=== PATIENT | male | born 1955 | race Caucasian/White ===

== ENCOUNTER 2016-12-19 15:36 | Inpatient (IN) | payer OTHER ==
[2016-12-19] VITALS (9 sets, daily range): BP systolic 145–224; BP diastolic 75–99; PULSE 59–79; RESP 16–26; O2SAT 94–97
[~2016-12-19] VITALS: Ht 180.3 cm; Wt 81.5 kg
--- NOTE | 2016-12-19 15:44 | ED.REPORT ---
HPI-Neurologic Deficit Date of Service Dec 19, 2016 ED Provider: Marvin Fiore MD Patient is a 61 year old male who presents to the ED via EMS due to falling off a ladder. Associated symptoms include confusion, lower back pain, right side chest pain and abdominal pain. He denies headache or neck pain. Per EMS, the patient did not lose consciousness or hit his head. He is unable to answer basic questions about the year or his age. Nursing Notes Stated Complaint: FALL FROM LADDER/QUESTIONABLE CVA Nursing Notes Reviewed: Yes Allergies: Coded Allergies: No Known Allergies (Unverified , 12/19/16) General Time Seen by Provider: 15:52 Chief Complaint Falling Hx Obtained From: Patient, EMS Arrived By: Ambulance Sudden in Onset?: Yes Onset Occurred: Just prior to arrival Symptom Duration: Since onset Location: : Back lower Severity: Current: Moderate Recent Healthcare: No recent doctor visit, No recent hospitalization Similar Sx Previous: No Past Medical History Past Surgical History none reported Smoking History Never Smoker Social History Alcohol Use: "Social" Drug Use: Denies drug use Other Social History: Good social support Ambulatory Status Independent Review of Systems Unable to Obtain ROS Patient condition, Mental status Respiratory: Denies: Non-productive cough, Shortness of breath Cardiovascular: Reports: Chest pain Musculoskeletal: Reports: Back pain, Denies: Extremity pain, Neck pain Neurologic: Denies: Change LOC, Headache Psychiatric: Reports: Change mental status, Confusion Physical Exam Initial Vital Signs Vital Signs (First) Date Time Temp Pulse Resp B/P Pulse Ox O2 Delivery O2 Flow Rate FiO2 12/19/16 15:54 37.3 78 201/99 97 Room Air 12/19/16 16:20 21 Initial VS: Reviewed General/Constitutional: Awake, Alert Head / Eyes: Atraumatic, Normocephalic, PERRL, EOMI Respiratory / Chest: Atraumatic, Breath sounds NL, Breath sounds = bilat, No respiratory distress right chest wall tender Cardiovascular: Heart rate NL, Regular rhythm, Heart sounds NL hypertensive Mental Status: Positive: Confused, Disoriented to time not oriented perseverated equal pulses x4 Neck: Atraumatic, Supple, Full range of motion no cervical spine tenderness ABDOMEN: abrasion to right eflank right lower rib cage and flank tenderness Back: Atraumatic, Full range of motion, No midline vertebral tend, No paraspinal tenderness Upper Extremity / MS: Atraumatic, Full range of motion moving both extremities symmetrically Lower Extremity / Pelvis / MS: Atraumatic, Full range of motion, Pelvis stable moving both extremities symmetrically Skin: Atraumatic, Color NL, No rash, Warm, Dry Psychiatric: Affect NL, Mood NL Interpretation & Diagnostics Lab Results Interpretation Result Diagram: 12/19/16 1614 12/19/16 1552 Test 12/19/16 15:52 12/19/16 16:14 White Blood Count 11.7th/mm3 (3.8-10.1) Red Blood Count 5.48mil/mm3 (4.40-5.80) Mean Corpuscular Volume 84.3fL (81-100) Mean Corpuscular Hemoglobin 27.7pg (27.0-35.0) Mean Corpuscular Hemoglobin Concent 32.9% (32.0-37.0) Red Cell Distribution Width 13.0% (12.3-15.4) Platelet Count 227bil/L (150-400) Neutrophils (%) (Auto) 78.6% (40-74) Lymphocytes (%) (Auto) 11.0% (14-46) Monocytes (%) (Auto) 9.1% (4-12) Eosinophils (%) (Auto) 0.4% (0-5) Basophils (%) (Auto) 0.4% (0-3) Prothrombin Time 11.0sec (8.1-12.5) Prothromb Time International Ratio 1.03ratio Activated Partial Thromboplast Time 22.9sec (22.8-33.0) Sodium Level 141mEq/L (134-144) Potassium Level 4.4mEq/L (3.5-5.2) Chloride Level 101mEq/L (97-108) Carbon Dioxide Level 24mmol/L (18-29) Blood Urea Nitrogen 12mg/dL (8-27) Creatinine 0.77mg/dL (0.76-1.27) Estimat Glomerular Filtration Rate 109mL/min (>59) Glucose Level 123mg/dL (60-99) Calcium Level 9.4mg/dL (8.5-10.1) Total Bilirubin 0.6mg/dL (0.0-1.2) Aspartate Amino Transf (AST/SGOT) 40U/L (0-50) Alanine Aminotransferase (ALT/SGPT) 31U/L (0-44) Alkaline Phosphatase 89U/L (25-160) Troponin T < 0.010ug/L (0.0-0.011) Total Protein 8.0g/dL (6.4-8.4) Albumin 4.7g/dL (3.4-5.0) Hold Louie Top Tube Received (Received) Alcohols < 10mg/dL (0-10) Hemoglobin 14.1g/dL (13.8-17.2) Hematocrit 42.2% (41.0-50.0) ECG Interpretation ECG Interpretation: non specific ST changes Time: 16:15 Interpreted by: ED physician Normal ECG Interpretation: Normal rate (78), Normal sinus rhythm X-Ray Chest Interpretation Chest Xray Interpretation: IMPRESSION: Right-sided pulmonary opacity and multiple rib fractures, better visualized on CT chest dated 12/19/06. In addition, CT chest also demonstrated likely small pneumothorax versus bronchus injury. Dictated by: Sujatha Lipscomb M.D. on 12/19/2016 at 15:34 Approved by: Sujatha Lipscomb M.D. on 12/19/2016 at 15:36 View: Portable, 1 view Interpretation / Wet Read by: Interpret - Radiologist CT Head Interpretation IMPRESSION: No acute process. Dictated by: Guanako Ruiz M.D. on 12/19/2016 at 16:09 Approved by: Guanako Ruiz M.D. on 12/19/2016 at 16:09 Interpretation / Wet Read by: Interpret - Radiologist CT C-Spine Interpretation IMPRESSION: 1. No acute bony injury to the cervical and upper thoracic spine from the foramen magnum to the T4 level. 2. Tiny right apical pneumothorax, secondary to previously noted multiple right rib fractures. Dictated by: Alex Ren M.D. on 12/19/2016 at 16:59 Approved by: Alex Ren M.D. on 12/19/2016 at 17:05 Interpretation / Wet Read by: Interpret - Radiologist CT Abd / Pelvis Interpretation IMPRESSION: 1. Nondisplaced right lateral rib 4th through 12th rib fractures. 2. Mild widened appearance of right major fissure. Given adjacent rib fractures and areas of pleural effusion and pulmonary opacity likely contusion/hemothorax, appearance is most suggestive of small pneumothorax along the fissure line. A ruptured bronchus cannot be definitely excluded. 3. Nondisplaced lucency most suggestive of right scapular fracture. 4. Multiple right transverse fractures within the thoracic and lumbar spine as above. 5. Right lower pelvic subcutaneous fat contusion. 6. Sub-centimeter low attenuation hepatic foci, too small to definitively characterize. The above findings were discussed with Dr. Marvin Reeves on 12/19/16 at 3:25 pm AST. Dictated by: Sujatha Lipscomb M.D. on 12/19/2016 at 15:11 Approved by: Sujatha Lipscomb M.D. on 12/19/2016 at 15:34 Interpretation / Wet Read by: Interpret - Radiologist Re-Eval/Medical Decision Med Decision/Clinical Course Patient was initiated prior to arrival when EMS responders notified us in route for a possible code stroke. The patient was immediately brought to room 9, I saw him immediately evaluated him on arrival. There are no physical exam findings of stroke with the exception of confusion. He is awake and alert but not oriented. After basic physical exam he is immediately sent for head CT and CT of the chest abdomen pelvis to exclude other thoracic injuries. His head CT is unremarkable, his NIH stroke scale is 2 which represents his level of confusion. He has obvious traumatic injury to the right chest wall and right flank. This is not a stroke. TPA is not indicated because this is not a stroke. Additionally he has a small hemopneumothorax as well as transverse process fractures and scapular fracture. He will be admitted by trauma surgery. Hemoglobins have been stable. Medicine will be consulted for the chronic uncontrolled hypertension. Source of Hx: Old records Re-Evaluation/Progress #1: Time of Eval: 16:08 Re-Evaluation/Progress Note: Gathered more information. Performed NIH scale. Re-Evaluation/Progress #2: Time of Eval: 16:39 Re-Evaluation/Progress Note: Discussed results and plan for admit. THe patient understands and agrees to the plan for admit. All questions were addressed. NIH Stroke Scale : Level of Consciousness: Alert and responsive (0) Ask Month & Age: Aphasic (2) Open/Close Eyes/Hand Burial Agent: Performs both tasks (0) Horizontal EO Movements: None (0) Visual Hough: No visual loss (0) Facial Palsy: Normal symmetry (0) Right Arm Motor Drift (10s): No drift 10 sec (0) Left Arm Motor Drift (10s): No drift 10 sec (0) Right Leg Motor Drift (5s): No drift 5 sec (0) Left Leg Motor Drift (5s): No drift 5 sec (0) Limb Ataxia FNF/Heel-Chanel: No ataxia (0) Sensation (Arms/Legs/Face): No sensory loss (0) Language Aphasia: No aphasia, normal (0) Dysarthria: No dysarthria, normal (0) Extinction/Inattention: No exctinct/inattent (0) NIHSS Score: 2 Time NIHSS Performed: 16:06 Date NIHSS Performed: Dec 19, 2016 Consultation #1: Call Returned at: 16:18 Tube Roller: Agrees with eval, Agrees with plan Note: [facility] agrees that the patient does not need TPA Consultation #2: Referral / Consult Name: Joshua An MD Consulted With: Surgeon Call Returned at: 16:36 Tube Roller: Will see patient, Agrees with eval, Agrees with plan, Accepts admit Counseled Regarding: Diagnosis, Lab results, Need for admission Discharge & Departure Impression: Primary Impression: Rib fracture Encounter type: initial encounter Rib fracture type: multiple ribs Fracture type: closed Laterality: right Qualified Code: S22.41XA - Multiple fractures of ribs, right side, initial encounter for closed fracture Additional Impressions: Pulmonary contusion Encounter type: initial encounter Laterality: unspecified laterality Qualified Code: S27.329A - Contusion of lung, unspecified, initial encounter Hemopneumothorax Traumatic brain injury Encounter type: initial encounter Loss of consciousness presence/duration: without LOC Qualified Code: S06.9X0A - Unspecified intracranial injury without loss of consciousness, initial encounter Hypertension Hypertension type: unspecified secondary hypertension Qualified Code: I15.9 - Secondary hypertension, unspecified Multiple transverse process fractures Scapular fracture Elbow contusion Disposition: ADMITTED TO HOSPITAL Discharge Condition All VS Reviewed: Yes Condition: Stable Crit Care Except Billable Proc Time Spent: 75-104 minutes Services Performed: Patient management by me, Time spent at bedside, Reviewing test results Critical Care Notes: See MDM Scribe Attestation Portions of this note were transcribed by Olivia Read. I, Dr. Merritt Solares personally performed the history, physical exam and medical decision-making; I reviewed and confirmed the accuracy of the information in the transcribed note. Signed by: Morena Soler, 12/19/16 and 1723 Marvin Reeves DO Dec 19, 2016 15:44 Shandra Read Dec 19, 2016 15:56
[2016-12-19] MEDS ORDERED: 0.9% Sodium Chloride 1,000 ML IV ONE (15:50)
[2016-12-19] MEDS ORDERED: Ondansetron 2 mg/mL 2 mL Inj IVPUSH ONE (15:50)
[2016-12-19 16:08] LABS: BASOPHILS % (AUTO) 0.4 % (0-3); EOSINOPHILS % (AUTO) 0.4 % (0-5); MONOCYTES % (AUTO) 9.1 % (4-12); Mean Corpuscular Hemoglobin 27.7 pg (27.0-35.0); Mean Corpuscular Volume 84.3 fL (81-100); NEUTROPHILS % (AUTO) 78.6 % (40-74); Platelet Count 227 bil/L (150-400)
--- NOTE | 2016-12-19 16:11 | DRSVH ---
PROCEDURE: CT BRAIN WITHOUT CONTRAST ([id number]) INDICATIONS: fall off ladder, acute confusion TECHNIQUE: Noncontrast 4.5 mm thick angled axial sections acquired from the foramen magnum to the vertex, with c oronal reformats. COMPARISON: None. FINDINGS: Image quality: Excellent. CSF spaces: Basal cisterns are patent. No extra-axial fluid collections. The ventricles are symmet keisha in size and shape. Brain: No intracranial bleeds or masses. There is cerebral volume loss for age, with resultant vent ricular and sulcal prominence. There are periventricular and deep white matter chronic small vessel ischemic changes. There is intracranial internal carotid artery atherosclerosis. Skull and face: Calvarium and visualized facial bones appear intact, without suspicious lesions. Sinuses: Visualized sinuses and mastoids are clear. IMPRESSION: No acute process. Dictated by: Guanako Ruiz M.D. on 12/19/2016 at 16:09 Approved by: Guanako Ruiz M.D. on 12/19/2016 at 16:09
[2016-12-19] MEDS ORDERED: HYDROmorphone 0.5 mg/0.5 mL iSecure Syringe IVPUSH PRN ×2 (16:25→17:10)
[2016-12-19 16:34] LABS: INR 1.03 ratio
--- NOTE | 2016-12-19 16:35 | DRSVH ---
PROCEDURE: CT CHEST, ABDOMEN AND PELVIS WITH CONTRAST ([id number]) INDICATIONS: right sided chest, abd, back pain TECHNIQUE: After the administration of intravenous contrast, 5 mm thick sections acquired from the lung apices t o the symphysis. 5 mm thick coronal and sagittal reformats were acquired. Additional 7 mm thick cor onal maximum intensity projection (MIP) reformats acquired through the lungs. Optional 10-minute del ayed imaging may be performed from the kidneys to the bladder. For radiation dose reduction, the fol lowing was used: automated exposure control, adjustment of mA and/or kV according to patient size. COMPARISON: None. FINDINGS: Image quality: Excellent. CHEST: Lungs: Minimal right pleural effusion. There is mild widening and air within the right major fissur e. Faint patchy opacities are present in the right upper and mid lobes. Mediastinum: No mediastinal hematomas. Heart size is normal. No pericardial effusion. Thoracic ao rta and pulmonary arteries demonstrate normal size and enhancement. No mediastinal or hilar adenopat hy. Esophagus is normal in caliber. No hiatal hernia. Chest wall: Nondisplaced right lateral rib fractures, 4th through 12th. No subcutaneous emphysema. No axillary or supraclavicular adenopathy. Thyroid gland demonstrates a 6 mm focus of low attenuat ion in the right lobe. ABDOMEN: Solid organs: Liver is mildly enlarged. The spleen is normal in size. Two subcentimeter foci of lo w attenuation are present in the liver, the largest measuring 5 mm. Gallbladder demonstrates a mild a ppearance of hyperdensity in the dependent, likely adherent sludge or stone. Biliary system is non-d ilated. Pancreas enhances normally, without transection. No adrenal hematomas. Both kidneys enhanc e normally, without hydronephrosis or lacerations. Peritoneum and bowel: No free fluid or air. Unenhanced bowel loops demonstrate normal wall thicknes s and caliber. Colonic diverticula are present without inflammatory change. Nodes and vessels: No retroperitoneal or mesenteric adenopathy. Aorta and inferior vena cava are no rmal in size and enhancement. Miscellaneous: Fat containing ventral hernia is present.. PELVIS: Genitourinary: Bladder wall thickness is normal. Prostate hypertrophy with calcifications. Miscellaneous: Fat containing inguinal hernias. Soft tissue contusion is noted in the subcutaneous fat of the right lower pelvis. Bones: Pelvic ring and hip joints appear intact. No vertebral compression fractures. Nondisplaced right transverse process fractures at T10, L1, L2 and L3. Nondisplaced lucency within the right scap javi on series 6 image 15. IMPRESSION: 1. Nondisplaced right lateral rib 4th through 12th rib fractures. 2. Mild widened appearance of right major fissure. Given adjacent rib fractures and areas of pleural effusion and pulmonary opacity likely contusion/hemothorax, appearance is most suggestive of small p neumothorax along the fissure line. A ruptured bronchus cannot be definitely excluded. 3. Nondisplaced lucency most suggestive of right scapular fracture. 4. Multiple right transverse fractures within the thoracic and lumbar spine as above. 5. Right lower pelvic subcutaneous fat contusion. 6. Sub-centimeter low attenuation hepatic foci, too small to definitively characterize. The above findings were discussed with Dr. Marvin Reeves on 12/19/16 at 3:25 pm AST. Dictated by: Sujatha Lipscomb M.D. on 12/19/2016 at 15:11 Approved by: Sujatha Lipscomb M.D. on 12/19/2016 at 15:34
--- NOTE | 2016-12-19 16:37 | DRSVH ---
PROCEDURE: X-RAY CHEST ONE VIEW, PORTABLE ([id number]) INDICATIONS: right sided chest pain TECHNIQUE: One view of the chest was acquired. COMPARISON: None. FINDINGS: Surgical changes and devices: None. Lungs and pleura: No pleural effusions or pneumothorax. Pulmonary opacity is noted on the right. Mediastinum: Mediastinal contours appear normal. Heart size is normal. Bones and chest wall: No suspicious bony lesions. Overlying soft tissues appear unremarkable. Mult iple right sided rib fractures are noted, better visualized on CT chest dated 12/19-. IMPRESSION: Right-sided pulmonary opacity and multiple rib fractures, better visualized on CT chest d ated 12/19/06. In addition, CT chest also demonstrated likely small pneumothorax versus bronchus injury . Dictated by: Sujatha Lipscomb M.D. on 12/19/2016 at 15:34 Approved by: Sujatha Lipscomb M.D. on 12/19/2016 at 15:36
[2016-12-19 16:51] LABS: TROPONIN T < 0.010 ug/L (0.0-0.011)
--- NOTE | 2016-12-19 17:07 | DRSVH ---
PROCEDURE: CT CERVICAL SPINE WITHOUT CONTRAST ([id number]) INDICATIONS: 61-year-old male status post fall from ladder. TECHNIQUE: Noncontrast 3 mm thick sections acquired from the skull base to the T4 level. Sagittal and coronal r eformats were then constructed. For radiation dose reduction, the following was used: automated exp osure control, adjustment of mA and/or kV according to patient size. COMPARISON: Merged With [facility], CT, CT CHEST ABD PELVIS W CON, 12/19/2016, 15:58. FINDINGS: Image quality: Excellent. Bones: No fractures or dislocations. Visualized superior ribs are intact. There is mild mid cervica l spine disc, left greater than right facet joint degeneration. Soft tissues: Prevertebral soft tissues are normal in thickness. No paravertebral hematomas. Inferi or most images demonstrate tiny right apical pneumothorax. IMPRESSION: 1. No acute bony injury to the cervical and upper thoracic spine from the foramen magnum to the T4 le hima. 2. Tiny right apical pneumothorax, secondary to previously noted multiple right rib fractures. Dictated by: Alex Ren M.D. on 12/19/2016 at 16:59 Approved by: Alex Ren M.D. on 12/19/2016 at 17:05
[2016-12-19] MEDS ORDERED: Alum-Mag Hydrox-Simeth 30 mL Suspension PO PRN (17:10)
[2016-12-19] MEDS ORDERED: Ondansetron 2 mg/mL 2 mL Inj IVPUSH PRN (17:10)
--- NOTE | 2016-12-19 17:42 | PCM.HPSURG ---
Subjective Date of Service: Dec 19, 2016 Referring Provider: Admitting Physician: Primary Care Physician: [place] Attending Physician: Chief Complaint Right elbow and rib pain post fall from ladder. 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 He reportedly fell 6 feet, his coworker dropped him off at home. He was confused and complaining of elbow and back pain but able to ambulate independently. His daughter called EMS. Due to his level of confusion and memory loss he was evaluated for stroke. He was found to have an NIH stroke scale of 2 which is not concerning for stroke but continues to be unsure of how he got here to the hospital though he knows he is at the hospital and that the president is Khushbu. Subsequent imaging revealed multiple fractures as listed below. He is complaining of right-sided elbow and posterior rib pain. Patient's daughter is a assistant tennis coach nurse here. She reports patient has white coat hypertension in that he has elevated blood pressures when he goes to see the doctor and has even been evaluated for hypertensive crisis however when he checks his blood pressures at home (which he did daily for 6 months) they are always less than 120 systolic. 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 Hx Alcohol Use: Yes (once a month) Hx Substance Use: No Hx Tobacco Use: Yes (quit 28 years ago) PMH Cardiovascular History Cardiovascular History: Positive for:: Hypertension Skin History Other Skin Pertinent History: Recent R axillary MRSA infection Other History Hx Any Other Health Problems?: No Other History: Denies:: Cancer Hospitalization Diabetes: No Social History Hx Alcohol Use: Yes (once per month)Hx Substance Use: No Smoking Status: Former Smoker (quit 28 years ago) Living Arrangement: with Family Family History PMH Family Diagnosis: Cancer (unknown) Review of Systems Constitutional: Denies: Chills, Fever, Weakness ENT: Denies: Dysphagia, Membranes Dry Cardiovascular: Denies: Edema Respiratory: Denies: Cough, Shortness of Breath, Wheezing Gastrointestinal: Denies: Abdominal Pain, Nausea, Vomiting Musculoskeletal: Reports: Back Pain (right side ribs), Other (right elbow pain) Skin: Reports: Other (multiple scratches on right elbow), Denies: Bruising Neurological: Reports: Confusion, Denies: Numbness, Tremors, Weakness H&P Surgical Exam Exam General: Alert (Oriented to place and president, does not remember how he got to the hospital), Mild Distress Neck: Supple, Full Range of Motion Lungs: Clear to Auscultation, Other (Lung sounds in all solorio, suboptimal air movement due to pain with breaths) Heart: Regular Rate/Rhythm Abdomen: Benign, Soft Extremities: Warm, Other (right elbow abrasion with minor swelling, full range of motion without pain) Neuro: Grossly Neurologically Intact, Normal Speech, Other (perseverating, short term memory loss, ) Catheters: None Lab & Micro Results: Mild leukocytosis of 11.7, blood alcohol negative. Serial Hgb/Hct 15.2/46.2 and 14.1/42.2 Diagnostics: CT brain without contrast shows no acute process CT chest abdomen pelvis with contrast: IMPRESSION: 1. Nondisplaced right lateral rib 4th through 12th rib fractures. 2. Mild widened appearance of right major fissure. Given adjacent rib fractures and areas of pleural effusion and pulmonary opacity likely contusion/hemothorax, appearance is most suggestive of small pneumothorax along the fissure line. A ruptured bronchus cannot be definitely excluded. 3. Nondisplaced lucency most suggestive of right scapular fracture. 4. Multiple right transverse fractures within the thoracic and lumbar spine as above. 5. Right lower pelvic subcutaneous fat contusion. 6. Sub-centimeter low attenuation hepatic foci, too small to definitively characterize. The above findings were discussed with Dr. Marvin Wilhelm on 12/19/16 at 3:25 pm AST. Dictated by: Sujatha Lipscomb M.D. on 12/19/2016 at 15:11 X-ray right elbow shows no acute bony injury to the right elbow CT cervical spine without contrast: IMPRESSION: 1. No acute bony injury to the cervical and upper thoracic spine from the foramen magnum to the T4 level. 2. Tiny right apical pneumothorax, secondary to previously noted multiple right rib fractures. Dictated by: Alex Ren M.D. on 12/19/2016 at 16:59 Chest x-ray: IMPRESSION: Right-sided pulmonary opacity and multiple rib fractures, better visualized on CT chest dated 12/19/06. In addition, CT chest also demonstrated likely small pneumothorax versus bronchus injury. Dictated by: Sujatha Lipscomb M.D. on 12/19/2016 at 15:34 Assessment & Plan Assessment 61 yo male who from a ladder at work today sustained multiple injuries including nondisplaced fracture of right lateral ribs 4 through 12, Nondisplaced right transverse process fractures at T10, L1, L2 and L3, possible fracture of the right scapula, small pneumothorax, and likely concussion. He has been consistently hypertensive ([id number]) since arrival at the emergency department. with reported history of white coat hypertension. Pain Evaluation: Adequate Pain Control VTE Prophylaxis: SCDs Plan: Nursing neuro checks Pain control with IV Toradol and Dilaudid as well as PO Tylenol and ibuprofen as needed. Consult hospitalist team for hypertension and work up for medical cause of fall since reason for fall is unknown, we appreciate their recommendations. CXR and CBC in AM DVT prophylaxis: SCDs, subcutaneous heparin Patient was admitted under inpatient status with expected length of stay greater than 2 midnights due to severity of presenting symptoms, and need for pain control. Resuscitation Status: CPR: Attempt Resuscitation Attending Statement: I personally interviewed and examined the pt, and I agree with Dr. Cardoso's assessment and plan. Hospital admission, will consult hospitalist and neurology. copies: Joshua An MD, Erika R DO Dec 19, 2016 17:42 Joshua An MD Dec 21, 2016 12:42
--- NOTE | 2016-12-19 17:49 | DRSVH ---
PROCEDURE: X-RAY RIGHT ELBOW COMPLETE, MINIMUM THREE VIEWS ([id number]) INDICATIONS: 61 year-old male with right elbow pain after fall from ladder. TECHNIQUE: 3 views of the elbow were acquired. COMPARISON: None. FINDINGS: Bones: No fractures or dislocations. No suspicious bony lesions. Soft tissues: No elbow joint effusion. No suspicious soft tissue calcifications. IMPRESSION: No acute bony injury to the right elbow. Dictated by: Alex Ren M.D. on 12/19/2016 at 17:46 Approved by: Alex Ren M.D. on 12/19/2016 at 17:47
--- NOTE | 2016-12-19 18:30 | NUR ---
Admit from ER to 1006 Pt. brought from ER to room 1006 at 1800. Hypertensive; see vitals; MD aware. Pt. alert, forgetful, repeating questions and answers. MD at bedside assessing pt
[2016-12-19] MEDS ORDERED: 0.9% Sodium Chloride 1,000 ML IV SCH (18:50)
[2016-12-19] MEDS ORDERED: LORazepam 0.5 mg Tablet PO ONE (19:00)
[2016-12-19] MEDS ORDERED: Labetalol 5 mg/mL 4 mL Inj IVPUSH ONE (19:15)
[2016-12-19] MEDS: 0.9% Sodium Chloride 1,000 ML IV SCH (19:53)
[2016-12-19 20:34] LABS: APPEARANCE,URINE CLEAR (CLEAR,HAZY); COLOR,URINE YELLOW (YELLOW); OCCULT BLOOD,URINE MODERATE (NEGATIVE); UROBILINOGEN,URINE NORMAL (NORMAL)
--- NOTE | 2016-12-19 20:57 | PCM.HPMED ---
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 He reportedly fell 6 feet, his coworker dropped him off at home. He was confused and complaining of elbow and back pain but able to ambulate independently. His daughter called EMS. Due to his level of confusion and memory loss he was evaluated for stroke. He was found to have an NIH stroke scale of 2 which is not concerning for stroke but continues to be unsure of how he got here to the hospital though he knows he is at the hospital and that the president is Khushbu. Subsequent imaging revealed multiple fractures as listed below. He is complaining of right-sided elbow and posterior rib pain. Patient's daughter is a shift boss nurse here. She reports patient has white coat hypertension in that he has elevated blood pressures when he goes to see the doctor and has even been evaluated for hypertensive crisis however when he checks his blood pressures at home (which he did daily for 6 months) they are always less than 120 systolic. Patient himself states that he was on metoprolol , lisinopril and it did not work. Patient does not have a primary care doctor. Patient states that he has really no idea how he fell, cannot recall whether he blacked out or had any kind of pain prior to the incident. His coworkers also did not know why he fell. In the ER CT of head was negative for hemorrhage chest x-ray showed right-sided pulmonary opacity multiple different fractures CT of C-spine showed tiny right apical pneumothorax, multiple rib fractures, a CT abdominopelvic showed a right scapular fracture, right transverse fracture of lumbar thoracic spine, small pneumothorax, nondisplaced fractures of ribs 4 through 12. EKG was read as nonspecific ST changes, normal sinus rhythm labs were fairly unremarkable with the exception of elevated white count at 11.7. Troponins negative. Patient currently denies any fevers, chills or prior infections. He states that his short-term memory loss, it appears to be confused, he just had a course of Bactrim for right axilla MRSA infection. He does not believe he was dehydrated but was quite unsure. He was repeatedly asking "why am I here?". And "do I have to stay here in the hospital?". He denies photophobia, phonophobia and headaches. Review of Systems: Gen.: No weight gain patient has been having fevers and malaise Eyes: no visual disturbances or blurring vision HEENT: No nose/throat drainage, no pain in ears or throat, no hearing loss Lymph: No lymph nodes noted Cardiac: No chest pain, orthopnea, PND, palpitations , pedal edema or dyspnea on exertion Pulmonary: not wheezing or bringing up of sputum neg for worsening dyspnea and cough, and left-sided chest pain GI: No anorexia nausea vomiting blood or black in the stool : no dysuria hematuria urinary frequency or decrease in urine output Musculoskeletal: Patient does have back pain and the pain. Some level of elbow pain Neuro: No syncope, seizures no loss of consciousness no new focal weakness, numbness or tingling Psychiatric: Positive for anxiety On review of systems negative except as stated above in the history of present illness Allergies Coded Allergies: No Known Allergies (Unverified , 12/19/16) Home Medications Patient does not take all medications. 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 No ptosis, PERRL Neck: No masses, trachea midline, no thyromegaly Lungs: CTA with normal respiratory effort, no crackles or wheezes CV: RRR, no murmurs/rubs/gallops, normal PMI GI: Soft, non-tender with no hepatosplenomegaly MSK: no digital cyanosis, lower extremity strength is equal and symmetric, finger door operator is equal and symmetric Skin: Warm and dry. Has several superficial bruises and scratches on the arms and forearms Psych: A&O X2, with mildly concerned/anxious affect Neurological: CN II to 12 grossly normal, questionable right eye droop. Finger- to-nose, alternating hands are unremarkable Babinski is negative. Unable to elicit patellar and Achilles reflexes. Lab and Diagnostics Labs Laboratory Tests Test 12/19/16 15:52 12/19/16 16:14 12/19/16 20:19 White Blood Count 11.7th/mm3 (3.8-10.1) Red Blood Count 5.48mil/mm3 (4.40-5.80) Hemoglobin 15.2g/dL (13.8-17.2) 14.1g/dL (13.8-17.2) Hematocrit 46.2% (41.0-50.0) 42.2% (41.0-50.0) Mean Corpuscular Volume 84.3fL (81-100) Mean Corpuscular Hemoglobin 27.7pg (27.0-35.0) Mean Corpuscular Hemoglobin Concent 32.9% (32.0-37.0) Red Cell Distribution Width 13.0% (12.3-15.4) Platelet Count 227bil/L (150-400) Neutrophils (%) (Auto) 78.6% (40-74) Lymphocytes (%) (Auto) 11.0% (14-46) Monocytes (%) (Auto) 9.1% (4-12) Eosinophils (%) (Auto) 0.4% (0-5) Basophils (%) (Auto) 0.4% (0-3) Prothrombin Time 11.0sec (8.1-12.5) Prothromb Time International Ratio 1.03ratio Activated Partial Thromboplast Time 22.9sec (22.8-33.0) Sodium Level 141mEq/L (134-144) Potassium Level 4.4mEq/L (3.5-5.2) Chloride Level 101mEq/L (97-108) Carbon Dioxide Level 24mmol/L (18-29) Blood Urea Nitrogen 12mg/dL (8-27) Creatinine 0.77mg/dL (0.76-1.27) Estimat Glomerular Filtration Rate 109mL/min (>59) Glucose Level 123mg/dL (60-99) Calcium Level 9.4mg/dL (8.5-10.1) Total Bilirubin 0.6mg/dL (0.0-1.2) Aspartate Amino Transf (AST/SGOT) 40U/L (0-50) Alanine Aminotransferase (ALT/SGPT) 31U/L (0-44) Alkaline Phosphatase 89U/L (25-160) Troponin T < 0.010ug/L (0.0-0.011) Total Protein 8.0g/dL (6.4-8.4) Albumin 4.7g/dL (3.4-5.0) Hold Louie Top Tube Received (Received) Alcohols < 10mg/dL (0-10) Urine Color Yellow (YELLOW) Urine Appearance Clear (CLEAR,HAZY) Urine pH 5.0 (5.0-8.0) Urine Specific [place] 1.015 (1.003-1.035) Urine Protein Negativemg/dL (NEG,TRACE) Urine Glucose (UA) Negativemg/dL (NEGATIVE) Urine Ketones Negativemg/dL (NEGATIVE) Urine Occult Blood Moderate (NEGATIVE) Urine Nitrite Negative (NEGATIVE) Urine Bilirubin Negative (NEGATIVE) Urine Urobilinogen Normalmg/dL (NORMAL) Urine Leukocyte Esterase Negative (NEGATIVE) Urine RBC 3-10/hpf (0-2) Urine WBC 0-5/hpf (0-5) Urine Epithelial Cells Few/hpf (NONE-MOD) Urine Crystals None seen (NONE SEEN) Urine Bacteria Few/hpf (NONE-FEW) Urine Hyaline Casts None/lpf (NONE) Urine Granular Casts None seen (NONE SEEN) Urine Waxy Casts None seen (NONE SEEN) Urine Red Blood Cell Casts None seen (NONE SEEN) Urine White Blood Cell Casts None seen (NONE SEEN) Urine Mucus None seen (None Seen) Urine Trichomonas None seen (NONE SEEN) Urine Yeast None (NONE SEEN) Urinalysis Comment None Result Diagram: 12/19/16 1611 12/19/16 7621 X-Rays, CTs and MRIs PROCEDURE: X-RAY RIGHT ELBOW COMPLETE, MINIMUM THREE VIEWS ([id number]) INDICATIONS: 61 year-old male with right elbow pain after fall from ladder. IMPRESSION: No acute bony injury to the right elbow. Dictated by: Alex Ren M.D. on 12/19/2016 at 17:46 Approved by: Alex Ren M.D. on 12/19/2016 at 17:47 PROCEDURE: CT CERVICAL SPINE WITHOUT CONTRAST ([id number]) IMPRESSION: 1. No acute bony injury to the cervical and upper thoracic spine from the foramen magnum to the T4 level. 2. Tiny right apical pneumothorax, secondary to previously noted multiple right rib fractures. Dictated by: Alex Ren M.D. on 12/19/2016 at 16:59 Approved by: Alex Ren M.D. on 12/19/2016 at 17:05 PROCEDURE: CT BRAIN WITHOUT CONTRAST ([id number]) CT head without INDICATIONS: fall off ladder, acute confusion IMPRESSION: No acute process. Dictated by: Guanako Ruiz M.D. on 12/19/2016 at 16:09 Approved by: Guanako Ruiz M.D. on 12/19/2016 at 16:09 PROCEDURE: X-RAY CHEST ONE VIEW, PORTABLE ([id number]) INDICATIONS: right sided chest pain IMPRESSION: Right-sided pulmonary opacity and multiple rib fractures, better visualized on CT chest dated 12/19/06. In addition, CT chest also demonstrated likely small pneumothorax versus bronchus injury. Dictated by: Sujatha Lipscomb M.D. on 12/19/2016 at 15:34 Approved by: Sujatha Lipscomb M.D. on 12/19/2016 at 15:36 PROCEDURE: CT CHEST, ABDOMEN AND PELVIS WITH CONTRAST ([id number]) INDICATIONS: right sided chest, abd, back pain IMPRESSION: 1. Nondisplaced right lateral rib 4th through 12th rib fractures. 2. Mild widened appearance of right major fissure. Given adjacent rib fractures and areas of pleural effusion and pulmonary opacity likely contusion/ hemothorax, appearance is most suggestive of small pneumothorax along the fissure line. A ruptured bronchus cannot be definitely excluded. 3. Nondisplaced lucency most suggestive of right scapular fracture. 4. Multiple right transverse fractures within the thoracic and lumbar spine as above. 5. Right lower pelvic subcutaneous fat contusion. 6. Sub-centimeter low attenuation hepatic foci, too small to definitively characterize. Dictated by: Sujatha Lipscomb M.D. on 12/19/2016 at 15:11 Approved by: Sujatha Lipscomb M.D. on 12/19/2016 at 15:34 Dictated by: Delma Guerra MD, PhD on 12/20/2016 at 8:52 Approved by: Delma Guerra MD, PhD on 12/20/2016 at 8:59 12-lead ECG Nonspecific ST changes Cardiac Echo Impressions Assessment & Plan This is a 61-year-old male who got admitted after traumatic fall from a ladder at work. He has several rib fractures, thoracolumbar fractures, scapular fracture, small pneumothorax. Medicine team is consulted by trauma/surgery due to hypertension at the time of his arrival to the ER. # Fall, truamatic injuries POA: cardio neurological etiologies must be ruled out in this 61 yo male with uncontrolled HTN. CT head WO was negative for hemorrhage -- R/O ACS -- [facility] Brain stroke protocol -- US Echo, Carotid US in the AM -- neuro checks Q4H -- Telemonitoring -- Consulted Dr. Sinclair from neurology -- Labetalol PRN with parameters for HTN -- Lisinopril 20 mg PO is given in the ER # Postconcussive syndrome, POA -- Patient's family is advised to keep keep the room quiet, dark turn the TV off and limited number of visitors to avoid excessive stimulation -- Neurology is contacted. -- Dr. Chaudhry is following the patient # Anxiety disorder, POA -- One-time dose of by mouth Ativan 0.5 mg is given, this may help with the hypertension also with MRI procedure 12/19 -- Ativan by mouth 0.5 mg twice a day was ordered when necessary # Hypertensive urgency, POA: Patient continued to have systolic blood pressure in 200s and diastolic around 100 upon arriving to the floor. He was given lisinopril 20 mg in the ER. -- He was given one-time dose of labetalol 20 mg IV upon arrival to floor on 12/19 -- Enalapril 0.625 every 6 hours when necessary is ordered with parameters, staff are asked to notify the M.D. if these are used -- Lisinopril 20 mg QD PO, Further BP control pending stroke r/o # Small pneumothorax as evidenced by the CT scan of chest, POA -- Dr. An has ordered f/u CXR on 12/21 Assessment #5 multiple rib fractures, thoracolumbar fractures, scapular fracture on the right side, ongoing -- Pain control with Dilaudid IV -- Dr. An, primary team is managing -- Continue to monitor Disposition: Patient is admitted to Dr. An with medicine consultation. Pain Evaluation: Adequate Pain Control VTE Prophylaxis: Sub-Q Enoxaparin Resuscitation Status: CPR: Attempt Resuscitation ( is his alternate decision maker) Time spent 45 minutes Natalie Pedroza DO Dec 19, 2016 17:[address] changes Cardiac Echo Impressions Echocardiogram Report Interpretation Summary 1. Small left ventricular cavity size with evidence for LVH (wall thickness in the range of 1.6 to 1.8 cm) with hyperdynamic systolic function. 2. Normal right ventricular size and systolic function. 3. No evidence for valvular pathology The patient was tachycardic during the exam. No old study for comparison Assessment & Plan This is a 61-year-old male who got admitted after traumatic fall from a ladder at work. He has several rib fractures, thoracolumbar fractures, scapular fracture, small pneumothorax. Medicine team is consulted by trauma/surgery due to hypertension at the time of his arrival to the ER. #Acute Sinus tachycardia on the 6/2 AM: secndary to dehydration, severe anxiety -- This is noted by the Pickie tech and I was paged to the room. Gave patient bolus fluids, and milligram of IV Ativan , waited for some improvement and then administered 5 mg of IV metoprolol. Patient stated was quickly brought under control with these measures. Increased maintenance 150 mL/h, later in the evening dropped to 1 25 mL/h NSS # Fall secondary to dizziness secondary to cerebrovascular stenosis and poor vascular perfusion, POA -- ACS was ruled out -- Ultrasound of the heart is done: "Small left ventricular cavity size with evidence for LVH (wall thickness in the range of 1.6 to 1.8 cm) with hyperdynamic systolic function", discussed findings with a iron handler Dr. Wynne. The Andres that patient is severely dehydrated, bolus fluids were given, IV fluid maintenance status changed 150 mL/ h. -- Patient is requiring IV Dilaudid for pain control -- Neurological checks every 4 hours -- CT angiogram revealed "1. Moderate to severe atherosclerotic stenosis involving the proximal cavernous segment of the right internal carotid artery. 2. Severe atherosclerotic stenosis of the distal M1 segment of the right middle cerebral artery. 3. Mild atherosclerotic stenosis of the M1 segment of the right middle cerebral artery." MR angiogram revealed "1. High grade stenosis involving the M1 segment of the left middle cerebral artery. 2. Moderate to high-grade stenosis involving the A1 segment of the left anterior cerebral artery. 3. Moderate stenosis involving the M1 segment of the right middle cerebral artery." -- Dr. Chaudhry was notified this a.m. of these findings, I have discussed the case with Dr. sinclair him again around [address] sinclair says that he actually called [facility] regarding these findings, but [facility] is not recommending any emergent procedures. Dr. sinclair recommends that we keep patient's SBP around 130. He does not want to help perfuse patient. He would like to see the patient for a close f/u in his office/clinic and will order a f/ u CTA. -- Currently patient is getting by mouth lisinopril 20 mg daily, he is requiring IV labetalol in the evening. When necessary enalapril was ordered for overnight coverage. -- Will order metoprolol twice a day 25 mg starting 6/3 AM. to better control blood pressures, now that stroke is ruled out. -- Carotid ultrasound scan: Result is still pending ( we already have the results from CTA and MRA neck) # Postconcussive syndrome, POA -- Patient's family is advised to keep keep the room quiet, dark turn the TV off and limited number of visitors to avoid excessive stimulation -- Neurology is contacted. -- Dr. Chaudhry is following the patient # Anxiety disorder, POA -- One-time dose of by mouth Ativan 0.5 mg is given, this may help with the hypertension also with MRI procedure 12/19 -- Patient required 1 mg of IV Ativan at the time of ultrasound and echo as he got very anxious. -- Ativan by mouth 0.5 mg twice a day was ordered when necessary # Hypertensive urgency, POA: Patient continued to have systolic blood pressure in 200s and diastolic around 100 upon arriving to the floor. He was given lisinopril 20 mg in the ER. -- He was given one-time dose of labetalol 20 mg IV upon arrival to floor on 12/19 10 mg IV labetalol on the evneing on 12/20 -- Enalapril 0.625 every 6 hours when necessary is ordered with parameters, staff are asked to notify the M.D. if these are used -- Will start patient on metoprolol 25 mg PO BID on 12/21 AM # Small pneumothorax as evidenced by the CT scan of chest, POA: repeat CXR showed no pneumothorax, resolved -- Dr. An is the primary team with medicine consulting, he confirmed this to me on 12/20 AM Assessment #5 multiple rib fractures, thoracolumbar fractures, scapular fracture on the right side, ongoing -- Pain control with Dilaudid IV -- Dr. An, primary team is managing -- Continue to monitor Disposition: Patient was initially admitted to see as an observation patient, due to severe tachycardia on 12/20 (which was quickly brought under control while patient was still on [facility]), severe stenosis findings on CT of brain and MRA of brain, a decision was made to move patient to [facility] and second floor on the 12/20. Dr. Chaudhry will continue to follow the patient, further management per purple/ yellow team. Pain Evaluation: Adequate Pain Control Resuscitation Status: CPR: Attempt Resuscitation ( is his alternate decision maker) Time spent 45 minutes Natalie Pedroza DO Dec 19, 2016 17:45
--- NOTE | 2016-12-19 22:10 | NUR ---
Left floor for MRI Pt. left floor for MRI at 2144. Addendum: 12/19/16 at 2231 by RAMSEY BLAIR RN Pt. back from MRI At 2231, pt. back on [facility] floor.
[2016-12-19 22:31] LABS: TROPONIN T 0.01 ug/L (0.0-0.011)
[2016-12-19] MEDS: HYDROmorphone 1 mg/mL Inj IVPUSH PRN (22:47)
[2016-12-20] VITALS (14 sets, daily range): BP systolic 107–194; BP diastolic 63–89; PULSE 56–86; RESP 14–20; O2SAT 92–97
--- NOTE | 2016-12-20 00:15 | NUR ---
Off floor for CT. Pt. off floor to CT at 2345. Pt. back on [facility] floor at 0015.
[2016-12-20] MEDS: Heparin 5,000 Unit/mL Inj SUBQ SCH ×3 (00:19→16:15)
[2016-12-20] MEDS ORDERED: Labetalol 5 mg/mL 20 mL Inj IV ONE ×2 (00:30→18:52)
--- NOTE | 2016-12-20 00:30 | NUR ---
Night hospitalist paged. outdoor studies professor hospitalist Alley VELASQUEZ paged regarding results from CTA. No new orders from Alley VELASQUEZ at this time. Alley VELASQUEZ wants this RN to continue to monitor neuro function, and to page back with any changes. Will continue to monitor.
[2016-12-20] MEDS: HYDROmorphone 1 mg/mL Inj IVPUSH PRN ×5 (01:48→21:21)
--- NOTE | 2016-12-20 03:55 | NUR ---
paged/ Education Alley VELASQUEZ paged around 0150. Family and this RN concerned about hematoma on right side of pelvis. Alley VELASQUEZ came to assess pt., and talk with pt. and . No new orders for now. Place ice pack on pelvis to decrease swelling. Gave education to family earlier in shift about the importance of keeping the room with low stimuli due to concussion protocol. only in room now, and both pt. and are sleeping.
[2016-12-20 05:41] LABS: BASOPHILS % (AUTO) 0.2 % (0-3); EOSINOPHILS % (AUTO) 0.1 % (0-5); MONOCYTES % (AUTO) 14.7 % (4-12); Mean Corpuscular Hemoglobin 27.8 pg (27.0-35.0); Mean Corpuscular Volume 85.8 fL (81-100); NEUTROPHILS % (AUTO) 69.9 % (40-74); Platelet Count 243 bil/L (150-400)
[2016-12-20 06:16] LABS: Creatine Kinase 397 U/L (21-232)
--- NOTE | 2016-12-20 08:15 | PCM.PNSURG ---
Subjective Date of Service: Dec 20, 2016 Date of Service: Dec 20, 2016 Visit Information: Reason for Visit Alt Loc,Rib Fractures,Pulmonary Contusion,Back pain Date of Admission: Dec 19, 2016 at 17:36 Hospital Day #2 Subjective: Patient is feeling better this morning but still in pain. His pain is localized to his right torso. He has developed a hematoma on his right flank that has been marked and is improving with ice. His elbow pain is no longer a concern for him. He is not experiencing any fever, chills, SOB, or pain with the exception of his right ribs and flank. Patient is tolerating clear liquid diet and is feeling hungry. He feels like pieces of his memory are returning as in he thinks he remembers hitting the ground but doesn't remember what led up to the fall, being in the emergency department or meeting me yesterday evening. Pain Management: PO, IV Push Neurological: Confusion (Pieces of his memory are coming back and this has overall improved.) Objective Objective Overweight male resting comfortably in no acute distress. Vital Sign- Last 8 Hours Date Time Temp Pulse Resp B/P Pulse Ox O2 Delivery O2 Flow Rate FiO2 12/20/16 07:36 72 12/20/16 05:24 56 12/20/16 05:03 36.9 70 20 194/89 92 Room Air 12/20/16 03:25 36.8 66 14 150/78 97 Room Air 12/20/16 01:07 37.3 61 20 187/83 97 Room Air Intake and Output- Last 8 Hour 12/20/16 Cumulative From/Thru 07:00 12/19/16 15:54 - 12/20/16 06:49 Intake Total 200 ml 1200 ml Output Total 975 ml 975 ml Balance -775 ml 225 ml Intake Oral 200 ml 200 ml IV Total 1000 ml Output Urine Total 975 ml 975 ml General: Alert, Cooperative, Mild Distress (with movement such as laughing or turning) Neck: Supple, Full Range of Motion Lungs: Normal Air Movement, Crackles (right mid lung) Heart: Regular Rate/Rhythm, Murmur (systolic, chronic per patient) Abdomen: Benign, Soft, Other (hematoma on right lateral flank superior to illiac crest within marked line) Extremities: Distal Pulses Palpable, Warm Neuro: Grossly Neurologically Intact Catheters: None Result Diagram: 12/20/16 0455 12/20/16 0455 Diagnostics: PROCEDURE: MRI STROKE PROTOCOL ([id number]) Pre- and post-contrast brain MRI, non-contrast brain MR angiogram, pre- and postcontrast neck MR angiogram IMPRESSION: BRAIN MRI: 1. No acute intracranial disease process. 2. No areas of acute or chronic infarction. 3. No abnormal intracranial mass. 4. No abnormal postcontrast enhancement. BRAIN MR ANGIOGRAM: 1. High grade stenosis involving the M1 segment of the left middle cerebral artery. 2. Moderate to high-grade stenosis involving the A1 segment of the left anterior cerebral artery. 3. Moderate stenosis involving the M1 segment of the right middle cerebral artery. NECK MR ANGIOGRAM: 1. The cervical segments of the internal carotid arteries are fully patent. 2. Right vertebral artery is fully patent. 3. Moderate stenosis of the origin of the left vertebral artery. The estimate of stenosis included in the report of the imaging study was calculated using the NASCET method Dictated by: Delma Guerra MD, PhD on 12/20/2016 at 9:22 PROCEDURE: CT ANGIOGRAPHY OF THE BRAIN WITH AND WITHOUT CONTRAST IMPRESSION: 1. Moderate to severe atherosclerotic stenosis involving the proximal cavernous segment of the right internal carotid artery. 2. Severe atherosclerotic stenosis of the distal M1 segment of the right middle cerebral artery. 3. Mild atherosclerotic stenosis of the M1 segment of the right middle cerebral artery. 4. No evidence of large vessel occlusion. Dictated by: Delma Guerra MD, PhD on 12/20/2016 at 8:52 Additional Information: pain to palpation of right transverse processes in area of thoracolumbar junction. No pain or instability with compression of pelvis. Assessment & Plan Impression 61 yo male with fall from ladder due to unknown cause presents with confusion, short term memory loss and fractures of his right lateral ribs, thoracic and lumbar transverse processes, and likely scapular fracture. Hospitalist was consulted who is working to control elevated blood pressure as well as completing cardiac and stroke work-up to help determine the cause of the fall. Neurology has also been consulted. Night read of MRI brain and CT angiogram show blockages of flow in the M1 segments bilaterally left worse than right. From a surgical standpoint patient is doing well. Pain is controlled with IV Dilaudid. He is tolerating clear liquids and does not have an indication for operation at this time. His chest X-ray is pending final read. O2 Saturation is greater than 92. It does not appear that his small pneumothorax has enlarged and costophrenic angle is sharp, possible parenchymal bleeding worse than prior CXR consistent with lung contusion. Problems: Plan Pain control with IV Dilaudid as well as PO Tylenol as needed. Advance diet to general as tolerated Hospitalist team consulting for hypertension and work up for medical cause of fall since reason for fall is unknown, we appreciate their recommendations. Neurology consult ordered. CXR and CBC again in AM Continue nursing neuro checks as well as monitoring of flank hematoma DVT prophylaxis: SCDs, subcutaneous heparin Case was discussed with and patient was seen and evaluated with Aspen Thompson PA-C. . Pain Management: IV dilaudid VTE Prophylaxis: Sub-Q Heparin (Unfractionated), SCDs Resuscitation Status: CPR: Attempt Resuscitation ( is his alternate decision maker) Attending Statement: I agree with Dr. Cardoso's assessment and plan. Need better BP control. Rajni Cardoso DO Dec 20, 2016 07:50 Joshua An MD Dec 25, 2016 08:03
--- NOTE | 2016-12-20 09:01 | DRSVH ---
PROCEDURE: CT ANGIOGRAPHY OF THE BRAIN WITH AND WITHOUT CONTRAST ([id number]) INDICATIONS: stroke TECHNIQUE: Precontrast 4.5 mm thick angled axial sections acquired from the foramen magnum to the vertex. Afte r the administration of intravenous contrast, 1 mm thick sections acquired through the [place] of [place] is. Postcontrast 4.5 mm thick sections then re-acquired from the foramen magnum to the vertex. 3-di mensional itgrefw-ipvzpvvlv-lrcvohcmpx (MIP) and/or volume rendering reformats were acquired of the c entral intracranial vasculature. For radiation dose reduction, the following was used: automated ex posure control, adjustment of mA and/or kV according to patient size. COMPARISON: None. FINDINGS: Image quality: Excellent. Anterior circulation: Intracranial internal carotid arteries are normal in flow. Atherosclerotic freddy cifications noted in the cavernous segments of the internal carotid arteries bilaterally. Atheroscler otic calcification causes moderate to severe stenosis of the proximal cavernous segment of the right internal carotid artery. Atherosclerotic disease causes minimal narrowing of the proximal cavernous s egment of the left internal carotid artery. The flow within the paired anterior cerebral arteries is normal and symmetric. The flow within the middle cerebral arteries is normal. Atherosclerotic plaqu e causes severe stenosis of the distal M1 segment of the left middle cerebral artery. Atherosclerotic plaque causes mild stenosis of the mid aspect of the M1 segment of the right middle cerebral artery. The anterior communicating artery is seen. The normal flow noted in the posterior tibia indicating arteries. No aneurysms are seen. Posterior circulation: Visualized portions of the vertebral arteries demonstrate normal caliber, and join to form a normal appearing basilar artery. Flow within the posterior cerebral arteries is norm al and symmetric. No aneurysms are seen. CSF spaces: Ventricles are normal in size and shape. Basal cisterns are patent. No extra-axial flu id collections. Brain: No midline shift. No intracranial bleeds or masses. Cesar-white matter interface appears int act. Skull and face: Calvarium and facial bones appear intact, without suspicious lesions. Sinuses: Mucous retention cyst noted in the right maxillary sinus. Scattered opacities noted in the d ependent portions of the right mastoid air cells. IMPRESSION: 1. Moderate to severe atherosclerotic stenosis involving the proximal cavernous segment of the right internal carotid artery. 2. Severe atherosclerotic stenosis of the distal M1 segment of the right middle cerebral artery. 3. Mild atherosclerotic stenosis of the M1 segment of the right middle cerebral artery. 4. No evidence of large vessel occlusion. Dictated by: Delma Guerra MD, PhD on 12/20/2016 at 8:52 Approved by: Delma Guerra MD, PhD on 12/20/2016 at 8:59
--- NOTE | 2016-12-20 09:47 | DRSVH ---
PROCEDURE: MRI STROKE PROTOCOL ([id number]) Pre- and post-contrast brain MRI, non-contrast brain MR angiogram, pre- and postcontrast neck MR darell ogram INDICATIONS: fall, unknown reasons, r/o stroke TECHNIQUE: Brain: Noncontrast axial T1 spin echo, axial T2 fast spin echo, sagittal and axial FLAIR, coronal T2 fast spin echo, axial gradient echo, axial diffusion and ADC through the brain. After the administr ation of contrast, axial 3D VIBE of the cranial vasculature and brain. Brain MRA: Non-contrast 3-D time of flight MR angiogram, with multiple kbhvker-frqnoknpz-pvjkztrtdv (MIP) reformats performed. Neck MRA: Axial and sagittal TruFISP through the neck. Coronal dynamic MR angiogram during administ ration of contrast in the arterial and venous phases, with 3-dimenstional iddercc-iiobjntdf-cyaivsvcm n (MIP) reformats constructed from subtraction images. COMPARISON: None. FINDINGS: Image quality: Excellent. BRAIN: CSF spaces: Ventricles are normal in size and shape. Basal cisterns are patent. No extra-axial flu id collections. Brain: No intracranial bleeds or mass effects. Cesar-white matter interface is normal. Diffusion we ighted images show no acute ischemic insults. Brainstem appears normal. Normal intravascular flow v oids are present. No abnormal intracranial enhancement. Skull and face: Calvarial marrow signal is normal. Orbits appear normal. Sinuses: Mild mucosal thickening noted in the maxillary sinuses bilaterally. Small right maxillary si nus mucus retention cyst is noted. Opacity noted in the deep portions of the right mastoid air cells. Left mastoid air cells are clear. BRAIN MR ANGIOGRAM: Anterior circulation: Intracranial internal carotid arteries are normal in enhancement. Atherosclero tic irregularity noted in the cavernous segments of the internal carotid arteries bilaterally which c auses mild to moderate stenosis. Atherosclerotic irregularity is noted in the A1 segment of the left anterior cerebral artery which causes moderate to high-grade stenosis. The right anterior cerebral ar jadon is fully patent. Atherosclerotic irregularity is noted in the M1 segments of the middle cerebral arteries bilaterally. Atherosclerotic disease causes moderate stenosis of the M1 segment of the righ t middle through artery. Atherosclerotic disease causes high grade stenosis of the distal M1 segment of the left middle cerebral artery The anterior communicating artery is seen. No occlusions, or aneu rysms. Posterior circulation: The visualized portions of the vertebral arteries demonstrate normal caliber, and join to form a normal appearing basilar artery. The flow within the posterior cerebral arteries is normal and symmetric. No stenoses, occlusions, or aneurysms. NECK MR ANGIOGRAM: Carotids: Great vessels demonstrate a conventional anatomy as they arise from the aortic arch. The origins of the common carotid arteries appear patent. The calibers and courses of both common caroti d arteries are normal. The bifurcation regions appear normal bilaterally. The internal carotid tania kelsey demonstrate normal course and caliber. Posterior circulation: The right vertebral artery is fully patent. Atherosclerotic irregularity noted in the origin left vertebral arteries causes moderate stenosis. More superior portions of both verte bral arteries demonstrate normal course and caliber, and join to form a normal appearing basilar tania ry. Miscellaneous: Subclavian arteries appear patent. Pre-contrast images through the neck show no soft tissue abnormalities. IMPRESSION: BRAIN MRI: 1. No acute intracranial disease process. 2. No areas of acute or chronic infarction. 3. No abnormal intracranial mass. 4. No abnormal postcontrast enhancement. BRAIN MR ANGIOGRAM: 1. High grade stenosis involving the M1 segment of the left middle cerebral artery. 2. Moderate to high-grade stenosis involving the A1 segment of the left anterior cerebral artery. 3. Moderate stenosis involving the M1 segment of the right middle cerebral artery. NECK MR ANGIOGRAM: 1. The cervical segments of the internal carotid arteries are fully patent. 2. Right vertebral artery is fully patent. 3. Moderate stenosis of the origin of the left vertebral artery. The estimate of stenosis included in the report of the imaging study was calculated using the NASCET method Dictated by: Delma Guerra MD, PhD on 12/20/2016 at 9:22 Approved by: Delma Guerra MD, PhD on 12/20/2016 at 9:45
--- NOTE | 2016-12-20 10:00 | NUR ---
TELE - HIGH HR Called RN around 1000 pt jumped up to 200's and sustaining. RN stated pt. getting or going to start an echo or ultra sound. HR as high as 218. RN said she would watch pt.
--- NOTE | 2016-12-20 10:17 | DRSVH ---
PROCEDURE: X-RAY CHEST ONE VIEW, PORTABLE ([id number]) INDICATIONS: f/u R rib fx andsmall PTX TECHNIQUE: One view of the chest was acquired. COMPARISON: [facility], CT, CT CHEST ABD PELVIS W CON, 12/19/2016, 15:58. [facility], CR, XR CHEST 1VW (PORTABLE), 12/19/2016, 16:10. FINDINGS: Surgical changes and devices: None. Lungs and pleura: Interval increase in bibasilar airspace opacities. No pneumothorax. Mediastinum: Mediastinal contours appear normal. Heart size is normal. Bones and chest wall: Multiple right posterior-lateral fractures better seen by CT. IMPRESSION: 1. Increasing bibasilar air space opacities consistent with worsening atelectasis versus aspiration o r pneumonia. 2. Multiple right-sided rib fractures better seen by CT. Dictated by: Emmanuel GONZALEZ Interpreted: Yasmany Kaiser MD on 12/20/2016 at 10:13 Transcribed by: BEAR on 12/20/2016 at 10:16 Approved by: Yasmany Kaiser M.D. on 12/20/2016 at 11:37
--- NOTE | 2016-12-20 10:38 | NUR ---
TELE - HIGH HR Talked with pcc/ccu scrap charger around [id number] about pt. I was advised by scrap charger to call for an EKG. During this time echo/ultra sound still going on. production maintenance technician went to perform the EKG and was asked to come 10 minutes later by pcc/ccu scrap charger for echo/ultra sound to finish. Patient's HR still in 200's.
[2016-12-20] MEDS: 0.9% Sodium Chloride 1,000 ML IV SCH ×3 (10:42→19:34)
[2016-12-20] MEDS ORDERED: MeTOProlol 1 mg/mL 5 mL Inj ONE ×2 (10:49→10:58)
--- NOTE | 2016-12-20 11:00 | NUR ---
SVT Around 1030 Echo was in pts room to begin echo when pt HR increased into the 200-220s and higher at times. MD was notified, Charge notified, PCC charge notified. EKG ordered. Pt c/o high anxiety in which increases his HR at times. Pain medication given for pain prevention 1mg Dilaudid IV with no changes. 1mg Ativan given IV with some change. Echo completed. 1L bolus given. EKG completed showing SVT. Around 11AM pt was given 5mg Metoprolol via PCC charge. Pt HR converted back to SR 80s after about 5-10minutes. Care continues
--- NOTE | 2016-12-20 11:07 | NUR ---
TELE - HIGH HR LOWERED Around 1105, after questionably 2 metoprolol pushes, pt.'s HR dropped to 70's and 80's
--- NOTE | 2016-12-20 11:10 | DRSVH ---
[facility] [address] [place] [address] Echocardiogram Report Name: SADIQ MAYERS Study Date: 12/20/2016 Height: 71 in Hospital Exam Location: [facility] Weight: 180 lb Gender: Male BSA: 2.0 m2 : 1955 Age: 61 yrs BP: 194/89 mmHg Reason For Study: FALL, R/O CARDIAC SYNCOPE Ordering Physician: HOSPITALIST SVHPerformed By: Jesus Bunch Referring Physician: GETACHEW STEWART Interpretation Summary 1. Small left ventricular cavity size with evidence for LVH (wall thickness in the range of 1.6 to 1.8 cm) with hyperdynamic systolic function. 2. Normal right ventricular size and systolic function. 3. No evidence for valvular pathology The patient was tachycardic during the exam. No old study for comparison Procedure: A two-dimensional transthoracic echocardiogram with color flow and Doppler was performed. The study quality was technically adequate. There is no prior echocardiogram noted for this patient. The heart rate ranged between 215-226 bpm during the study. Left Ventricle: The left ventricular cavity is small. There is severe concentric left ventricular hypertrophy. The ejection fraction is estimated to be >80%. No obvious wall motion abnormalities. Diastolic function could not be accurately assessed due to tachycardia. Right Ventricle: The right ventricle grossly appears normal in size with probable normal systolic function. Atria: Both atria are normal in size. There is no Doppler evidence for an atrial septal defect. Mitral Valve: The mitral valve is grossly normal. There is mild mitral regurgitation. Aortic Valve: The aortic valve is normal in structure and function. No aortic regurgitation is present. Tricuspid Valve: The tricuspid valve leaflets are thin and pliable. There is a trace or physiologic amount of tricuspid regurgitation. Pulmonary artery pressures cannot be estimated because of the lack of a measurable TR jet velocity. Pulmonic Valve: The pulmonic valve is not well visualized. Great Vessels: The aortic root is normal size. The dimensions of the ascending aorta are normal. The pulmonary artery is normal size. The IVC is of normal diameter and collapses less than 50% with a sniff. This suggests a right atrial pressure of 8 mm Hg. Pericardium/ Pleura There is no pericardial effusion. There is no pleural effusion. MMode/2D Measurements & Calculations LVIDd: 3.0 cm RA long axis LVOT diam: 2.1 cm LVIDs: 2.1 cm LA A2 area: 17.9 cm Ao root diam FS: 27.3 % LA A4 area: 19.1 cm RA area IVSd: 1.6 cm LA length (vol) asc Aorta Diam LVPWd: 1.7 cm : 15.8 cm LA vol: 53.7 ml RA vol Ao Arch Diam (Prox LA vol index : 40.9 ml Trans): 3.5 cm RA : 20.3 mm2 IVC diam: 2.6 cm LV zhang. diameter/BSA LV sys. diameter/BSA (cm/m^2): 1.5 (cm/m^2): 1.1 Doppler Measurements & Calculations Ao V2 max Ao V2 mean LV V1 max PG RAJI indexed to BSA : 140.7 cm/sec : 89.5 cm/sec (cm^2/m^2): 1.7 Ao max P.9 mmHgAo V2 VTI: 8.8 cm LV V1 VTI Ao mean PG : 8.9 cm RAJI(V,D): 2.3 cm2 LVOT Max Toby : 93.8 cm/sec RAJI(I,D): 3.5 cm sev ratio: 1.0 Reading Physician:11:09 AM
--- NOTE | 2016-12-20 12:30 | PCM.PNSURG ---
Subjective Date of Service: Dec 20, 2016 Date of Service: Dec 20, 2016 Visit Information: Reason for Visit Alt Loc,Rib Fractures,Pulmornary Contusion,Back Surgery/Surgery Date Post-Op Day # Date of Admission: Dec 19, 2016 at 17:36 Hospital Day # Subjective: Patient was seen in trauma follow-up for questionable fall with rib fractures and thoracic/lumbar transverse process fractures and postconcussive syndrome. He was seen earlier by our resident and I revisited the patient with the resident. Patient reports that he is feeling reasonably well, happy to be eating breakfast. Complains of right-sided rib pain with deep breaths and coughing. He reports that he has fractured ribs in the past and reports that this feels very similar. He does not have an incentive spirometer at the bedside yet. He does report that he is starting to remember parts of yesterday after his ?fall, that were unclear yesterday when he was first examined. He is accompanied by his Marcie who works at [facility] [facility] [employer]. He does report right side pain in ribs and back but denies any other complaints. He has no abdominal pain. He has not passed a bowel movement yet. He is due to have an echocardiogram later this morning. His pain seems to be well-controlled. He is voiding. He continues to be somewhat hypertensive but his heart rate is stable. His hematocrit went from 46.2-42.2% overnight. He has dangled his feet at the side of bed but has not stood. He is very talkative and somewhat difficult to get clear answers from him due to his jovial nature. A few hours after examining the patient, it appears that he had a sustained tachycardia and is now in the CCU being evaluated. I went to see him and he had no new complaints and reports anxiety as soon as the ultrasound probe for the echo was placed on his chest. He was treated with Ativan, metoprolol and Dilaudid and now is very comfortable, medicine is managing him and he has no new complains. EEG is about to be done. Gastrointestinal: Good Appetite, Tolerating Oral Feedings, No N/V Pain Management: Good Pain Control Neurological: Confusion (around events of yesterday) Postop Activity: Other (not OOB yet) Objective Objective Thin well-developed male sitting upright in his hospital bed, eating breakfast Vital Sign- Last 8 Hours Date Time Temp Pulse Resp B/P Pulse Ox O2 Delivery O2 Flow Rate FiO2 12/20/16 11:21 86 148/80 12/20/16 11:15 147/81 12/20/16 11:10 107/68 12/20/16 11:00 132/86 12/20/16 07:36 72 12/20/16 05:24 56 12/20/16 05:03 36.9 70 20 194/89 92 Room Air Intake and Output- Last 8 Hour 12/20/16 Cumulative From/Thru 07:00 12/19/16 15:54 - 12/20/16 06:49 Intake Total 200 ml 1200 ml Output Total 975 ml 975 ml Balance -775 ml 225 ml Intake Oral 200 ml 200 ml IV Total 1000 ml Output Urine Total 975 ml 975 ml General: Alert, Cooperative, No Acute Distress, Other (jovial and talkative and somewhat to a hindrance to history taking, amnesic to certain details around what happened yesterday, he recalls earlier events yesterday and recalls a few details from "waking up ", he does not recall the resident and met him in the ER yesterday) Neck: Supple Lungs: Normal Air Movement, Diminished (slightly on the right side, at the base ) Heart: Regular Rate/Rhythm, Murmur (systolic 2-3/6 (patient reports that he has had a murmur since childhood)) Abdomen: Benign, Soft, Non-tender, Non-distended, Normoactive bowel tones, Other (right lower posterior/lower flank hematoma/contusion, non-expanding, no fluctuance but tender with palpation) Extremities: Warm, Thigh&Calf Soft/Nontender, Other (no tenderness to pelvic compression or pelvic rock.) Neuro: Normal Speech, Normal Tone, Other (gait not tested, moving all 4 extremities equally bilaterally without obvious deficit) Catheters: None Result Diagram: 12/20/16 0455 12/20/16 0455 Additional Information: Back no spinous process tenderness to palpation, however tenderness to palpation just to the right side of spine from distal thoracic to mid lumbar area. Assessment & Plan Impression 61-year-old male with questionable fall but definitely LOC with postconcussive syndrome, stable. Continue to closely monitor. 1. Right-sided nondisplaced rib fractures 4th through 12th with adjacent pulmonary contusion, right 2. Possible right scapular fracture 3. Multiple right transverse process fractures within thoracic and lumbar spine 4. Right lower pelvic subcutaneous contusion 5. Postconcussive syndrome 6. Systolic cardiac murmur (known history per patient) Problems: (1) Pneumothorax Qualifiers: Pneumothorax type: unspecified pneumothorax Qualified Code: J93.9 - Pneumothorax, unspecified Status: Acute ICD Code: J93.9 (2) Multiple transverse process fractures Status: Acute ICD Code: 805.8 (3) Rib fracture Qualifiers: Encounter type: initial encounter Rib fracture type: multiple ribs Fracture type: closed Laterality: right Qualified Code: S22.41XA - Multiple fractures of ribs, right side, initial encounter for closed fracture Status: Acute ICD Code: S22.39XA (4) Hypertension Qualifiers: Hypertension type: unspecified secondary hypertension Qualified Code: I15.9 - Secondary hypertension, unspecified Status: Acute ICD Code: I10 (5) Traumatic brain injury Qualifiers: Encounter type: initial encounter Loss of consciousness presence/duration: without LOC Qualified Code: S06.9X0A - Unspecified intracranial injury without loss of consciousness, initial encounter Status: Acute ICD Code: S06.9X9A (6) Pulmonary contusion Qualifiers: Encounter type: initial encounter Laterality: unspecified laterality Qualified Code: S27.329A - Contusion of lung, unspecified, initial encounter Status: Acute ICD Code: S27.329A Plan Encourage incentive spirometry, stand with assistance later today and ambulate if ok with medicine team Pain control-Tylenol/Toradol are ordered at this time-he may require narcotics for rib fractures (Dilaudid ordered) Continue medicine workup for cause of LOC, echocardiogram pending for this morning and stroke protocol, EEG Repeat exams and monitoring right flank hematoma Pain Management: Tylenol/Toradol for now, he may require narcotics for rib fractures VTE Prophylaxis: Sub-Q Heparin (Unfractionated), SCDs Resuscitation Status: CPR: Attempt Resuscitation ( is his alternate decision maker) Aspen Thompson PAC Dec 20, 2016 12:30
--- NOTE | 2016-12-20 12:30 | NUR ---
Transfer to [facility] Pt transferred to [facility] Room 2026 Report given to Receiving nurse. Pt very anxious at times, Denies CP, SOB, Nausea, Pain at this time. Transferred via bed on Tele. SR 80s at times of transfer.
[2016-12-20] MEDS ORDERED: LORazepam 0.5 mg Tablet PO PRN (12:40)
--- NOTE | 2016-12-20 17:27 | NUR ---
Social Work: Screen D: Per EMR review, pt is a 61 year old male admitted for ALT LOC, Rib Fractures, Pulmonary Contusion. [facility] [employer] [facility]. Pt does not have a PCP. NOK is pt's iwfe, Britney Stanton. Pt does not have completed AD. Readmit score is low, 07/28. Pt transferred to [facility] from [facility]. Pt lives on [address] with his . 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 On day of admit, pt experienced a high fall from a ladder. Neuro consult is pending along with consults from surgery as well. A: Pt who is I at baseline and lives at home with his . P: Anticipate pt to likely discharge home with no social work needs; SET DECORATOR will continue to follow pt's clinical progress and assess for discharge needs. URMILA Cardenas
--- NOTE | 2016-12-20 17:48 | NUR ---
Transfer to [facility] Patient arrived in [facility] after 1200 today. Patient was oriented X3 but remained forgetful at times. Patient stated that his pain was resolved and was satisfied with the level of comfort. Herat rate was in mid-70 with occasional to frequent PAC, BP was stable at the time. On room air oxygen saturation was 95-97%. Patient was having shallow breaths with decreased lung sound at bilateral basis 1/3 up. IS instructions were given to the patient and patient was instructed on how to use it. Patient was able to pull up to 1750 ml only. Patient was encouraged to take deep breaths 2-3 times every hour for 4-6 breaths- Family members present in the room were encouraged the patient to comply.
--- NOTE | 2016-12-20 19:25 | NUR ---
Anticoagulation/ hypertension/pain/anxiety Attending MD Dr. Leija added Plavix and 81mg aspirin this evening. Patient has been receiving scheduled heparin 5000units SUBQ Q8h. clarified order with pharmacist and MD- continue medication regiment as ordered. Patient became hypertensive this evening with SBP 180-190s and MAP >110. Attending MD Dr. Pedroza was made aware- patient was given a dose of labetalol 10mg IV x1 with BP decreasing to 153/76 within 5min of administration. Patient remain stable with HR 7-80 and denied having any dizziness or unusual symptoms- report was given to the receiving [facility] shift lead RN. Pain and anxiety well controlled with PRN doses of Dilaudid IV, Toradol IV and Ativan PO- see e-MAR for administration times and doses.
--- NOTE | 2016-12-20 23:18 | PCM.PNMED ---
Subjective Date of Service Dec 20, 2016 Subjective Patient is seen and examined by an photovoltaic fabrication technician/telemonitoring paged me in the a.m. at about 10 AM. Patient appeared to be very anxious, and said that he could feel his heart rate speeding up. He denied dyspnea, and stated that his pain is well under control. Per his who spent the night in the room, he has not had much by mouth intake. Exam Vital Signs Vital Sign - Last Date Time Temp Pulse Resp B/P Pulse Ox O2 Delivery O2 Flow Rate FiO2 12/20/16 11:21 86 148/80 12/20/16 05:03 36.9 20 92 Room Air Intake and Output 12/19/16 12/19/16 12/20/16 Cumulative From/Thru 15:00 23:00 07:00 12/19/16 15:54 - 12/20/16 06:49 Intake Total 1000 ml 200 ml 1200 ml Output Total 975 ml 975 ml Balance 1000 ml -775 ml 225 ml Intake Oral 200 ml 200 ml IV Total 1000 ml 1000 ml Output Urine Total 975 ml 975 ml Exam Gen.: Appears very anxious HEENT: Normocephalic, poor dentition Heart:: Regular rhythm, tachycardic, hyperdynamic Lungs: Clear to auscultation, anteriorly (patient is receiving a ultrasound of the heart) Abdomen: Nontender, nondistended Extremities: Negative for edema Vasculature: 2 out of 4 radial pulse Neuro: Improved cognition from yesterday, still experiencing some memory lapses Psych: Negative for agitation, very anxious appearing IVs and Medications IV Fluids 100 cc/hr NSS Medications Reviewed: Medications were reviewed in detail Lab and Diagnostics Result Diagram: 12/20/16 0455 12/20/16 0455 X-Rays, CTs and MRIs PROCEDURE: X-RAY RIGHT ELBOW COMPLETE, MINIMUM THREE VIEWS ([id number]) INDICATIONS: 61 year-old male with right elbow pain after fall from ladder. IMPRESSION: No acute bony injury to the right elbow. Dictated by: Alex Ren M.D. on 12/19/2016 at 17:46 Approved by: Alex Ren M.D. on 12/19/2016 at 17:47 PROCEDURE: CT CERVICAL SPINE WITHOUT CONTRAST ([id number]) IMPRESSION: 1. No acute bony injury to the cervical and upper thoracic spine from the foramen magnum to the T4 level. 2. Tiny right apical pneumothorax, secondary to previously noted multiple right rib fractures. Dictated by: Alex Ren M.D. on 12/19/2016 at 16:59 Approved by: Alex Ren M.D. on 12/19/2016 at 17:05 PROCEDURE: CT BRAIN WITHOUT CONTRAST ([id number]) CT head without INDICATIONS: fall off ladder, acute confusion IMPRESSION: No acute process. Dictated by: Guanako Ruiz M.D. on 12/19/2016 at 16:09 Approved by: Guanako Ruiz M.D. on 12/19/2016 at 16:09 PROCEDURE: X-RAY CHEST ONE VIEW, PORTABLE ([id number]) INDICATIONS: right sided chest pain IMPRESSION: Right-sided pulmonary opacity and multiple rib fractures, better visualized on CT chest dated 12/19/06. In addition, CT chest also demonstrated likely small pneumothorax versus bronchus injury. Dictated by: Sujatha Lipscomb M.D. on 12/19/2016 at 15:34 Approved by: Sujatha Lipscomb M.D. on 12/19/2016 at 15:36 PROCEDURE: CT CHEST, ABDOMEN AND PELVIS WITH CONTRAST ([id number]) INDICATIONS: right sided chest, abd, back pain IMPRESSION: 1. Nondisplaced right lateral rib 4th through 12th rib fractures. 2. Mild widened appearance of right major fissure. Given adjacent rib fractures and areas of pleural effusion and pulmonary opacity likely contusion/ hemothorax, appearance is most suggestive of small pneumothorax along the fissure line. A ruptured bronchus cannot be definitely excluded. 3. Nondisplaced lucency most suggestive of right scapular fracture. 4. Multiple right transverse fractures within the thoracic and lumbar spine as above. 5. Right lower pelvic subcutaneous fat contusion. 6. Sub-centimeter low attenuation hepatic foci, too small to definitively characterize. Dictated by: Sujatha Lipscomb M.D. on 12/19/2016 at 15:11 Approved by: Sujatha Lipscomb M.D. on 12/19/2016 at 15:34 PROCEDURE: MRI STROKE PROTOCOL ([id number]) Pre- and post-contrast brain MRI, non-contrast brain MR angiogram, pre- and postcontrast neck MR angiogram INDICATIONS: fall, unknown reasons, r/o stroke IMPRESSION: BRAIN MRI: 1. No acute intracranial disease process. 2. No areas of acute or chronic infarction. 3. No abnormal intracranial mass. 4. No abnormal postcontrast enhancement. BRAIN MR ANGIOGRAM: 1. High grade stenosis involving the M1 segment of the left middle cerebral artery. 2. Moderate to high-grade stenosis involving the A1 segment of the left anterior cerebral artery. 3. Moderate stenosis involving the M1 segment of the right middle cerebral artery. NECK MR ANGIOGRAM: 1. The cervical segments of the internal carotid arteries are fully patent. 2. Right vertebral artery is fully patent. 3. Moderate stenosis of the origin of the left vertebral artery. The estimate of stenosis included in the report of the imaging study was calculated using the NASCET method Dictated by: Delma Guerra MD, PhD on 12/20/2016 at 9:22 Approved by: Delma Guerra MD, PhD on 12/20/2016 at 9:45 PROCEDURE: CT ANGIOGRAPHY OF THE BRAIN WITH AND WITHOUT CONTRAST ([id number]) INDICATIONS: stroke IMPRESSION: 1. Moderate to severe atherosclerotic stenosis involving the proximal cavernous segment of the right internal carotid artery. 2. Severe atherosclerotic stenosis of the distal M1 segment of the right middle cerebral artery. 3. Mild atherosclerotic stenosis of the M1 segment of the right middle cerebral artery. 4. No evidence of large vessel occlusion. 12-lead ECG Nonspecific ST changes Cardiac Echo Impressions Echocardiogram Report from 12/20 Interpretation Summary 1. Small left ventricular cavity size with evidence for LVH (wall thickness in the range of 1.6 to 1.8 cm) with hyperdynamic systolic function. 2. Normal right ventricular size and systolic function. 3. No evidence for valvular pathology The patient was tachycardic during the exam. No old study for comparison Assessment & Plan #Acute Sinus tachycardia on the 12/20 AM: secndary to dehydration, severe anxiety -- This is noted by the [facility] tech and I was paged to the room. Gave patient bolus fluids, and milligram of IV Ativan , waited for some improvement and then administered 5 mg of IV metoprolol. Patient stated was quickly brought under control with these measures. Increased maintenance 150 mL/h, later in the evening dropped to 1 25 mL/h NSS # Fall secondary to dizziness secondary to cerebrovascular stenosis and poor vascular perfusion, POA -- ACS was ruled out -- Ultrasound of the heart is done: "Small left ventricular cavity size with evidence for LVH (wall thickness in the range of 1.6 to 1.8 cm) with hyperdynamic systolic function", discussed findings with a case technician Dr. Wynne. The Andres that patient is severely dehydrated, bolus fluids were given, IV fluid maintenance status changed 150 mL/ h. -- Patient is requiring IV Dilaudid for pain control -- Neurological checks every 4 hours -- CT angiogram revealed "1. Moderate to severe atherosclerotic stenosis involving the proximal cavernous segment of the right internal carotid artery. 2. Severe atherosclerotic stenosis of the distal M1 segment of the right middle cerebral artery. 3. Mild atherosclerotic stenosis of the M1 segment of the right middle cerebral artery." MR angiogram revealed "1. High grade stenosis involving the M1 segment of the left middle cerebral artery. 2. Moderate to high-grade stenosis involving the A1 segment of the left anterior cerebral artery. 3. Moderate stenosis involving the M1 segment of the right middle cerebral artery." -- Dr. Chaudhry was notified this a.m. of these findings, I have discussed the case with Dr. sinclair him again around [address] sinclair says that he actually called [facility] regarding these findings, but [facility] is not recommending any emergent procedures. Dr. sinclair recommends that we keep patient's SBP around 130. He does not want to help perfuse patient. He would like to see the patient for a close f/u in his office/clinic and will order a f/ u CTA. -- Currently patient is getting by mouth lisinopril 20 mg daily, he is requiring IV labetalol in the evening. When necessary enalapril was ordered for overnight coverage. -- Will order metoprolol twice a day 25 mg starting 6/3 AM. to better control blood pressures, now that stroke is ruled out. -- Carotid ultrasound scan: Result is still pending ( we already have the results from CTA and MRA neck) # Postconcussive syndrome, POA -- Patient's family is advised to keep keep the room quiet, dark turn the TV off and limited number of visitors to avoid excessive stimulation -- Neurology is contacted. -- Dr. Chaudhry is following the patient # Anxiety disorder, POA -- One-time dose of by mouth Ativan 0.5 mg is given, this may help with the hypertension also with MRI procedure 12/19 -- Patient required 1 mg of IV Ativan at the time of ultrasound and echo as he got very anxious. -- Ativan by mouth 0.5 mg twice a day was ordered when necessary # Hypertensive urgency, POA: Patient continued to have systolic blood pressure in 200s and diastolic around 100 upon arriving to the floor. He was given lisinopril 20 mg in the ER. -- He was given one-time dose of labetalol 20 mg IV upon arrival to floor on 12/19 10 mg IV labetalol on the evneing on 12/20 -- Enalapril 0.625 every 6 hours when necessary is ordered with parameters, staff are asked to notify the M.D. if these are used -- Will start patient on metoprolol 25 mg PO BID on 63 AM # Small pneumothorax as evidenced by the CT scan of chest, POA: repeat CXR showed no pneumothorax, resolved -- Dr. An is the primary team with medicine consulting, he confirmed this to me on 12/20 AM Assessment #5 multiple rib fractures, thoracolumbar fractures, scapular fracture on the right side, ongoing -- Pain control with Dilaudid IV -- Dr. An, primary team is managing -- Continue to monitor Disposition: Patient was initially admitted to see as an observation patient, due to severe tachycardia on 12/20 (which was quickly brought under control while patient was still on OSC), severe stenosis findings on CT of brain and MRA of brain, a decision was made to move patient to [facility] and second floor on the 12/20. Dr. Chaudhry will continue to follow the patient, further management per Pain Evaluation: Adequate Pain Control VTE Prophylaxis: Sub-Q Heparin (Unfractionated), SCDs Resuscitation Status: CPR: Attempt Resuscitation ( is his alternate decision maker) Time spent 40 min Natalie Pedroza DO Dec 20, 2016 11:43
[2016-12-21] VITALS (13 sets, daily range): BP systolic 161–213; BP diastolic 71–109; PULSE 60–81; RESP 12–25; O2SAT 94–100
--- NOTE | 2016-12-21 00:03 | CONS ---
[address] [address] CONSULTATION REPORT PATIENT: SADIQ MAYERS : 1955 MR#: [id number] ADMIT: 12/19/2016 JOB ID: [id number] NEUROLOGY CONSULTATION: DATE OF SERVICE: 12/20/2016 REQUESTING PROVIDER: Natalie Pedroza D.O. CHIEF COMPLAINT: Fall with change in mental status. HISTORY OF PRESENTING ILLNESS: The patient is a pleasant 61-year-old, right-handed man with a past medical history of hypertension and hyperlipidemia who fell approximately six feet off a ladder with no clear trigger. Following this, he was noted to be confused with lower back pain, right-sided chest pain and abdominal pain. He did not note any headaches or neck pain. He could not recall any particular triggers for this event. He reports no history of falls. Both his and daughter do note that over the past 24 hours there has been significant improvement in his mental status. He reports that he feels almost back to baseline. His daughter was quite concerned about the possibility of a transient ischemic attack or stroke. He reports that in the past he did see a primary care provider and he reports his blood pressure fluctuated quite significantly and he also developed white coat hypertension. He reports that he was tried on metoprolol hydrochlorothiazide and lisinopril. He reports that he stopped these medications and has not seen a physician in quite some time. He also reports that he was diagnosed with hyperlipidemia in the past however is not on a statin. He reports no history of any neurologic disorders and otherwise reports that he is healthy. 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 He reports that he has had hypertension all his life. PAST MEDICAL HISTORY: As above noted hypertension, hyperlipidemia. PAST SURGICAL HISTORY: None. SMOKING HISTORY: He quit 30 years ago. SOCIAL HISTORY: Occasional alcohol use. No drugs. Good social support. Lives with his . He is . He has children. One of his daughters works here at [facility]. REVIEW OF SYSTEMS: A complete review of systems was performed and was remarkable for above noted. ALLERGIES: No known drug allergies. MEDICATIONS: None. LABORATORY STUDIES: WBC 11.7, today 10.9, hemoglobin 15.2, hematocrit 46.2, platelets of 227. Chemistries: Sodium 141, potassium 4.4, chloride 101, bicarb 24, BUN was 12. Creatinine was 0.77. Glucose 123. LFTs were within normal limits. Troponins were all negative. Coag panel PT 11.0, INR 1.03. PTT 22.9. Tox screen alcohol less than 10. Urinalysis was unremarkable moderate occult blood, few bacteria otherwise unremarkable. IMAGING STUDIES: I reviewed his magnetic resonance angiogram of the brain and magnetic resonance imaging study of the brain as well as a CT angiogram of the brain and neck in detail with Dr. Hurtado. He did have a CT of the chest, abdomen and pelvis demonstrate nondisplaced right lateral 4-12th rib fractures. Mild widening appearance of the right major fissure. Given adjacent rib fractures and areas of pleural effusion and pulmonary opacity likely contusions/hemothorax, appearance is most suggestive of a small pneumothorax along the fissure line. A ruptured bronchus cannot be definitively excluded. Nondisplaced lucency most suggestive of a right scapular fracture. Multiple right transverse fractures within the thoracic to lumbar spine. Right lower pelvic subcutaneous fat contusion. Sub cm low-attenuation hepatic foci too small to definitively characterize. Chest x-ray was performed demonstrating a right-sided pulmonary opacity and multiple rib fractures better visualized on the CT of the chest. CT of head was performed demonstrating no acute process. There were periventricular deep white matter chronic small vessel ischemic changes noted. There was also intracranial internal carotid artery atherosclerosis noted. CT of the cervical spine was performed demonstrating no acute bony injury to the cervical and upper thoracic spine from the foramen magnum to the T4 level. Tiny right apical pneumothorax secondary to previously noted multiple right rib fractures. Elbow x-ray was performed. No acute bony injury to the right elbow and the magnetic resonance imaging study of the brain demonstrated no acute intracranial disease process. No areas of acute or chronic infarction. No abnormal intracranial mass. No abnormal postcontrast enhancement. High-grade stenosis involving the M1 segment of the left middle cerebral artery. Moderate to high-grade stenosis involving the A1 segment of the left anterior cerebral artery. Moderate stenosis involving the M1 segment of the right middle cerebral artery. The cervical segments of the internal carotid arteries are fully patent. Right vertebral artery is fully patent. Moderate stenosis of the origin of the left vertebral artery. CTA demonstrated moderate to severe atherosclerotic stenosis involving the proximal cavernous segment of the right internal carotid artery. Severe atherosclerotic stenosis of the distal M1 segment of the right middle cerebral artery. Mild atherosclerotic stenosis of the M1 segment of the right middle cerebral artery. No evidence of large vessel occlusion. Chest x-ray demonstrated increasing bibasilar airspace opacities consistent with worsening atelectasis versus aspiration or pneumonia. Multiple right-sided rib fractures are seen on CT. This was performed on December 20, 2016. Carotid duplex is presently pending. PHYSICAL EXAMINATION: Vital signs: Temperature 36.7, pulse of 73, respiratory rate of 18, blood pressure 118/63. Pulse oximetry 95. General: He is a well-developed, well-nourished man in no acute distress. Head: Normocephalic, atraumatic. Neck is supple. No carotid bruits were noted bilaterally. Negative Kernig. Negative Brudzinski. Chest: Clear to auscultation. No crackles, rhonchi or wheezes noted. Heart: Regular rate and rhythm. Abdomen: Soft, nondistended, nontender. Extremities: No cyanosis, clubbing, or edema were noted. NEUROLOGIC EXAMINATION: Mental status: He is awake, alert, oriented x3. He stated that it was 2010. However, when I corrected him, he did agree that it was 2016 and he stated the month correctly as December. He recognized all family members in the room. He was able to spell world backwards and forwards with no hesitation. There was no aphasia noted. Cranial nerves: Pupils equal, round, reactive to light. Extraocular movements were smooth and conjugate with no evidence of nystagmus. Face appeared symmetrical. Facial sensation was intact to light touch and temperature. Auditory sensation was intact to finger rub. Palatal elevation was symmetrical. Tongue was midline. Sternocleidomastoid and trapezii are 5/5 bilaterally. Motor: Normal tone and bulk. Muscle strength 5/5 throughout. Examination was limited due to pain associated with rib fractures. However, muscle strength was noted to be 5/5 with normal tone and bulk throughout. Sensation: Intact light touch and temperature. Coordination: Vvmkny-ni-cuny was intact with no evidence of dysmetria. Deep tendon reflexes symmetrical. Plantars were equivocal bilaterally. Gait was deferred. IMPRESSION: I reviewed in detail magnetic resonance imaging studies and computed tomography angiogram studies in detail with Dr. Hurtado of Neuroradiology as well as a [place] neurologist who I spoke with through the [employer] service. I reviewed in detail the case with Dr. Hurtado as well as the neurologist life skills consultant for [place]. RECOMMENDATIONS: 1. Aspirin 81 mg and Plavix 75 mg for three months. 2. Repeat the computed tomography angiogram of the head and neck in three months. 3. Follow up in the Neurology Clinic in three months. 4. Establish with a primary care provider and possibly even a hypertension specialist/food production supervisor. 5. Recommend systolic blood pressures between 130-140. 6. Addition of a statin. 7. Obtaining a lipid risk profile in the morning. 8. Recommend optimization of control of risk factors including hypertension and hyperlipidemia. 9. He does not have any history of smoking. 10. NIH stroke scale is zero. Initially his NIH stroke scale was 2 for aphasia. I do recommend he follow up in the Neurology Clinic, definitely in three months after repeat computed tomography angiogram of the head and neck is performed. If it is noted that there is stabilization or improvement in his degree of intracranial stenosis, consider continuing aspirin 81 mg daily alone and stopping Plavix. If there is progression or worsening of his intracranial stenosis, he may benefit from a referral to [facility] for further evaluation and treatment, that is following the computed tomography angiogram in three months. Thank you, again, Dr. Pedroza, for allowing me to participate in the care of your patient. Please feel free to contact me with any questions or concerns. I do recommend obtaining an electroencephalogram which is presently on going to exclude the possibility of an ictal etiology. However, in general, it is my suspicion that this episode was likely secondary to symptomatic hypotension resulting in inadequate cerebral perfusion likely to the M1 segments resulting in loss of consciousness. He was also noted to have an episode of SVT. This may be seen as well in the setting of transient ischemic attack type symptoms following the triggered by a cerebral hypoperfusion. According to his daughter he did not actually hit his head when he fell. Most commonly supraventricular tachycardia has been described following right hemispheric strokes. However, it has also been seen following a transient ischemic attack. Thank you again.
[2016-12-21] MEDS: Heparin 5,000 Unit/mL Inj SUBQ SCH ×3 (00:17→17:24)
[2016-12-21] MEDS ORDERED: Labetalol 5 mg/mL 20 mL Inj IV ONE (00:30)
[2016-12-21] MEDS: HYDROmorphone 1 mg/mL Inj IVPUSH PRN ×2 (00:35→03:39)
[2016-12-21] MEDS: 0.9% Sodium Chloride 1,000 ML IV SCH ×3 (02:57→19:31)
[2016-12-21 04:09] LABS: BASOPHILS % (AUTO) 0.2 % (0-3); EOSINOPHILS % (AUTO) 0.7 % (0-5); MONOCYTES % (AUTO) 11.3 % (4-12); Mean Corpuscular Volume 87.2 fL (81-100); NEUTROPHILS % (AUTO) 74.9 % (40-74); Platelet Count 167 bil/L (150-400)
--- NOTE | 2016-12-21 06:45 | NUR ---
Hypertension/Rib pain Patient continues to have systolic blood pressures that are consistently in the 180s. Occasional pressures in the 190s. IVP labetalol given as well as IVP enalaprilat with improvement tot he 150-160s before the SBP began to climb again. Patient in sinus rhythm, single 5 beat run of v-tach overnight. Patient denies chest pain; rib pain up to 6/10 on the right side with movement. PRN hydromorphone and toradol given with good effect.
--- NOTE | 2016-12-21 07:08 | PCM.PNSURG ---
Subjective Visit Information: Reason for Visit Alt Loc,Rib Fractures,Pulmornary Contusion,Back Surgery/Surgery Date Post-Op Day # Date of Admission: Dec 19, 2016 at 17:36 Hospital Day # Subjective: transferred to 2nd floor yesterday due to tachycardia, SBP this morning over 200 , mentation better this am, oriented to year and place, some memory of his fall is coming back, pt was seen by Neurology yesterday Objective Objective Awake in bed Conversant, oriented to place and year, moves all 4, follow commands Able to move R shoulder and R elbow Abd: soft, nontender, R flank ecchymosis/hematoma Vital Sign- Last 8 Hours Date Time Temp Pulse Resp B/P Pulse Ox O2 Delivery O2 Flow Rate FiO2 12/21/16 06:41 74 21 197/92 96 Room Air 12/21/16 06:00 12 213/78 98 Room Air 12/21/16 05:26 72 12/21/16 05:15 77 25 180/81 94 Room Air 12/21/16 02:55 60 14 161/71 95 Room Air 12/21/16 00:13 37.7 81 20 188/78 96 Room Air Intake and Output- Last 8 Hour 12/21/16 Cumulative From/Thru 07:00 12/19/16 15:54 - 12/21/16 06:34 Intake Total 2009 ml 5754 ml Output Total 2335 ml 5735 ml Balance -326 ml 19 ml Intake Oral 625 ml 1775 ml IV Total 1384 ml 3979 ml Output Urine Total 2335 ml 5735 ml # Voids 3 Result Diagram: 12/21/16 0349 12/20/16 0455 Assessment & Plan Impression s/p fall with R rib fx's, T-L spine TP fx's, possible R scapula fx, R small PTX seen on CT Hypertension Problems: (1) Pneumothorax Qualifiers: Pneumothorax type: unspecified pneumothorax Qualified Code: J93.9 - Pneumothorax, unspecified Status: Acute ICD Code: J93.9 (2) Multiple transverse process fractures Status: Acute ICD Code: 805.8 (3) Rib fracture Qualifiers: Encounter type: initial encounter Rib fracture type: multiple ribs Fracture type: closed Laterality: right Qualified Code: S22.41XA - Multiple fractures of ribs, right side, initial encounter for closed fracture Status: Acute ICD Code: S22.39XA (4) Hypertension Qualifiers: Hypertension type: unspecified secondary hypertension Qualified Code: I15.9 - Secondary hypertension, unspecified Status: Acute ICD Code: I10 (5) Traumatic brain injury Qualifiers: Encounter type: initial encounter Loss of consciousness presence/duration: without LOC Qualified Code: S06.9X0A - Unspecified intracranial injury without loss of consciousness, initial encounter Status: Acute ICD Code: S06.9X9A (6) Pulmonary contusion Qualifiers: Encounter type: initial encounter Laterality: unspecified laterality Qualified Code: S27.329A - Contusion of lung, unspecified, initial encounter Status: Acute ICD Code: S27.329A Plan Will add po pain meds for pain control Need to get better control of his BP (per hospitalist team) Neurology recommended baby ASA and plavix for 3 months F/U CXR today F/U carotid doppler study VTE Prophylaxis: Sub-Q Heparin (Unfractionated), SCDs Resuscitation Status: CPR: Attempt Resuscitation ( is his alternate decision maker) Joshua An MD Dec 21, 2016 07:08
--- NOTE | 2016-12-21 07:52 | PROCED ---
[address] [address] EEG PATIENT: SADIQ MAYERS : 1955 MR#: [id number] ADMIT: 12/19/2016 JOB ID: [id number] DATE: 12/20/2016 HISTORY: The patient is a 61-year-old man with an episode of loss of consciousness. TECHNICAL DESCRIPTION: This digital EEG was performed using 25 scalp and ear, and two EKG electrodes. It was reviewed in bipolar and referential montages following reformatting of the 10-20 International Electrode Placement System. During the recording, the patient was noted to be awake, drowsy and asleep. The background was composed of a 9 hertz, 20-50 microvolt, symmetrical and reactive posterior dominant rhythm that attenuated with eye opening. The rest of the background was composed of low voltage faster frequencies. There were no focal, lateralized or epileptiform discharges noted. There were no seizures seen. Photic stimulation from 1-30 hertz did not elicit any photic driving response. Hyperventilation was deferred due to intracranial stenosis. Sleep was characterized by the attenuation of the alpha rhythm, the appearance of symmetrical vertex waves, heralding stage 1 of sleep. This is followed by the development of symmetrical sleep spindles and K complexes heralding stage 2 of sleep. There was abundant snoring and associated artifact during sleep noted. The EKG rhythm strip revealed a heart rate of 60-120 beats per minute consistent with intermittent supraventricular tachycardia. IMPRESSION: This electroencephalogram performed in the awake, drowsy and asleep states is within normal limits. 1. Given the prominent snoring, obstructive sleep apnea cannot be excluded. I recommend evaluation for this condition if clinically indicated. 2. The EKG rhythm strip was remarkable for intermittent supraventricular tachycardia. However it should be noted that the EKG study is limited as this is a single lead EKG. If clinically indicated, I do recommend obtaining a 12 lead electrocardiogram, and especially given the abnormalities appreciated on this single lead EKG, I do recommend obtaining a 12 lead electrocardiogram if this has not already been performed and this condition is noted to be new. Clinical correlation is advised.
--- NOTE | 2016-12-21 08:00 | NUR ---
HTN/Pain Pt continues to have high blood pressure. Dr Juve ramirez. Ordered oxycodone PO for pain. BP 220/82. Care continues.
[2016-12-21] MEDS: oxyCODONE-Acetamin 5-325 mg Tablet PO PRN ×4 (08:23→23:35)
--- NOTE | 2016-12-21 10:29 | DRSVH ---
PROCEDURE: X-RAY CHEST, TWO VIEWS ([id number]) INDICATIONS: Monitoring of trauma to R torso TECHNIQUE: 2 views of the chest were acquired. COMPARISON: [facility], CR, XR CHEST 1VW (PORTABLE), 12/19/2016, 16:10. [facility], CR, XR CHEST 1VW (PORTABLE), 12/20/2016, 5:43. FINDINGS: Surgical changes and devices: None. Lungs and pleura: Trace right-sided pleural effusion noted. Basilar opacities have decreased in siz e, but not completely resolved. Mediastinum: Mediastinal contours are normal. Heart size is normal. Bones and chest wall: Nondisplaced right seventh and eighth rib fractures are visualized. Soft tiss ues appear unremarkable. IMPRESSION: 1. Bibasilar opacities decreased in size without complete resolution. 2. No pneumothorax identified in the current study. Dictated by: Delma Guerra MD, PhD on 12/21/2016 at 10:24 Approved by: Delma Guerra MD, PhD on 12/21/2016 at 10:28
--- NOTE | 2016-12-21 13:37 | NUR ---
Ambulation Pt wanting to ambulate around unit with . notified. approved of ambulation. Pt transitioned to tele box. Ambulating around unit several times. Steady on feet, tolerated well. Care continues.
--- NOTE | 2016-12-21 15:35 | PCM.PNMED ---
Subjective Date of Service Dec 21, 2016 Subjective Follow for multiple rib fracture. uncontrolled hypertension, brain concussion Patient seen and examined at bedside . He is still in pain. No SOB Exam Vital Signs Vital Sign - Last Date Time Temp Pulse Resp B/P Pulse Ox O2 Delivery O2 Flow Rate FiO2 12/21/16 13:47 70 18 213/109 100 Room Air 12/21/16 11:39 36.5 Intake and Output 12/20/16 12/20/16 12/21/16 Cumulative From/Thru 15:00 23:00 07:00 12/19/16 15:54 - 12/21/16 06:34 Intake Total 610 ml 1935 ml 2009 ml 5754 ml Output Total 2425 ml 2335 ml 5735 ml Balance 610 ml -490 ml -326 ml 19 ml Intake Oral 950 ml 625 ml 1775 ml IV Total 610 ml 985 ml 1384 ml 3979 ml Output Urine Total 2425 ml 2335 ml 5735 ml # Voids 3 3 Exam Gen : In bed comfortably. NAD. Anxious HEENT : Sclerae is anicteric Chest : No deformity. Normal respiratory effort Neck: No stridor, no JVD, trachea is midline Lungs: no crackles. No wheezing Heart: S1, S2 regular, no gallop, no murmur Abdomen: Benign. Bowel sounds normal quadrant Extremity: No edema, no calf tenderness, no cyanosis Skin: No rash, no ulcers Neuro : Grossly non focal. Very anxious IVs and Medications Medications Reviewed: Medications were reviewed in detail Lab and Diagnostics Result Diagram: 12/21/16 0349 12/20/16 0455 X-Rays, CTs and MRIs PROCEDURE: X-RAY RIGHT ELBOW COMPLETE, MINIMUM THREE VIEWS ([id number]) INDICATIONS: 61 year-old male with right elbow pain after fall from ladder. IMPRESSION: No acute bony injury to the right elbow. Dictated by: Alex Ren M.D. on 12/19/2016 at 17:46 Approved by: Alex Ren M.D. on 12/19/2016 at 17:47 PROCEDURE: CT CERVICAL SPINE WITHOUT CONTRAST ([id number]) IMPRESSION: 1. No acute bony injury to the cervical and upper thoracic spine from the foramen magnum to the T4 level. 2. Tiny right apical pneumothorax, secondary to previously noted multiple right rib fractures. Dictated by: Alex Ren M.D. on 12/19/2016 at 16:59 Approved by: Alex Ren M.D. on 12/19/2016 at 17:05 PROCEDURE: CT BRAIN WITHOUT CONTRAST ([id number]) CT head without INDICATIONS: fall off ladder, acute confusion IMPRESSION: No acute process. Dictated by: Guanako Ruiz M.D. on 12/19/2016 at 16:09 Approved by: Guanako Ruiz M.D. on 12/19/2016 at 16:09 PROCEDURE: X-RAY CHEST ONE VIEW, PORTABLE ([id number]) INDICATIONS: right sided chest pain IMPRESSION: Right-sided pulmonary opacity and multiple rib fractures, better visualized on CT chest dated 12/19/06. In addition, CT chest also demonstrated likely small pneumothorax versus bronchus injury. Dictated by: Sujatha Lipscomb M.D. on 12/19/2016 at 15:34 Approved by: Sujatha Lipscomb M.D. on 12/19/2016 at 15:36 PROCEDURE: CT CHEST, ABDOMEN AND PELVIS WITH CONTRAST ([id number]) INDICATIONS: right sided chest, abd, back pain IMPRESSION: 1. Nondisplaced right lateral rib 4th through 12th rib fractures. 2. Mild widened appearance of right major fissure. Given adjacent rib fractures and areas of pleural effusion and pulmonary opacity likely contusion/ hemothorax, appearance is most suggestive of small pneumothorax along the fissure line. A ruptured bronchus cannot be definitely excluded. 3. Nondisplaced lucency most suggestive of right scapular fracture. 4. Multiple right transverse fractures within the thoracic and lumbar spine as above. 5. Right lower pelvic subcutaneous fat contusion. 6. Sub-centimeter low attenuation hepatic foci, too small to definitively characterize. Dictated by: Sujatha Lipscomb M.D. on 12/19/2016 at 15:11 Approved by: Sujatha Lipscomb M.D. on 12/19/2016 at 15:34 PROCEDURE: MRI STROKE PROTOCOL ([id number]) Pre- and post-contrast brain MRI, non-contrast brain MR angiogram, pre- and postcontrast neck MR angiogram INDICATIONS: fall, unknown reasons, r/o stroke IMPRESSION: BRAIN MRI: 1. No acute intracranial disease process. 2. No areas of acute or chronic infarction. 3. No abnormal intracranial mass. 4. No abnormal postcontrast enhancement. BRAIN MR ANGIOGRAM: 1. High grade stenosis involving the M1 segment of the left middle cerebral artery. 2. Moderate to high-grade stenosis involving the A1 segment of the left anterior cerebral artery. 3. Moderate stenosis involving the M1 segment of the right middle cerebral artery. NECK MR ANGIOGRAM: 1. The cervical segments of the internal carotid arteries are fully patent. 2. Right vertebral artery is fully patent. 3. Moderate stenosis of the origin of the left vertebral artery. The estimate of stenosis included in the report of the imaging study was calculated using the NASCET method Dictated by: Delma Guerra MD, PhD on 12/20/2016 at 9:22 Approved by: Delma Guerra MD, PhD on 12/20/2016 at 9:45 PROCEDURE: CT ANGIOGRAPHY OF THE BRAIN WITH AND WITHOUT CONTRAST ([id number]) INDICATIONS: stroke IMPRESSION: 1. Moderate to severe atherosclerotic stenosis involving the proximal cavernous segment of the right internal carotid artery. 2. Severe atherosclerotic stenosis of the distal M1 segment of the right middle cerebral artery. 3. Mild atherosclerotic stenosis of the M1 segment of the right middle cerebral artery. 4. No evidence of large vessel occlusion. 12-lead ECG Nonspecific ST changes Cardiac Echo Impressions Echocardiogram Report from 12/20 Interpretation Summary 1. Small left ventricular cavity size with evidence for LVH (wall thickness in the range of 1.6 to 1.8 cm) with hyperdynamic systolic function. 2. Normal right ventricular size and systolic function. 3. No evidence for valvular pathology The patient was tachycardic during the exam. No old study for comparison Assessment & Plan 1. Sinus tachycardia : Resolved . Likely due to dehydration , pain and anxiety . Patient presented s/p fall with multiple rib fracture HR now around 75 BPM . Episodic tachycardia and hypertension reported . Abdominal CT scan show no significant finding . Cntinue Metropolol 25 mg BID 2. Fall secondary to dizziness possibly secondary to cerebrovascular stenosis and poor vascular perfusion, POA -- ACS was ruled out -- Small left ventricular cavity size with evidence for LVH (wall thickness in the range of 1.6 to 1.8 cm) with hyperdynamic systolic function", discussed findings with a director trust Dr. Wynne. 3. Stenosis involving the proximal cavernous segment of the right internal carotid artery and distal M1 segment of the right middle cerebral artery. Mild atherosclerotic stenosis of the M1 segment of the right middle cerebral artery. and High grade stenosis involving the M1 segment of the left middle cerebral artery., Moderate to high-grade stenosis involving the A1 segment of the left anterior cerebral artery.. Moderate stenosis involving the M1 segment of the right middle cerebral artery. Seen by neurology . EEG done . Patient will follow up with repeat angiogram as outptient . To start Aspirin and Plavix at this time " 4 Post concussive syndrome, POA : Improved 5. Anxiety disorder, POA 6. Hypertensive urgency, POA: Patient reported to have elevated BP for many years but stated it`s only when I see MDs . He was put on Metropolol and lisinopril in the past but he stopped taking them because his BP was OK when he cheks it at home In any case patient has no routine care. BP has been quite arratic here . ] I will keep him on Metoprolol but I doubt he will be complaint with it. 7. Small pneumothorax : , resolved - Repeat chest X-ray today shows no new finding 8. Multiple rib fractures, thoracolumbar fractures, scapular fracture on the right side, ongoing -- Pain control - Primary is surgical/trauma team Improving. Continue plan of care as above Discharge anticipated within 24-48 hours and per surgery VTE Prophylaxis: Sub-Q Heparin (Unfractionated), SCDs VTE Mechanical Devices: Intermittant Pneumatic CD Resuscitation Status: CPR: Attempt Resuscitation ( is his alternate decision maker) Time spent 35 minutes Dewey Archer MD Dec 21, 2016 15:35
[2016-12-21] MEDS: Polyethylene Glycol (PEG) 17 Gm Powder PO SCH (18:03)
--- NOTE | 2016-12-21 19:30 | NUR ---
Pain Pt states his pain is better managed with Oxycodone 5-325 every 4-5 hours. States Toradol doesn't have the same effect. On a rotation of Oxycodone and Toradol for pain management. Care continues.
[2016-12-22] VITALS (14 sets, daily range): BP systolic 151–203; BP diastolic 76–104; PULSE 16–90; RESP 16–20; O2SAT 96–100
[2016-12-22] MEDS: Heparin 5,000 Unit/mL Inj SUBQ SCH ×3 (02:14→17:04)
[2016-12-22] MEDS: 0.9% Sodium Chloride 1,000 ML IV SCH (02:36)
--- NOTE | 2016-12-22 04:37 | NUR ---
Hypertension/Pain Management Patient continues to be hypertensive, with systolic BPs 150-190. BP medications given per orders with minimal improvement in patient's BP. Patient denies chest pain and shortness of breath. Right sided rib pain and scapular pain continues, although patient will often state that he feels "fine" and the pain is bearable. Pain becomes more intense whenever the patient attempts to ambulate or move in bed. PRN percocet and toradol given with partial improvement in pain symptoms. Continue to monitor.
[2016-12-22] MEDS: oxyCODONE-Acetamin 5-325 mg Tablet PO PRN ×4 (05:22→19:57)
--- NOTE | 2016-12-22 08:39 | PCM.PNSURG ---
Subjective Visit Information: Reason for Visit Alt Loc,Rib Fractures,Pulmornary Contusion,Back Surgery/Surgery Date Post-Op Day # Date of Admission: Dec 19, 2016 at 17:36 Hospital Day # Subjective: No acute events, BP this morning over 190 systolic. Pain control OK with po meds. Tolerating diet Objective Objective Awake, standing up in room, is in room Conversant, moves all 4, non-focal Abd: soft nontender, R flank hematoma/ecchymosis stable Vital Sign- Last 8 Hours Date Time Temp Pulse Resp B/P Pulse Ox O2 Delivery O2 Flow Rate FiO2 12/22/16 07:38 36.7 90 16 194/92 98 Room Air 12/22/16 05:43 60 12/22/16 04:10 36.4 60 20 172/94 100 Room Air 12/22/16 02:10 151/77 Intake and Output- Last 8 Hour 12/22/16 Cumulative From/Thru 07:00 12/19/16 15:54 - 12/22/16 06:11 Intake Total 1775 ml 8429 ml Output Total 900 ml 8835 ml Balance 875 ml -406 ml Intake Oral 400 ml 3075 ml IV Total 1375 ml 5354 ml Output Urine Total 900 ml 8835 ml # Voids 3 # Bowel Movements 0 0 Result Diagram: 12/21/16 0349 12/20/16 0455 Assessment & Plan Impression s/p fall with R rib fx's, TL spine TP fx's, R scapula fx, small R PTX, R flank hematoma, R elbow contusion Uncontrolled hypertension Problems: (1) Pneumothorax Qualifiers: Pneumothorax type: unspecified pneumothorax Qualified Code: J93.9 - Pneumothorax, unspecified Status: Acute ICD Code: J93.9 (2) Multiple transverse process fractures Status: Acute ICD Code: 805.8 (3) Rib fracture Qualifiers: Encounter type: initial encounter Rib fracture type: multiple ribs Fracture type: closed Laterality: right Qualified Code: S22.41XA - Multiple fractures of ribs, right side, initial encounter for closed fracture Status: Acute ICD Code: S22.39XA (4) Hypertension Qualifiers: Hypertension type: unspecified secondary hypertension Qualified Code: I15.9 - Secondary hypertension, unspecified Status: Acute ICD Code: I10 (5) Traumatic brain injury Qualifiers: Encounter type: initial encounter Loss of consciousness presence/duration: without LOC Qualified Code: S06.9X0A - Unspecified intracranial injury without loss of consciousness, initial encounter Status: Acute ICD Code: S06.9X9A (6) Pulmonary contusion Qualifiers: Encounter type: initial encounter Laterality: unspecified laterality Qualified Code: S27.329A - Contusion of lung, unspecified, initial encounter Status: Acute ICD Code: S27.329A Plan Need better control of BP prior to d/c home Need to establish with a PCP after discharge. Baby ASA and plavix for 3 months Need to f/u with [facility] (Dr. Leija) after discharge. VTE Prophylaxis: Sub-Q Heparin (Unfractionated), SCDs Resuscitation Status: CPR: Attempt Resuscitation ( is his alternate decision maker) Joshua An MD Dec 22, 2016 08:39
[2016-12-22] MEDS ORDERED: hydrALAZINE 20 mg/mL Inj IV ONE (08:50)
--- NOTE | 2016-12-22 08:56 | PCM.HPMED ---
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 He reportedly fell 6 feet, his coworker dropped him off at home. He was confused and complaining of elbow and back pain but able to ambulate independently. His daughter called EMS. Due to his level of confusion and memory loss he was evaluated for stroke. He was found to have an NIH stroke scale of 2 which is not concerning for stroke but continues to be unsure of how he got here to the hospital though he knows he is at the hospital and that the president is Khushbu. Subsequent imaging revealed multiple fractures as listed below. He is complaining of right-sided elbow and posterior rib pain. Patient's daughter is a shift stacker nurse here. She reports patient has white coat hypertension in that he has elevated blood pressures when he goes to see the doctor and has even been evaluated for hypertensive crisis however when he checks his blood pressures at home (which he did daily for 6 months) they are always less than 120 systolic. Patient himself states that he was on metoprolol , lisinopril and it did not work. Patient does not have a primary care doctor. Patient states that he has really no idea how he fell, cannot recall whether he blacked out or had any kind of pain prior to the incident. His coworkers also did not know why he fell. In the ER CT of head was negative for hemorrhage chest x-ray showed right-sided pulmonary opacity multiple different fractures CT of C-spine showed tiny right apical pneumothorax, multiple rib fractures, a CT abdominopelvic showed a right scapular fracture, right transverse fracture of lumbar thoracic spine, small pneumothorax, nondisplaced fractures of ribs 4 through 12. EKG was read as nonspecific ST changes, normal sinus rhythm labs were fairly unremarkable with the exception of elevated white count at 11.7. Troponins negative. Patient currently denies any fevers, chills or prior infections. He states that his short-term memory loss, it appears to be confused, he just had a course of Bactrim for right axilla MRSA infection. He does not believe he was dehydrated but was quite unsure. He was repeatedly asking "why am I here?". And "do I have to stay here in the hospital?". He denies photophobia, phonophobia and headaches. 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 Hx Alcohol Use: Yes (states he drinks 2 bottles of champagne per month with his ) Hx Substance Use: No Hx Tobacco Use: Yes (he smoked 3 packs per day for 10 years but quit several years ago) Smoking Status: Former Smoker, Never Smoker Living Arrangement: with Family Exam Vital Signs Vital Sign - Last Date Time Temp Pulse Resp B/P Pulse Ox O2 Delivery O2 Flow Rate FiO2 12/22/16 07:38 36.7 90 16 194/92 98 Room Air Intake and Output 12/21/16 12/21/16 12/22/16 Cumulative From/Thru 15:00 23:00 07:00 12/19/16 15:54 - 12/22/16 06:11 Intake Total 900 ml 1775 ml 8429 ml Output Total 2200 ml 900 ml 8835 ml Balance -1300 ml 875 ml -406 ml Intake Oral 900 ml 400 ml 3075 ml IV Total 1375 ml 5354 ml Output Urine Total 2200 ml 900 ml 8835 ml # Voids 3 # Bowel Movements 0 0 Lab and Diagnostics Result Diagram: 12/21/16 0349 12/20/16 0455 X-Rays, CTs and MRIs PROCEDURE: X-RAY RIGHT ELBOW COMPLETE, MINIMUM THREE VIEWS ([id number]) INDICATIONS: 61 year-old male with right elbow pain after fall from ladder. IMPRESSION: No acute bony injury to the right elbow. Dictated by: Alex Ren M.D. on 12/19/2016 at 17:46 Approved by: Alex Ren M.D. on 12/19/2016 at 17:47 PROCEDURE: CT CERVICAL SPINE WITHOUT CONTRAST ([id number]) IMPRESSION: 1. No acute bony injury to the cervical and upper thoracic spine from the foramen magnum to the T4 level. 2. Tiny right apical pneumothorax, secondary to previously noted multiple right rib fractures. Dictated by: Alex Ren M.D. on 12/19/2016 at 16:59 Approved by: Alex Ren M.D. on 12/19/2016 at 17:05 PROCEDURE: CT BRAIN WITHOUT CONTRAST ([id number]) CT head without INDICATIONS: fall off ladder, acute confusion IMPRESSION: No acute process. Dictated by: Guanako Ruiz M.D. on 12/19/2016 at 16:09 Approved by: Guanako Ruiz M.D. on 12/19/2016 at 16:09 PROCEDURE: X-RAY CHEST ONE VIEW, PORTABLE ([id number]) INDICATIONS: right sided chest pain IMPRESSION: Right-sided pulmonary opacity and multiple rib fractures, better visualized on CT chest dated 12/19/06. In addition, CT chest also demonstrated likely small pneumothorax versus bronchus injury. Dictated by: Sujatha Lipscomb M.D. on 12/19/2016 at 15:34 Approved by: Sujatha Lipscomb M.D. on 12/19/2016 at 15:36 PROCEDURE: CT CHEST, ABDOMEN AND PELVIS WITH CONTRAST ([id number]) INDICATIONS: right sided chest, abd, back pain IMPRESSION: 1. Nondisplaced right lateral rib 4th through 12th rib fractures. 2. Mild widened appearance of right major fissure. Given adjacent rib fractures and areas of pleural effusion and pulmonary opacity likely contusion/ hemothorax, appearance is most suggestive of small pneumothorax along the fissure line. A ruptured bronchus cannot be definitely excluded. 3. Nondisplaced lucency most suggestive of right scapular fracture. 4. Multiple right transverse fractures within the thoracic and lumbar spine as above. 5. Right lower pelvic subcutaneous fat contusion. 6. Sub-centimeter low attenuation hepatic foci, too small to definitively characterize. Dictated by: Sujatha Lipscomb M.D. on 12/19/2016 at 15:11 Approved by: Sujatha Lipscomb M.D. on 12/19/2016 at 15:34 PROCEDURE: MRI STROKE PROTOCOL ([id number]) Pre- and post-contrast brain MRI, non-contrast brain MR angiogram, pre- and postcontrast neck MR angiogram INDICATIONS: fall, unknown reasons, r/o stroke IMPRESSION: BRAIN MRI: 1. No acute intracranial disease process. 2. No areas of acute or chronic infarction. 3. No abnormal intracranial mass. 4. No abnormal postcontrast enhancement. BRAIN MR ANGIOGRAM: 1. High grade stenosis involving the M1 segment of the left middle cerebral artery. 2. Moderate to high-grade stenosis involving the A1 segment of the left anterior cerebral artery. 3. Moderate stenosis involving the M1 segment of the right middle cerebral artery. NECK MR ANGIOGRAM: 1. The cervical segments of the internal carotid arteries are fully patent. 2. Right vertebral artery is fully patent. 3. Moderate stenosis of the origin of the left vertebral artery. The estimate of stenosis included in the report of the imaging study was calculated using the NASCET method Dictated by: Delma Guerra MD, PhD on 12/20/2016 at 9:22 Approved by: Delma uGerra MD, PhD on 12/20/2016 at 9:45 PROCEDURE: CT ANGIOGRAPHY OF THE BRAIN WITH AND WITHOUT CONTRAST ([id number]) INDICATIONS: stroke IMPRESSION: 1. Moderate to severe atherosclerotic stenosis involving the proximal cavernous segment of the right internal carotid artery. 2. Severe atherosclerotic stenosis of the distal M1 segment of the right middle cerebral artery. 3. Mild atherosclerotic stenosis of the M1 segment of the right middle cerebral artery. 4. No evidence of large vessel occlusion. 12-lead ECG Nonspecific ST changes Cardiac Echo Impressions Echocardiogram Report from 12/20 Interpretation Summary 1. Small left ventricular cavity size with evidence for LVH (wall thickness in the range of 1.6 to 1.8 cm) with hyperdynamic systolic function. 2. Normal right ventricular size and systolic function. 3. No evidence for valvular pathology The patient was tachycardic during the exam. No old study for comparison Assessment & Plan 1. Sinus tachycardia : Resolved . Likely due to dehydration , pain and anxiety . Patient presented s/p fall with multiple rib fracture HR now around 75 BPM . Episodic tachycardia and hypertension reported . Abdominal CT scan show no significant finding . Cntinue Metropolol 25 mg BID 2. Fall secondary to dizziness possibly secondary to cerebrovascular stenosis and poor vascular perfusion, POA -- ACS was ruled out -- Small left ventricular cavity size with evidence for LVH (wall thickness in the range of 1.6 to 1.8 cm) with hyperdynamic systolic function", discussed findings with a environmental health manager Dr. Wynne. 3. Stenosis involving the proximal cavernous segment of the right internal carotid artery and distal M1 segment of the right middle cerebral artery. Mild atherosclerotic stenosis of the M1 segment of the right middle cerebral artery. and High grade stenosis involving the M1 segment of the left middle cerebral artery., Moderate to high-grade stenosis involving the A1 segment of the left anterior cerebral artery.. Moderate stenosis involving the M1 segment of the right middle cerebral artery. Seen by neurology . EEG done . Patient will follow up with repeat angiogram as outptient . To start Aspirin and Plavix at this time " 4 Post concussive syndrome, POA : Improved 5. Anxiety disorder, POA 6. Hypertensive urgency, POA: Patient reported to have elevated BP for many years but stated it`s only when I see MDs . He was put on Metropolol and lisinopril in the past but he stopped taking them because his BP was OK when he cheks it at home In any case patient has no routine care and certainly has malignant hypertension . His PB still running on the 190-200 despite IV medication and PO Metoprolol and lisinopril . 7. Small pneumothorax : , resolved - Repeat chest X-ray today pending 8. Multiple rib fractures, thoracolumbar fractures, scapular fracture on the right side, ongoing -- Pain control - Primary is surgical/trauma team Blood pressure is still a concern in this gentleman He keep making the case he has white coat hypertension . He was put on Metropolol and lisinopril in the past but he decided to stop taking them because his BP was OK when he cheks it at home The patient has malignant hypertension with BP running near the 200 despite IV antihypertensive combined with PO metoprolol an Lisinopril O am increasing the MEtoprolol to 50 mg and adding 25 mg of hydralazine TID . Risk and danger associated with hypertension discussed with the patient and his at bedside Patient does not have outpatient care or PCP . Discharge anticipated within 24-48 hours and per surgery Pain Evaluation: Adequate Pain Control VTE Prophylaxis: Sub-Q Heparin (Unfractionated), SCDs VTE Mechanical Devices: Intermittant Pneumatic CD Resuscitation Status: CPR: Attempt Resuscitation ( is his alternate decision maker) Time spent 35 minutes Dewey Archer MD Dec 22, 2016 08:56
--- NOTE | 2016-12-22 08:59 | PCM.PNMED ---
Subjective Date of Service Dec 22, 2016 Subjective No significant overnight events .No chest pain, no shortness of breath . Blood pressure still in the 190 systolic He is more cooperative today to the idea that his blood pressure is not white coat blood pressure or hospital/Dr visit related . His blood pressure is sustainly elevated even with already onging combination of IV and PO antihypertensive medications Exam Vital Signs Vital Sign - Last Date Time Temp Pulse Resp B/P Pulse Ox O2 Delivery O2 Flow Rate FiO2 12/22/16 07:38 36.7 90 16 194/92 98 Room Air Intake and Output 12/21/16 12/21/16 12/22/16 Cumulative From/Thru 15:00 23:00 07:00 12/19/16 15:54 - 12/22/16 06:11 Intake Total 900 ml 1775 ml 8429 ml Output Total 2200 ml 900 ml 8835 ml Balance -1300 ml 875 ml -406 ml Intake Oral 900 ml 400 ml 3075 ml IV Total 1375 ml 5354 ml Output Urine Total 2200 ml 900 ml 8835 ml # Voids 3 # Bowel Movements 0 0 Exam Gen : In bed comfortably. NAD. Anxious HEENT : Sclerae is anicteric Chest : No deformity. Normal respiratory effort Neck: No stridor, no JVD, trachea is midline Lungs: no crackles. No wheezing Heart: S1, S2 regular, no gallop, no murmur Abdomen: Benign. Bowel sounds normal quadrant Extremity: No edema, no calf tenderness, no cyanosis Skin: No rash, no ulcers Neuro : Grossly non focal. Very anxiou IVs and Medications Medications Reviewed: Medications were reviewed in detail Lab and Diagnostics Result Diagram: 12/21/16 0349 12/20/16 0455 X-Rays, CTs and MRIs PROCEDURE: X-RAY RIGHT ELBOW COMPLETE, MINIMUM THREE VIEWS ([id number]) INDICATIONS: 61 year-old male with right elbow pain after fall from ladder. IMPRESSION: No acute bony injury to the right elbow. Dictated by: Alex Ren M.D. on 12/19/2016 at 17:46 Approved by: Alex Ren M.D. on 12/19/2016 at 17:47 PROCEDURE: CT CERVICAL SPINE WITHOUT CONTRAST ([id number]) IMPRESSION: 1. No acute bony injury to the cervical and upper thoracic spine from the foramen magnum to the T4 level. 2. Tiny right apical pneumothorax, secondary to previously noted multiple right rib fractures. Dictated by: Alex Ren M.D. on 12/19/2016 at 16:59 Approved by: Alex Ren M.D. on 12/19/2016 at 17:05 PROCEDURE: CT BRAIN WITHOUT CONTRAST ([id number]) CT head without INDICATIONS: fall off ladder, acute confusion IMPRESSION: No acute process. Dictated by: Guanako Ruiz M.D. on 12/19/2016 at 16:09 Approved by: Guanako Ruiz M.D. on 12/19/2016 at 16:09 PROCEDURE: X-RAY CHEST ONE VIEW, PORTABLE ([id number]) INDICATIONS: right sided chest pain IMPRESSION: Right-sided pulmonary opacity and multiple rib fractures, better visualized on CT chest dated 12/19/06. In addition, CT chest also demonstrated likely small pneumothorax versus bronchus injury. Dictated by: Sujatha Lipscomb M.D. on 12/19/2016 at 15:34 Approved by: Sujatha Lipscomb M.D. on 12/19/2016 at 15:36 PROCEDURE: CT CHEST, ABDOMEN AND PELVIS WITH CONTRAST ([id number]) INDICATIONS: right sided chest, abd, back pain IMPRESSION: 1. Nondisplaced right lateral rib 4th through 12th rib fractures. 2. Mild widened appearance of right major fissure. Given adjacent rib fractures and areas of pleural effusion and pulmonary opacity likely contusion/ hemothorax, appearance is most suggestive of small pneumothorax along the fissure line. A ruptured bronchus cannot be definitely excluded. 3. Nondisplaced lucency most suggestive of right scapular fracture. 4. Multiple right transverse fractures within the thoracic and lumbar spine as above. 5. Right lower pelvic subcutaneous fat contusion. 6. Sub-centimeter low attenuation hepatic foci, too small to definitively characterize. Dictated by: Sujatha Lipscomb M.D. on 12/19/2016 at 15:11 Approved by: Sujatha Lipscomb M.D. on 12/19/2016 at 15:34 PROCEDURE: MRI STROKE PROTOCOL ([id number]) Pre- and post-contrast brain MRI, non-contrast brain MR angiogram, pre- and postcontrast neck MR angiogram INDICATIONS: fall, unknown reasons, r/o stroke IMPRESSION: BRAIN MRI: 1. No acute intracranial disease process. 2. No areas of acute or chronic infarction. 3. No abnormal intracranial mass. 4. No abnormal postcontrast enhancement. BRAIN MR ANGIOGRAM: 1. High grade stenosis involving the M1 segment of the left middle cerebral artery. 2. Moderate to high-grade stenosis involving the A1 segment of the left anterior cerebral artery. 3. Moderate stenosis involving the M1 segment of the right middle cerebral artery. NECK MR ANGIOGRAM: 1. The cervical segments of the internal carotid arteries are fully patent. 2. Right vertebral artery is fully patent. 3. Moderate stenosis of the origin of the left vertebral artery. The estimate of stenosis included in the report of the imaging study was calculated using the NASCET method Dictated by: Delma Guerra MD, PhD on 12/20/2016 at 9:22 Approved by: Delma Guerra MD, PhD on 12/20/2016 at 9:45 PROCEDURE: CT ANGIOGRAPHY OF THE BRAIN WITH AND WITHOUT CONTRAST ([id number]) INDICATIONS: stroke IMPRESSION: 1. Moderate to severe atherosclerotic stenosis involving the proximal cavernous segment of the right internal carotid artery. 2. Severe atherosclerotic stenosis of the distal M1 segment of the right middle cerebral artery. 3. Mild atherosclerotic stenosis of the M1 segment of the right middle cerebral artery. 4. No evidence of large vessel occlusion. 12-lead ECG Nonspecific ST changes Cardiac Echo Impressions Echocardiogram Report from 12/20 Interpretation Summary 1. Small left ventricular cavity size with evidence for LVH (wall thickness in the range of 1.6 to 1.8 cm) with hyperdynamic systolic function. 2. Normal right ventricular size and systolic function. 3. No evidence for valvular pathology The patient was tachycardic during the exam. No old study for comparison Assessment & Plan 1. Sinus tachycardia : Resolved . Likely due to dehydration , pain and anxiety . Patient presented s/p fall with multiple rib fracture HR now around 75 BPM . Episodic tachycardia and hypertension reported . Abdominal CT scan show no significant finding . Cntinue Metropolol 25 mg BID 2. Fall secondary to dizziness possibly secondary to cerebrovascular stenosis and poor vascular perfusion, POA -- ACS was ruled out -- Small left ventricular cavity size with evidence for LVH (wall thickness in the range of 1.6 to 1.8 cm) with hyperdynamic systolic function", discussed findings with a desk interviewer Dr. Wynne. 3. Stenosis involving the proximal cavernous segment of the right internal carotid artery and distal M1 segment of the right middle cerebral artery. Mild atherosclerotic stenosis of the M1 segment of the right middle cerebral artery. and High grade stenosis involving the M1 segment of the left middle cerebral artery., Moderate to high-grade stenosis involving the A1 segment of the left anterior cerebral artery.. Moderate stenosis involving the M1 segment of the right middle cerebral artery. Seen by neurology . EEG done . Patient will follow up with repeat angiogram as outptient . To start Aspirin and Plavix at this time " 4 Post concussive syndrome, POA : Improved 5. Anxiety disorder, POA 6. Hypertensive urgency, POA: Patient reported to have elevated BP for many years but stated it`s only when I see MDs . He was put on Metropolol and lisinopril in the past but he stopped taking them because his BP was OK when he cheks it at home In any case patient has no routine care and certainly has malignant hypertension . His PB still running on the 190-200 despite IV medication and PO Metoprolol and lisinopril . 7. Small pneumothorax : , resolved - Repeat chest X-ray today pending 8. Multiple rib fractures, thoracolumbar fractures, scapular fracture on the right side, ongoing -- Pain control - Primary is surgical/trauma team Blood pressure is still a concern in this gentleman He keep making the case he has white coat hypertension . He was put on Metropolol and lisinopril in the past but he decided to stop taking them because his BP was OK when he cheks it at home The patient has malignant hypertension with BP running near the 200 despite IV antihypertensive combined with PO metoprolol an Lisinopril O am increasing the Metoprolol to 50 mg and adding 25 mg of hydralazine TID . Risk and danger associated with hypertension discussed with the patient and his at bedside Our gaol is to decrease his blood pressure to the range of 150 for now with a final gaol of 120 Patient does not have outpatient care or PCP . Discharge anticipated within 24-48 hours and per surgery VTE Prophylaxis: Sub-Q Heparin (Unfractionated), SCDs VTE Mechanical Devices: Intermittant Pneumatic CD Resuscitation Status: CPR: Attempt Resuscitation ( is his alternate decision maker) Time spent 35 minutes Dewey Archer MD Dec 22, 2016 08:58
[2016-12-22] MEDS: Polyethylene Glycol (PEG) 17 Gm Powder PO SCH (09:38)
[2016-12-22] MEDS ORDERED: HYDROmorphone 1 mg/mL Inj IVPUSH PRN (10:13)
--- NOTE | 2016-12-22 10:27 | NUR ---
Hypertension/Pain Pt BP Left 218/115, Right 215/114 administered 10 mg Hydralazine. Pt denies chest pain, denies SOB. Care continues.
--- NOTE | 2016-12-22 10:36 | DRSVH ---
PROCEDURE: X-RAY CHEST ONE VIEW, PORTABLE ([id number]) INDICATIONS: Multiple rib fracture. Follow up for Pneumo/Hemot TECHNIQUE: One view of the chest was acquired. COMPARISON: [facility], CR, XR CHEST 2VW, 12/21/2016, 9:27. FINDINGS: Surgical changes and devices: None. Lungs and pleura: No pleural effusions or pneumothorax. Lungs are clear except for a mild degree of stranding at the right lung base and at the retrocardiac left lower lobe. Mediastinum: Mediastinal contours appear normal. Heart size is normal. Bones and chest wall: No suspicious bony lesions. Overlying soft tissues appear unremarkable. IMPRESSION: No pneumothorax found, no pneumothorax suspected. Bibasilar mild alveolar infiltration, right slightly greater than left. No definite pneumonia found. Dictated by: Yasmany Kaiser M.D. on 12/22/2016 at 10:34 Approved by: Yasmany Kaiser M.D. on 12/22/2016 at 10:34
[2016-12-22] MEDS ORDERED: hydrALAZINE 20 mg/mL Inj IV PRN (11:10)
--- NOTE | 2016-12-22 11:34 | NUR ---
Social Work: Readiness for Discharge D: Pt discussed in am rounds with MD. Pt is on day 3 of stay. Surgery is leading this pt's care. Hospitalist is consulting. No anticipated discharge timeframe discussed. Pt has been ambulating I during admission. ORTHOPEDIC ASSISTANT met with patient and at bedside to discuss discharge plan and assess for unmet needs. Pt states that he lives on [address] with his and many family members who also live in the home. Pt is I, uses no DME, and continues to work. Pt and express no concerns about discharge home once pt is medically stable; pt or another family member will transport him home when ready. Pt confirms that he has not completed advanced directives. ORTHOPEDIC ASSISTANT provided pt with information and requested copy for chart once completed. A: pt who is I at baseline. P: ANticipate pt to discharge home via POV once medically stable; ORTHOPEDIC ASSISTANT to continue to follow if needs arise. URMILA Cardenas
--- NOTE | 2016-12-22 12:00 | NUR ---
HTN Pt BP 184/94 at 1130. MD notified. MD speaking with pt and family. Clonidine patch ordered and given and Hydralazine 25 mg at 1242. Care continues.
[2016-12-23] VITALS (10 sets, daily range): BP systolic 150–187; BP diastolic 74–96; PULSE 57–73; RESP 16–18; O2SAT 98–100
[2016-12-23] MEDS: oxyCODONE-Acetamin 5-325 mg Tablet PO PRN ×5 (00:06→20:10)
[2016-12-23] MEDS: Heparin 5,000 Unit/mL Inj SUBQ SCH ×3 (00:06→16:41)
--- NOTE | 2016-12-23 06:43 | NUR ---
Hypertension / Pain /Tele / Afebrile Beginning of shift BP 193/100, pt denies Headache, dizziness or visual problems. Medicated with scheduled Metoprolol 50mg, Apresoline 25mg and IV Vasotec 0.625mg. BP check 2 hours later BP reduced to 162/76 with HR 61. BP check 2 hours later 150/74, then BP check 4 hours later was back up to 179/96 and medicated with Vasotec 0.625mg IV. Then BP check 2 hours later was 170/86 and Pt medicated with 25mg PO Apresoline around 0605. Pt medicated for pain with 2 Percocet every 4 hours, and one dose of Toradol and one dose 0.5mg IV Dilaudid for breakthrough pain. Tele SB-SR with PACs, HR 50-70s with occ HR dips into the 48-49s while sleeping. No c/o SOB, RA sats 98-99%. Pt remained afebrile all night.
[2016-12-23] MEDS: Polyethylene Glycol (PEG) 17 Gm Powder PO SCH (08:31)
--- NOTE | 2016-12-23 09:02 | PCM.PNSURG ---
Subjective Date of Service: Dec 23, 2016 Date of Service: Dec 23, 2016 Visit Information: Reason for Visit Alt Loc,Rib Fractures, Pulmonary Contusion, Transverse process fractures Date of Admission: Dec 19, 2016 at 17:36 Hospital Day # 5 Subjective: Patient reports doing well this morning. His pain continues to get better. He is not feeling short of breath and is using his incentive spirometer regularly. He does not feel chest pain or palpitations. He is not feeling feverish or having chills. He has very little to no back pain, His right flank hematoma has turned into a large area of ecchymoses with a tender slightly more firm area within. He is also complaining of some shoulder blade pain. Postop General: No Shortness of Breath, No Chest Pain Gastrointestinal: Good Appetite, Tolerating Oral Feedings, No N/V, Passing Stool Pain Management: PO (percocet), IV Push (toradol) Postop Activity: Ambulating Independently Objective Vital Sign- Last 8 Hours Date Time Temp Pulse Resp B/P Pulse Ox O2 Delivery O2 Flow Rate FiO2 12/23/16 08:13 36.5 62 18 187/88 99 12/23/16 06:05 66 18 170/86 99 Room Air 12/23/16 04:12 36.3 57 18 179/96 99 Room Air Intake and Output- Last 8 Hour 12/23/16 Cumulative From/Thru 07:00 12/19/16 15:54 - 12/23/16 06:05 Intake Total 640 ml 63946 ml Output Total 1475 ml 18776 ml Balance -835 ml -1966 ml Intake Oral 640 ml 5015 ml IV Total 5354 ml Output Urine Total 1475 ml 60756 ml # Voids 3 # Bowel Movements 0 1 General: Alert, Oriented X3, Cooperative, No Acute Distress Neck: Supple Lungs: Clear to Auscultation Heart: Regular Rate/Rhythm Abdomen: Benign, Soft, Non-tender, Other (large area of ecchymosis on right lateral flank with tenderness to palpation.) Extremities: Distal Pulses Palpable, Thigh&Calf Soft/Nontender Neuro: Grossly Neurologically Intact Catheters: None Result Diagram: 12/21/16 0349 12/20/16 4790 Diagnostics: CXR from 12/22/16 shows no suspected pneumothorax Assessment & Plan Impression Patient is a 61 yo male who fell from a ladder with R rib fractures, thoracic and lumbar spine transverse process fractures, R scapula fractures, small R pneumothorax now resolved, R flank hematoma, R elbow contusion, uncontrolled hypertension, and post concussive syndrome with memory loss. He is gradually improving. Injuries are stable. Problems: (1) Pneumothorax Qualifiers: Pneumothorax type: unspecified pneumothorax Qualified Code: J93.9 - Pneumothorax, unspecified Status: Acute ICD Code: J93.9 (2) Multiple transverse process fractures Status: Acute ICD Code: 805.8 (3) Rib fracture Qualifiers: Encounter type: subsequent encounter Rib fracture type: multiple ribs Fracture type: closed Laterality: right Status: Acute ICD Code: S22.39XA (4) Hypertension Qualifiers: Hypertension type: unspecified secondary hypertension Qualified Code: I15.9 - Secondary hypertension, unspecified Status: Acute ICD Code: I10 (5) Traumatic brain injury Qualifiers: Encounter type: subsequent encounter Loss of consciousness presence/ duration: without LOC Qualified Code: S06.9X0D - Unspecified intracranial injury without loss of consciousness, subsequent encounter Status: Acute ICD Code: S06.9X9A (6) Pulmonary contusion Qualifiers: Encounter type: subsequent encounter Laterality: unspecified laterality Qualified Code: S27.329D - Contusion of lung, unspecified, subsequent encounter Status: Acute ICD Code: S27.329A Plan Patient is surgically stable for discharge when medicine team is satisfied with his blood pressure. He will need medication for pain control. Need to establish with a PCP if this is done he does not need to follow-up with surgery however if he is not able to find a primary care provider he can be seen in follow-up by surgical team. 81mg ASA and Plavix for 3 months Need to f/u with Neurology Clinic (Dr. Leija) after discharge Pain Management: PO Percocet, IV Toradol VTE Prophylaxis: Sub-Q Heparin (Unfractionated), SCDs Resuscitation Status: CPR: Attempt Resuscitation ( is his alternate decision maker) Attending Statement: I agree with Dr. Cardoso's assessment and plan. Discharge home per hospitalist team. copies to: Joshua An MD, Erika R DO Dec 23, 2016 09:02 Joshua An MD Dec 25, 2016 08:08
--- NOTE | 2016-12-23 09:54 | PCM.PNMED ---
Subjective Date of Service Dec 23, 2016 Subjective Neurology Consultation Note Patient is a 61 year old male with a history of hypertension and hyperlipidemia who presented with multiple rib fractures, pneumothorax, and confusion after a fall from a ladder. There was no clear trigger for the fall and he was uncertain whether he lost consciousness at all. Since then, his mental status has returned to baseline. He currently denies speech difficulties, vision changes, confusion, focal weakness or numbness, dizziness, loss of consciousness , nausea, vomiting, or palpitations. He does report some right sided chest wall pain from his rib fractures, and states they limit movement in his right arm. Despite this, he has been able to ambulate well. Exam Vital Signs Vital Sign - Last Date Time Temp Pulse Resp B/P Pulse Ox O2 Delivery O2 Flow Rate FiO2 12/23/16 08:13 36.5 62 18 187/88 99 12/23/16 06:05 Room Air Intake and Output 12/22/16 12/22/16 12/23/16 Cumulative From/Thru 15:00 23:00 07:00 12/19/16 15:54 - 12/23/16 06:05 Intake Total 1300 ml 640 ml 72955 ml Output Total 2025 ml 1475 ml 06942 ml Balance -725 ml -835 ml -1966 ml Intake Oral 1300 ml 640 ml 5015 ml IV Total 5354 ml Output Urine Total 2025 ml 1475 ml 11763 ml # Voids 3 # Bowel Movements 1 0 1 Exam General: Alert, Oriented X3, Cooperative, No acute distress Head: Normocephalic, atraumatic. External ears normal. Eyes: PERRLA, EOMI. Anicteric sclerae. Mouth: Mouth normal, Mucous membranes moist/pink Neck: Neck supple with full range of motion. Chest& Lungs: Clear to auscultation bilaterally with no crackles, wheezes, or rhonchi. Cardiovascular: Regular rate/rhythm, Normal S1, Normal S2, No murmurs/rubs/ gallops Abdomen: Non-tender, Non-distended, No masses, Normoactive bowel tones, Soft Musculoskeletal: Limited range of motion of the right shoulder and arm due to pain from rib fractures. Large ecchymosis across back and right flank Extremities: No cyanosis/clubbing/edema bilaterally Neurological: Normal speech. Strength 4/4 left leg, right arm and leg. Strength 2-3/4 in right arm due to pain. Cranial Nerves 2-12 Intact, Sensation Intact, Finger-Nose normal, Reflexes Normal, Normal Gait Lab and Diagnostics Result Diagram: 12/21/16 0349 12/20/16 0455 X-Rays, CTs and MRIs PROCEDURE: X-RAY RIGHT ELBOW COMPLETE, MINIMUM THREE VIEWS ([id number]) INDICATIONS: 61 year-old male with right elbow pain after fall from ladder. IMPRESSION: No acute bony injury to the right elbow. Dictated by: Alex Ren M.D. on 12/19/2016 at 17:46 Approved by: Alex Ren M.D. on 12/19/2016 at 17:47 PROCEDURE: CT CERVICAL SPINE WITHOUT CONTRAST ([id number]) IMPRESSION: 1. No acute bony injury to the cervical and upper thoracic spine from the foramen magnum to the T4 level. 2. Tiny right apical pneumothorax, secondary to previously noted multiple right rib fractures. Dictated by: Alex Ren M.D. on 12/19/2016 at 16:59 Approved by: Alex Ren M.D. on 12/19/2016 at 17:05 PROCEDURE: CT BRAIN WITHOUT CONTRAST ([id number]) INDICATIONS: fall off ladder, acute confusion IMPRESSION: No acute process. Dictated by: Guanako Ruiz M.D. on 12/19/2016 at 16:09 Approved by: Guanako Ruiz M.D. on 12/19/2016 at 16:09 PROCEDURE: X-RAY CHEST ONE VIEW, PORTABLE ([id number]) INDICATIONS: right sided chest pain IMPRESSION: Right-sided pulmonary opacity and multiple rib fractures, better visualized on CT chest dated 12/19/06. In addition, CT chest also demonstrated likely small pneumothorax versus bronchus injury. Dictated by: Sujatha Lipscomb M.D. on 12/19/2016 at 15:34 Approved by: Sujatha Lipscomb M.D. on 12/19/2016 at 15:36 PROCEDURE: CT CHEST, ABDOMEN AND PELVIS WITH CONTRAST ([id number]) INDICATIONS: right sided chest, abd, back pain IMPRESSION: 1. Nondisplaced right lateral rib 4th through 12th rib fractures. 2. Mild widened appearance of right major fissure. Given adjacent rib fractures and areas of pleural effusion and pulmonary opacity likely contusion/ hemothorax, appearance is most suggestive of small pneumothorax along the fissure line. A ruptured bronchus cannot be definitely excluded. 3. Nondisplaced lucency most suggestive of right scapular fracture. 4. Multiple right transverse fractures within the thoracic and lumbar spine as above. 5. Right lower pelvic subcutaneous fat contusion. 6. Sub-centimeter low attenuation hepatic foci, too small to definitively characterize. Dictated by: Sujatha Lipscomb M.D. on 12/19/2016 at 15:11 Approved by: Sujatha Lipscomb M.D. on 12/19/2016 at 15:34 PROCEDURE: MRI STROKE PROTOCOL ([id number]) Pre- and post-contrast brain MRI, non-contrast brain MR angiogram, pre- and postcontrast neck MR angiogram INDICATIONS: fall, unknown reasons, r/o stroke BRAIN MRI: 1. No acute intracranial disease process. 2. No areas of acute or chronic infarction. 3. No abnormal intracranial mass. 4. No abnormal postcontrast enhancement. BRAIN MR ANGIOGRAM: 1. High grade stenosis involving the M1 segment of the left middle cerebral artery. 2. Moderate to high-grade stenosis involving the A1 segment of the left anterior cerebral artery. 3. Moderate stenosis involving the M1 segment of the right middle cerebral artery. NECK MR ANGIOGRAM: 1. The cervical segments of the internal carotid arteries are fully patent. 2. Right vertebral artery is fully patent. 3. Moderate stenosis of the origin of the left vertebral artery. The estimate of stenosis included in the report of the imaging study was calculated using the NASCET method Dictated by: Delma Guerra MD, PhD on 12/20/2016 at 9:22 Approved by: Delma Guerra MD, PhD on 12/20/2016 at 9:45 PROCEDURE: CT ANGIOGRAPHY OF THE BRAIN WITH AND WITHOUT CONTRAST ([id number]) INDICATIONS: stroke IMPRESSION: 1. Moderate to severe atherosclerotic stenosis involving the proximal cavernous segment of the right internal carotid artery. 2. Severe atherosclerotic stenosis of the distal M1 segment of the right middle cerebral artery. 3. Mild atherosclerotic stenosis of the M1 segment of the right middle cerebral artery. 4. No evidence of large vessel occlusion. 12-lead ECG Nonspecific ST changes Cardiac Echo Impressions Echocardiogram Report from 12/20 Interpretation Summary 1. Small left ventricular cavity size with evidence for LVH (wall thickness in the range of 1.6 to 1.8 cm) with hyperdynamic systolic function. 2. Normal right ventricular size and systolic function. 3. No evidence for valvular pathology The patient was tachycardic during the exam. No old study for comparison Additional Diagnostics Electroencephalogram (12/21/16) IMPRESSION: This electroencephalogram performed in the awake, drowsy and asleep states is within normal limits. 1. Given the prominent snoring, obstructive sleep apnea cannot be excluded. I recommend evaluation for this condition if clinically indicated. 2. The EKG rhythm strip was remarkable for intermittent supraventricular tachycardia. However it should be noted that the EKG study is limited as this is a single lead EKG. If clinically indicated, I do recommend obtaining a 12 lead electrocardiogram, and especially given the abnormalities appreciated on this single lead EKG, I do recommend obtaining a 12 lead electrocardiogram if this has not already been performed and this condition is noted to be new. Clinical correlation is advised. Anthony Leija MD 12/20/16 3779 Assessment & Plan Patient is a 61 year old male with a history of hypertension and hyperlipidemia who presented with multiple rib fractures, pneumothorax, and confusion after a fall from a ladder. At this point, it is uncertain what caused his fall, although the differential includes TIA/stroke vs hypotension from dehydration leading to decreased cerebral perfusion in the context of atherosclerotic stenosis of the right and left middle cerebral arteries. He has had intermittent episodes of SVT, which have been associated with right hemispheric strokes and TIAs, but these have since resolved. CT angio of the head and neck on 12/19/16 showed moderate-severe stenosis of the right internal carotid, mild stenosis of the M1 segment of the right middle cerebral artery with additional severe stenosis of the distal M1 segment of the right middle cerebral artery. MRI angio of the head/neck showed high grade stenosis involving the M1 segment of the left middle cerebral artery, moderate to high-grade stenosis involving the A1 segment of the left anterior cerebral artery, moderate stenosis involving the M1 segment of the right middle cerebral artery, and moderate stenosis of the origin of the left vertebral artery. There does not appear to be any acute intracranial process, so stroke is less likely. An electroencephalogram was within normal limits, which makes seizure less likely. He should continue with Aspirin and Plavix for at least 3 months for now. He should follow up with Neurology outpatient in 3 months after obtaining a repeat CT angio head/neck. If there is stabilization or improvement in intracranial stenosis, he may be able to continue with Aspirin 81 mg daily alone. If there is progression of his intracranial stenosis, he may require a referral to [facility] for further evaluation and treatment. Recommend optimization of control of risk factors including hypertension and hyperlipidemia. While his EEG was normal, the sleep portion of the study revealed prominent snoring, so obstructive sleep apnea may be a contributing factor to his severe hypertension. His blood pressure remains elevated inpatient ; we recommend consulting Nephrology for management of blood pressure. - Aspirin 81 mg and Plavix 75 mg for three months. - Recommend increasing atorvastatin to 80 mg qhs - Recommend systolic blood pressures between 130-140. - Recommend Nephrology consult for control of hypertension. - Repeat the CT angiogram of the head and neck in three months - Follow up in the Neurology Clinic in three months, after CT angio of head/ neck is completed - Establish with a primary care provider and possibly even a hypertension specialist/production line assembler outpatient - Recommend a Sleep Study to rule out obstructive sleep apnea, which may be contributing to his severe hypertension and cardiovascular risk factors. VTE Prophylaxis: Sub-Q Heparin (Unfractionated), SCDs VTE Mechanical Devices: Intermittant Pneumatic CD Resuscitation Status: CPR: Attempt Resuscitation ( is his alternate decision maker) Jordan Michele 5, 2017 09:54 Jordan Michele 5, 2017 09:54 Anthony Leija MD 12/20/16 1539 Thank you, again, Dr. Pedroza, for allowing me to participate in the care of your patient. Please feel free to contact me with any questions or concerns. I do recommend obtaining an electroencephalogram which is presently on going to exclude the possibility of an ictal etiology. However, in general, it is my suspicion that this episode was likely secondary to symptomatic hypotension resulting in inadequate cerebral perfusion likely to the M1 segments resulting in loss of consciousness. He was also noted to have an episode of SVT. This may be seen as well in the setting of transient ischemic attack type symptoms following the triggered by a cerebral hypoperfusion. According to his daughter he did not actually hit his head when he fell. Most commonly supraventricular tachycardia has been described following right hemispheric strokes. However, it has also been seen following a transient ischemic attack. 1. Sinus tachycardia : Resolved . Likely due to dehydration , pain and anxiety . Patient presented s/p fall with multiple rib fracture HR now around 75 BPM . Episodic tachycardia and hypertension reported . Abdominal CT scan show no significant finding . Cntinue Metropolol 25 mg BID 2. Fall secondary to dizziness possibly secondary to cerebrovascular stenosis and poor vascular perfusion, POA -- ACS was ruled out -- Small left ventricular cavity size with evidence for LVH (wall thickness in the range of 1.6 to 1.8 cm) with hyperdynamic systolic function", discussed findings with a identity access management architect Dr. Wynne. 3. Stenosis involving the proximal cavernous segment of the right internal carotid artery and distal M1 segment of the right middle cerebral artery. Mild atherosclerotic stenosis of the M1 segment of the right middle cerebral artery. and High grade stenosis involving the M1 segment of the left middle cerebral artery., Moderate to high-grade stenosis involving the A1 segment of the left anterior cerebral artery.. Moderate stenosis involving the M1 segment of the right middle cerebral artery. Seen by neurology . EEG done . Patient will follow up with repeat angiogram as outptient . To start Aspirin and Plavix at this time " 4 Post concussive syndrome, POA : Improved 5. Anxiety disorder, POA 6. Hypertensive urgency, POA: Patient reported to have elevated BP for many years but stated it`s only when I see MDs . He was put on Metropolol and lisinopril in the past but he stopped taking them because his BP was OK when he cheks it at home In any case patient has no routine care and certainly has malignant hypertension . His PB still running on the 190-200 despite IV medication and PO Metoprolol and lisinopril . 7. Small pneumothorax : , resolved - Repeat chest X-ray today pending 8. Multiple rib fractures, thoracolumbar fractures, scapular fracture on the right side, ongoing -- Pain control - Primary is surgical/trauma team Blood pressure is still a concern in this gentleman He keep making the case he has white coat hypertension . He was put on Metropolol and lisinopril in the past but he decided to stop taking them because his BP was OK when he cheks it at home The patient has malignant hypertension with BP running near the 200 despite IV antihypertensive combined with PO metoprolol an Lisinopril O am increasing the Metoprolol to 50 mg and adding 25 mg of hydralazine TID . Risk and danger associated with hypertension discussed with the patient and his at bedside Our gaol is to decrease his blood pressure to the range of 150 for now with a final gaol of 120 Patient does not have outpatient care or PCP . Discharge anticipated within 24-48 hours and per surgery VTE Prophylaxis: Sub-Q Heparin (Unfractionated), SCDs VTE Mechanical Devices: Intermittant Pneumatic CD Resuscitation Status: CPR: Attempt Resuscitation ( is his alternate decision maker) Jordan Michele Dec 23, 2016 09:54 Our gaol is to decrease his blood pressure to the range of 150 for now with a final gaol of 120 Patient does not have outpatient care or PCP . Discharge anticipated within 24-48 hours and per surgery VTE Prophylaxis: Sub-Q Heparin (Unfractionated), SCDs VTE Mechanical Devices: Intermittant Pneumatic CD Resuscitation Status: CPR: Attempt Resuscitation ( is his alternate decision maker) Jordan Michele Dec 23, 2016 09:54 at bedside Our gaol is to decrease his blood pressure to the range of 150 for now with a final gaol of 120 Patient does not have outpatient care or PCP . Discharge anticipated within 24-48 hours and per surgery VTE Prophylaxis: Sub-Q Heparin (Unfractionated), SCDs VTE Mechanical Devices: Intermittant Pneumatic CD Resuscitation Status: CPR: Attempt Resuscitation ( is his alternate decision maker) Jordan Michele Dec 23, 2016 09:54
--- NOTE | 2016-12-23 10:58 | DRSVH ---
PROCEDURE: US BILATERAL DUPLEX DOPPLER IMAGING OF THE CAROTIDS ([id number]) INDICATIONS: fall, r/o carotid stenosis TECHNIQUE: Color and pulse Doppler interrogation was performed of both carotid systems, with image documentation and velocity measurements. COMPARISON: None. FINDINGS: All stenosis calculations are based on NASCET criteria. Right side: Brachial blood pressure: Not taken. Common Carotid Artery(Distal) PSV: 82.10 cm/s Internal Carotid Artery PSV- Proximal: 68.50 cm/s Mid-lon.60 cm/s Distal: 96.40 cm/s EDV - Proximal: 19.40 cm/s Mid-lon.30 cm/s Distal: 38.40 cm/s External Carotid Artery(Proximal) PSV: 154 cm/s ICA/CCA PSV ratio: 1.17 Cesar scale imaging description: Atherosclerotic calcification is noted. Percent internal carotid artery stenosis: Less than 50% by velocity criteria. Vertebral artery: Flow direction is antegrade. Left side: Brachial blood pressure: 184/89 mm Hg. Common Carotid Artery(Distal) PSV: 76.80 cm/s Internal Carotid Artery PSV - Proximal: 60.70 cm/s Mid-lon.90 cm/s Distal: 71 cm/s EDV - Proximal: 19.10 cm/s Mid-lon.50 cm/s Distal: 24.60 cm/s External Carotid Artery(Proximal) PSV: 131 cm/s ICA/CCA PSV ratio: 0.92 Cesar scale imaging description: Atherosclerotic changes can be seen. Percent internal carotid artery stenosis: Less than 50% by velocity criteria. Vertebral artery: Flow direction is antegrade. IMPRESSION: No hemodynamically significant stenosis can be seen. Arterial hypertension incidentally noted at the time of this study. Dictated by: Jeremias Jaimes M.D. on 12/23/2016 at 9:55 Approved by: Jeremias Jaimes M.D. on 12/23/2016 at 9:56
--- NOTE | 2016-12-23 16:45 | PCM.PNMED ---
Subjective Date of Service Dec 23, 2016 Subjective No interval changes. Systolic BP still running in the 190 today No chest pain, no shortness of breath Exam Vital Signs Vital Sign - Last Date Time Temp Pulse Resp B/P Pulse Ox O2 Delivery O2 Flow Rate FiO2 12/23/16 14:45 62 156/83 12/23/16 11:40 100 12/23/16 08:13 36.5 18 12/23/16 06:05 Room Air Intake and Output 12/22/16 12/22/16 12/23/16 Cumulative From/Thru 15:00 23:00 07:00 12/19/16 15:54 - 12/23/16 06:05 Intake Total 1300 ml 640 ml 43865 ml Output Total 2025 ml 1475 ml 57017 ml Balance -725 ml -835 ml -1966 ml Intake Oral 1300 ml 640 ml 5015 ml IV Total 5354 ml Output Urine Total 2025 ml 1475 ml 78742 ml # Voids 3 # Bowel Movements 1 0 1 Exam Gen : . NAD. Well nourished male . HEENT :[place]RI[place] Chest : No deformity. Normal respiratory effort Neck: No stridor, no JVD, trachea is midline Lungs: no crackles. No wheezing Heart: S1, S2 regular, no gallop, no murmur Abdomen: Benign. Bowel sounds normal quadrant Extremity: No edema, no calf tenderness, no cyanosis Skin: No rash, no ulcers Neuro : AAOx 3. non focal IVs and Medications Medications Reviewed: Medications were reviewed in detail Lab and Diagnostics Result Diagram: 12/21/16 0349 12/20/16 0455 X-Rays, CTs and MRIs PROCEDURE: X-RAY RIGHT ELBOW COMPLETE, MINIMUM THREE VIEWS ([id number]) INDICATIONS: 61 year-old male with right elbow pain after fall from ladder. IMPRESSION: No acute bony injury to the right elbow. Dictated by: Alex Ren M.D. on 12/19/2016 at 17:46 Approved by: Alex Ren M.D. on 12/19/2016 at 17:47 PROCEDURE: CT CERVICAL SPINE WITHOUT CONTRAST ([id number]) IMPRESSION: 1. No acute bony injury to the cervical and upper thoracic spine from the foramen magnum to the T4 level. 2. Tiny right apical pneumothorax, secondary to previously noted multiple right rib fractures. Dictated by: Alex Ren M.D. on 12/19/2016 at 16:59 Approved by: Alex Ren M.D. on 12/19/2016 at 17:05 PROCEDURE: CT BRAIN WITHOUT CONTRAST ([id number]) INDICATIONS: fall off ladder, acute confusion IMPRESSION: No acute process. Dictated by: Guanako Ruiz M.D. on 12/19/2016 at 16:09 Approved by: Guanako Ruiz M.D. on 12/19/2016 at 16:09 PROCEDURE: X-RAY CHEST ONE VIEW, PORTABLE ([id number]) INDICATIONS: right sided chest pain IMPRESSION: Right-sided pulmonary opacity and multiple rib fractures, better visualized on CT chest dated 12/19/06. In addition, CT chest also demonstrated likely small pneumothorax versus bronchus injury. Dictated by: Sujatha Lipscomb M.D. on 12/19/2016 at 15:34 Approved by: Sujatha Lipscomb M.D. on 12/19/2016 at 15:36 PROCEDURE: CT CHEST, ABDOMEN AND PELVIS WITH CONTRAST ([id number]) INDICATIONS: right sided chest, abd, back pain IMPRESSION: 1. Nondisplaced right lateral rib 4th through 12th rib fractures. 2. Mild widened appearance of right major fissure. Given adjacent rib fractures and areas of pleural effusion and pulmonary opacity likely contusion/ hemothorax, appearance is most suggestive of small pneumothorax along the fissure line. A ruptured bronchus cannot be definitely excluded. 3. Nondisplaced lucency most suggestive of right scapular fracture. 4. Multiple right transverse fractures within the thoracic and lumbar spine as above. 5. Right lower pelvic subcutaneous fat contusion. 6. Sub-centimeter low attenuation hepatic foci, too small to definitively characterize. Dictated by: Sujatha Lipscomb M.D. on 12/19/2016 at 15:11 Approved by: Sujatha Lipscomb M.D. on 12/19/2016 at 15:34 PROCEDURE: MRI STROKE PROTOCOL ([id number]) Pre- and post-contrast brain MRI, non-contrast brain MR angiogram, pre- and postcontrast neck MR angiogram INDICATIONS: fall, unknown reasons, r/o stroke BRAIN MRI: 1. No acute intracranial disease process. 2. No areas of acute or chronic infarction. 3. No abnormal intracranial mass. 4. No abnormal postcontrast enhancement. BRAIN MR ANGIOGRAM: 1. High grade stenosis involving the M1 segment of the left middle cerebral artery. 2. Moderate to high-grade stenosis involving the A1 segment of the left anterior cerebral artery. 3. Moderate stenosis involving the M1 segment of the right middle cerebral artery. NECK MR ANGIOGRAM: 1. The cervical segments of the internal carotid arteries are fully patent. 2. Right vertebral artery is fully patent. 3. Moderate stenosis of the origin of the left vertebral artery. The estimate of stenosis included in the report of the imaging study was calculated using the NASCET method Dictated by: Delma Guerra MD, PhD on 12/20/2016 at 9:22 Approved by: Delma Guerra MD, PhD on 12/20/2016 at 9:45 PROCEDURE: CT ANGIOGRAPHY OF THE BRAIN WITH AND WITHOUT CONTRAST ([id number]) INDICATIONS: stroke IMPRESSION: 1. Moderate to severe atherosclerotic stenosis involving the proximal cavernous segment of the right internal carotid artery. 2. Severe atherosclerotic stenosis of the distal M1 segment of the right middle cerebral artery. 3. Mild atherosclerotic stenosis of the M1 segment of the right middle cerebral artery. 4. No evidence of large vessel occlusion. 12-lead ECG Nonspecific ST changes Cardiac Echo Impressions Echocardiogram Report from 12/20 Interpretation Summary 1. Small left ventricular cavity size with evidence for LVH (wall thickness in the range of 1.6 to 1.8 cm) with hyperdynamic systolic function. 2. Normal right ventricular size and systolic function. 3. No evidence for valvular pathology The patient was tachycardic during the exam. No old study for comparison Additional Diagnostics Electroencephalogram (12/21/16) IMPRESSION: This electroencephalogram performed in the awake, drowsy and asleep states is within normal limits. 1. Given the prominent snoring, obstructive sleep apnea cannot be excluded. I recommend evaluation for this condition if clinically indicated. 2. The EKG rhythm strip was remarkable for intermittent supraventricular tachycardia. However it should be noted that the EKG study is limited as this is a single lead EKG. If clinically indicated, I do recommend obtaining a 12 lead electrocardiogram, and especially given the abnormalities appreciated on this single lead EKG, I do recommend obtaining a 12 lead electrocardiogram if this has not already been performed and this condition is noted to be new. Clinical correlation is advised. Anthony Leija MD 12/20/16 5707 Assessment & Plan 1. Sinus tachycardia : Resolved . Likely due to dehydration , pain and anxiety . Patient presented s/p fall with multiple rib fracture HR now around 75 BPM . Episodic tachycardia and hypertension reported . 2. Fall secondary to dizziness possibly secondary to cerebrovascular stenosis and poor vascular perfusion, POA -- ACS was ruled out -- Small left ventricular cavity size with evidence for LVH (wall thickness in the range of 1.6 to 1.8 cm) with hyperdynamic systolic function", discussed findings with a shirt hemmer Dr. Wynne. 3. Stenosis involving the proximal cavernous segment of the right internal carotid artery and distal M1 segment of the right middle cerebral artery. Mild atherosclerotic stenosis of the M1 segment of the right middle cerebral artery. and High grade stenosis involving the M1 segment of the left middle cerebral artery., Moderate to high-grade stenosis involving the A1 segment of the left anterior cerebral artery.. Moderate stenosis involving the M1 segment of the right middle cerebral artery. Seen by neurology . EEG done . Patient will follow up with repeat angiogram as outptient . On Aspirin and Plavix at this time " 4 Post concussive syndrome, POA : Improved 5. Anxiety disorder, POA 6. Hypertensive urgency, POA Patient has malignant accelerated hypertension Currently on Clonidin patch 0.1 transdermally ( Started on 12/22/2016) Metoprolol 50mg BID , Hydralazine 25 mg TID, enalapril 20 mg combined with IV vasotec PRN . Will add HCTZ 25 mg PO daily . If still no control of BP , consider a higher dose of metoprolol if HR allows His blood pressure is still in the 180 190 systolic Our goal is to achieve a systolic of 150 at this time . He will follow up with primary care doctor for further titration of his BP. 7. Small pneumothorax : , resolved - Repeat chest X-ray reviewed 8. Multiple rib fractures, thoracolumbar fractures, scapular fracture on the right side, ongoing -- Pain control - Primary is surgical/trauma team . Case discussed today. No further recommendation Unchanged > BP remained in the 180-190 systolic Will increase enalapril to 40 mg PO daily . I had a long meeting with her daughter today, who is a nurse in this hospital. Patient will need close home BP monitoring and BP control to prevent another TIA /CVA and to decrease cardiovascular event risks Add Xanax 0.25mg PO BID for anxiety Hopefully home within 2 days VTE Prophylaxis: Sub-Q Heparin (Unfractionated), SCDs VTE Mechanical Devices: Intermittant Pneumatic CD Resuscitation Status: CPR: Attempt Resuscitation ( is his alternate decision maker) Time spent 25 minutes Dewey Archer MD Dec 23, 2016 16:45
--- NOTE | 2016-12-23 17:54 | NUR ---
Pain/Hypertension Pt's pain has been as high as "7/10" during this shift, primarily rib pain and R shoulder pain. He received 2 tabs of percocet and toradol IV x1 during this shift with good results, pt reported effective pain relief. He has been up ambulating in his room and hallway. Independent with ADLs. Pt's SBP remained in the 150's through the afternoon with a DBP in the 80's. At 1630 his SBP was up to 183, diastolic BP remained in the 80's. Hydralazine PO given at that time as per orders. Will continue to monitor.
[2016-12-23] MEDS ORDERED: ALPRAZolam 0.5 mg Tablet PO SCH (20:30)
[2016-12-23] MEDS: ALPRAZolam 0.25 mg Tablet PO SCH (21:24)
[2016-12-24] VITALS (12 sets, daily range): BP systolic 142–181; BP diastolic 66–86; PULSE 57–82; RESP 16–18; O2SAT 96–99
[2016-12-24] MEDS: Heparin 5,000 Unit/mL Inj SUBQ SCH ×3 (00:48→17:09)
--- NOTE | 2016-12-24 02:22 | NUR ---
bp/pain pt's bp 160-180/80's, antihypertensives helpful in decreasing pt's bp but it tends to return to 180 range by next the time next dose is due, pt states percocet alternating with toradol helpful for right rip pain control, pt states discomfort /10 when asking for pain meds, pt able to sleep tonight also with the help of a sleep aide, pt aware iv dilaudid available but prefers to take percocet and toradol, pt a/o times three, elayne, right side sore, right hip/flank area with large purple colored bruise, pt amb with steady gait in room and hallway, tele= sr, denies cardiac chest pain denies n/v denies sob, ls-= cl/decreased, ra sats upper 90's, using IS-2000, isolation precautions taken due to hx of mrsa in right arm skin sore, see assessment charting, pt wanting to go home, but also accepting need to get his bp under control,
[2016-12-24] MEDS: oxyCODONE-Acetamin 5-325 mg Tablet PO PRN ×3 (05:07→17:08)
--- NOTE | 2016-12-24 08:00 | PCM.PNSURG ---
Subjective Date of Service: Dec 24, 2016 Date of Service: Dec 24, 2016 Visit Information: Reason for Visit Alt Loc, Rib Fractures, Pulmonary Contusion, Transverse process fractures Date of Admission: Dec 19, 2016 at 17:36 Hospital Day #6 Subjective: This morning patient continues to improve. He is still experiencing pain but less so. He is not experiencing shortness of breath. He uses his incentive spirometer regularly. Is not having chest pain or palpitations, no fever or chills, no diarrhea. He is having bowel movements. He does experience some pain with walking. His right flank hematoma was again discussed. He prefers to take IV Toradol and Percocet for pain at this time. His daughter who is a overnight associate nurse was in the room this morning. Their questions were answered. Postop General: No Shortness of Breath, No Chest Pain Gastrointestinal: Good Appetite, No N/V, Passing Stool Pain Management: PO, IV Push Postop Activity: Ambulating Independently Objective Vital Sign- Last 8 Hours Date Time Temp Pulse Resp B/P Pulse Ox O2 Delivery O2 Flow Rate FiO2 12/24/16 07:47 67 16 164/75 99 Room Air 12/24/16 05:15 62 12/24/16 05:12 36.8 62 18 171/77 99 Room Air 12/24/16 01:00 62 12/24/16 01:00 36.5 62 16 178/86 96 Room Air 12/24/16 00:12 75 Intake and Output- Last 8 Hour 12/24/16 Cumulative From/Thru 07:00 12/19/16 15:54 - 12/24/16 06:30 Intake Total 800 ml 53091 ml Output Total 1750 ml 16322 ml Balance -950 ml -3991 ml Intake Oral 800 ml 6415 ml IV Total 5354 ml Output Urine Total 1750 ml 91011 ml # Voids 3 # Bowel Movements 1 2 General: Alert, Oriented X3 Neck: Supple Lungs: Clear to Auscultation Heart: Regular Rate/Rhythm, Murmur Abdomen: Soft, Non-distended, Normoactive bowel tones, Other (large area of ecchymosis on right lateral flank with mild tenderness to palpation.) Extremities: Distal Pulses Palpable, Warm Neuro: Grossly Neurologically Intact Catheters: None Result Diagram: 12/21/16 0349 12/20/16 0455 Assessment & Plan Impression Patient is a 61 yo male who fell from a ladder with R rib fractures, thoracic and lumbar spine transverse process fractures, R scapula fractures, small R pneumothorax now resolved, R flank hematoma, R elbow contusion, uncontrolled hypertension, and post concussive syndrome with memory loss. He is continuing to gradually improve. Injuries are stable. Problems: (1) Pneumothorax Qualifiers: Pneumothorax type: unspecified pneumothorax Qualified Code: J93.9 - Pneumothorax, unspecified Status: Acute ICD Code: J93.9 (2) Multiple transverse process fractures Status: Acute ICD Code: 805.8 (3) Rib fracture Qualifiers: Encounter type: subsequent encounter Rib fracture type: multiple ribs Fracture type: closed Laterality: right Status: Acute ICD Code: S22.39XA (4) Hypertension Qualifiers: Hypertension type: unspecified secondary hypertension Qualified Code: I15.9 - Secondary hypertension, unspecified Status: Acute ICD Code: I10 (5) Traumatic brain injury Qualifiers: Encounter type: subsequent encounter Loss of consciousness presence/ duration: without LOC Qualified Code: S06.9X0D - Unspecified intracranial injury without loss of consciousness, subsequent encounter Status: Acute ICD Code: S06.9X9A (6) Pulmonary contusion Qualifiers: Encounter type: subsequent encounter Laterality: unspecified laterality Qualified Code: S27.329D - Contusion of lung, unspecified, subsequent encounter Status: Acute ICD Code: S27.329A Plan Patient is surgically stable for discharge when medicine team is satisfied with his blood pressure. He will need medication for pain control. Need to establish with a PCP if this is done he does not need to follow-up with surgery however if he is not able to find a primary care provider he can be seen in follow-up by surgical team. 81mg ASA and Plavix for 3 months Need to f/u with [facility] (Dr. Leija) in 3 months. Neurologist recommends angiographic imaging prior to this visit Case was discussed with hospitalist Dr. Manrique. Surgery will sign off at this time. Pain Management: IV Toradol, by mouth Percocet VTE Prophylaxis: Sub-Q Heparin (Unfractionated), SCDs Resuscitation Status: CPR: Attempt Resuscitation ( is his alternate decision maker) Attending Statement: I agree with Dr. Cardoso's assessment and plan. Discharge home per hospitalist service. copies to: Joshua An MD, Erika R DO Dec 24, 2016 08:00 Joshua An MD Dec 25, 2016 08:13
[2016-12-24] MEDS: ALPRAZolam 0.25 mg Tablet PO SCH ×2 (08:30→22:21)
[2016-12-24] MEDS: Polyethylene Glycol (PEG) 17 Gm Powder PO SCH (08:30)
--- NOTE | 2016-12-24 09:26 | PCM.PNMED ---
Subjective Date of Service Dec 24, 2016 Subjective Neurology Consultation Note Patient is a 61 year old male with a history of hypertension and hyperlipidemia who presented with multiple rib fractures, pneumothorax, and confusion after a fall from a ladder. There was no clear trigger for the fall and he was uncertain whether he lost consciousness at all. Since then, his mental status has returned to baseline. He currently denies speech difficulties, vision changes, confusion, focal weakness or numbness, dizziness, loss of consciousness, nausea, vomiting, or palpitations. He does report some right sided chest wall pain from his rib fractures, and states they limit movement in his right arm. Despite this, he has been able to ambulate well. He reports his blood pressure is under better control now, at 164/75, and reports he "feels better", although cannot describe how he feels better. Exam Vital Signs Vital Sign - Last Date Time Temp Pulse Resp B/P Pulse Ox O2 Delivery O2 Flow Rate FiO2 12/24/16 07:47 67 16 164/75 99 Room Air 12/24/16 05:12 36.8 Intake and Output 12/23/16 12/23/16 12/24/16 Cumulative From/Thru 15:00 23:00 07:00 12/19/16 15:54 - 12/24/16 06:30 Intake Total 600 ml 800 ml 26436 ml Output Total 1675 ml 1750 ml 18834 ml Balance -1075 ml -950 ml -3991 ml Intake Oral 600 ml 800 ml 6415 ml IV Total 5354 ml Output Urine Total 1675 ml 1750 ml 23583 ml # Voids 3 # Bowel Movements 1 2 Exam General: Alert, Oriented X3, Cooperative, No acute distress Head: Normocephalic, atraumatic. External ears normal. Eyes: PERRLA, EOMI. Anicteric sclerae. Mouth: Mouth normal, Mucous membranes moist/pink Neck: Neck supple with full range of motion. Chest& Lungs: Clear to auscultation bilaterally with no crackles, wheezes, or rhonchi. Cardiovascular: Regular rate/rhythm, Normal S1, Normal S2, No murmurs/rubs/ gallops Abdomen: Non-tender, Non-distended, No masses, Normoactive bowel tones, Soft Musculoskeletal: Limited range of motion of the right shoulder and arm due to pain from rib fractures. Large ecchymosis across back and right flank Extremities: No cyanosis/clubbing/edema bilaterally Neurological: Normal speech. Strength 4/4 left leg, right arm and leg. Strength 2-3/4 in right arm due to pain. Cranial Nerves 2-12 Intact, Sensation Intact, Normal Gait Lab and Diagnostics Result Diagram: 12/21/16 0349 12/20/16 0455 X-Rays, CTs and MRIs PROCEDURE: X-RAY RIGHT ELBOW COMPLETE, MINIMUM THREE VIEWS ([id number]) INDICATIONS: 61 year-old male with right elbow pain after fall from ladder. IMPRESSION: No acute bony injury to the right elbow. Dictated by: Alex Ren M.D. on 12/19/2016 at 17:46 Approved by: Alex Ren M.D. on 12/19/2016 at 17:47 PROCEDURE: CT CERVICAL SPINE WITHOUT CONTRAST ([id number]) IMPRESSION: 1. No acute bony injury to the cervical and upper thoracic spine from the foramen magnum to the T4 level. 2. Tiny right apical pneumothorax, secondary to previously noted multiple right rib fractures. Dictated by: Alex Ren M.D. on 12/19/2016 at 16:59 Approved by: Alex Ren M.D. on 12/19/2016 at 17:05 PROCEDURE: CT BRAIN WITHOUT CONTRAST ([id number]) INDICATIONS: fall off ladder, acute confusion IMPRESSION: No acute process. Dictated by: Guanako Ruiz M.D. on 12/19/2016 at 16:09 Approved by: Guanako Ruiz M.D. on 12/19/2016 at 16:09 PROCEDURE: X-RAY CHEST ONE VIEW, PORTABLE ([id number]) INDICATIONS: right sided chest pain IMPRESSION: Right-sided pulmonary opacity and multiple rib fractures, better visualized on CT chest dated 12/19/06. In addition, CT chest also demonstrated likely small pneumothorax versus bronchus injury. Dictated by: Sujatha Lipscomb M.D. on 12/19/2016 at 15:34 Approved by: Sujatha Lipscomb M.D. on 12/19/2016 at 15:36 PROCEDURE: CT CHEST, ABDOMEN AND PELVIS WITH CONTRAST ([id number]) INDICATIONS: right sided chest, abd, back pain IMPRESSION: 1. Nondisplaced right lateral rib 4th through 12th rib fractures. 2. Mild widened appearance of right major fissure. Given adjacent rib fractures and areas of pleural effusion and pulmonary opacity likely contusion/ hemothorax, appearance is most suggestive of small pneumothorax along the fissure line. A ruptured bronchus cannot be definitely excluded. 3. Nondisplaced lucency most suggestive of right scapular fracture. 4. Multiple right transverse fractures within the thoracic and lumbar spine as above. 5. Right lower pelvic subcutaneous fat contusion. 6. Sub-centimeter low attenuation hepatic foci, too small to definitively characterize. Dictated by: Sujatha Lipscomb M.D. on 12/19/2016 at 15:11 Approved by: Sujatha Lipscomb M.D. on 12/19/2016 at 15:34 PROCEDURE: MRI STROKE PROTOCOL ([id number]) Pre- and post-contrast brain MRI, non-contrast brain MR angiogram, pre- and postcontrast neck MR angiogram INDICATIONS: fall, unknown reasons, r/o stroke BRAIN MRI: 1. No acute intracranial disease process. 2. No areas of acute or chronic infarction. 3. No abnormal intracranial mass. 4. No abnormal postcontrast enhancement. BRAIN MR ANGIOGRAM: 1. High grade stenosis involving the M1 segment of the left middle cerebral artery. 2. Moderate to high-grade stenosis involving the A1 segment of the left anterior cerebral artery. 3. Moderate stenosis involving the M1 segment of the right middle cerebral artery. NECK MR ANGIOGRAM: 1. The cervical segments of the internal carotid arteries are fully patent. 2. Right vertebral artery is fully patent. 3. Moderate stenosis of the origin of the left vertebral artery. The estimate of stenosis included in the report of the imaging study was calculated using the NASCET method Dictated by: Delma Guerra MD, PhD on 12/20/2016 at 9:22 Approved by: Delma Guerra MD, PhD on 12/20/2016 at 9:45 PROCEDURE: CT ANGIOGRAPHY OF THE BRAIN WITH AND WITHOUT CONTRAST ([id number]) INDICATIONS: stroke IMPRESSION: 1. Moderate to severe atherosclerotic stenosis involving the proximal cavernous segment of the right internal carotid artery. 2. Severe atherosclerotic stenosis of the distal M1 segment of the right middle cerebral artery. 3. Mild atherosclerotic stenosis of the M1 segment of the right middle cerebral artery. 4. No evidence of large vessel occlusion. 12-lead ECG Nonspecific ST changes Cardiac Echo Impressions Echocardiogram Report from 12/20 Interpretation Summary 1. Small left ventricular cavity size with evidence for LVH (wall thickness in the range of 1.6 to 1.8 cm) with hyperdynamic systolic function. 2. Normal right ventricular size and systolic function. 3. No evidence for valvular pathology The patient was tachycardic during the exam. No old study for comparison Additional Diagnostics Electroencephalogram (12/21/16) IMPRESSION: This electroencephalogram performed in the awake, drowsy and asleep states is within normal limits. 1. Given the prominent snoring, obstructive sleep apnea cannot be excluded. I recommend evaluation for this condition if clinically indicated. 2. The EKG rhythm strip was remarkable for intermittent supraventricular tachycardia. However it should be noted that the EKG study is limited as this is a single lead EKG. If clinically indicated, I do recommend obtaining a 12 lead electrocardiogram, and especially given the abnormalities appreciated on this single lead EKG, I do recommend obtaining a 12 lead electrocardiogram if this has not already been performed and this condition is noted to be new. Clinical correlation is advised. Antohny Leija MD 12/20/16 1539 Assessment & Plan Patient is a 61 year old male with a history of hypertension and hyperlipidemia who presented with multiple rib fractures, pneumothorax, and confusion after a fall from a ladder. At this point, it is uncertain what caused his fall, although the differential includes TIA/stroke vs hypotension from dehydration leading to decreased cerebral perfusion in the context of atherosclerotic stenosis of the right and left middle cerebral arteries. He has had intermittent episodes of SVT, which have been associated with right hemispheric strokes and TIAs, but these have since resolved. He should continue with Aspirin and Plavix for at least 3 months for now. He should follow up with Neurology outpatient in 3 months after obtaining a repeat CT angio head/neck. If there is stabilization or improvement in intracranial stenosis, he may be able to continue with Aspirin 81 mg daily alone. If there is progression of his intracranial stenosis, he may require a referral to [facility] for further evaluation and treatment. Recommend optimization of control of risk factors including hypertension and hyperlipidemia. While his EEG was normal, the sleep portion of the study revealed prominent snoring, so obstructive sleep apnea may be a contributing factor to his severe hypertension. His blood pressure is improving but is still elevated and should be improved to an SBP of 130-140 before discharge. We recommend consulting Nephrology for management of blood pressure. His 10 year risk of [place]/stroke is 12.8% based on the ACC/AHA risk calculator. Based on the ACC/AHA guidelines, he should be on a higher intensity statin. We recommend increasing his atorvastatin dose to 80 mg daily as tolerated. - Aspirin 81 mg and Plavix 75 mg for three months. - Recommend increasing atorvastatin to 80 mg qhs - Recommend systolic blood pressures between 130-140. - Recommend Nephrology consult for control of hypertension. - Repeat the CT angiogram of the head and neck in three months - Follow up in the Neurology Clinic in three months, after CT angio of head/ neck is completed - Establish with a primary care provider and possibly even a hypertension specialist/water rights specialist outpatient - Recommend a Sleep Study to rule out obstructive sleep apnea, which may be contributing to his severe hypertension and cardiovascular risk factors. VTE Prophylaxis: Sub-Q Heparin (Unfractionated), SCDs VTE Mechanical Devices: Intermittant Pneumatic CD Resuscitation Status: CPR: Attempt Resuscitation ( is his alternate decision maker) Jordan Michele Dec 24, 2016 09:26
--- NOTE | 2016-12-24 13:22 | PCM.PNMED ---
Subjective Date of Service Dec 24, 2016 Subjective He is doing well. No chest pain, or dyspnea. Some right scapular pain. No nausea, abdominal pain or diarrhea. No lightheadedness. He still is having some hypertension control problems. No overnight events Exam Vital Signs Vital Sign - Last Date Time Temp Pulse Resp B/P Pulse Ox O2 Delivery O2 Flow Rate FiO2 12/24/16 11:33 57 181/81 12/24/16 07:47 16 99 Room Air 12/24/16 05:12 36.8 Intake and Output 12/23/16 12/23/16 12/24/16 Cumulative From/Thru 15:00 23:00 07:00 12/19/16 15:54 - 12/24/16 06:30 Intake Total 600 ml 800 ml 94688 ml Output Total 1675 ml 1750 ml 45299 ml Balance -1075 ml -950 ml -3991 ml Intake Oral 600 ml 800 ml 6415 ml IV Total 5354 ml Output Urine Total 1675 ml 1750 ml 15866 ml # Voids 3 # Bowel Movements 1 2 Exam Alert and oriented -3, no distress. Fluent speech Anicteric sclera. Lungs are clear with normal rate and effort Heart is regular without murmur gallop or rub Abdomen soft nontender, flat Extremities are free of edema. Skin is free of rash or lesions. Excepting a very large ecchymosis over the right flank IVs and Medications Medications Reviewed: Medications were reviewed in detail Lab and Diagnostics Result Diagram: 12/21/16 0349 12/20/16 0455 X-Rays, CTs and MRIs PROCEDURE: X-RAY RIGHT ELBOW COMPLETE, MINIMUM THREE VIEWS ([id number]) INDICATIONS: 61 year-old male with right elbow pain after fall from ladder. IMPRESSION: No acute bony injury to the right elbow. Dictated by: Alex Ren M.D. on 12/19/2016 at 17:46 Approved by: Alex Ren M.D. on 12/19/2016 at 17:47 PROCEDURE: CT CERVICAL SPINE WITHOUT CONTRAST ([id number]) IMPRESSION: 1. No acute bony injury to the cervical and upper thoracic spine from the foramen magnum to the T4 level. 2. Tiny right apical pneumothorax, secondary to previously noted multiple right rib fractures. Dictated by: Alex Ren M.D. on 12/19/2016 at 16:59 Approved by: Alex Ren M.D. on 12/19/2016 at 17:05 PROCEDURE: CT BRAIN WITHOUT CONTRAST ([id number]) INDICATIONS: fall off ladder, acute confusion IMPRESSION: No acute process. Dictated by: Guanako Ruiz M.D. on 12/19/2016 at 16:09 Approved by: Guanako Ruiz M.D. on 12/19/2016 at 16:09 PROCEDURE: X-RAY CHEST ONE VIEW, PORTABLE ([id number]) INDICATIONS: right sided chest pain IMPRESSION: Right-sided pulmonary opacity and multiple rib fractures, better visualized on CT chest dated 12/19/06. In addition, CT chest also demonstrated likely small pneumothorax versus bronchus injury. Dictated by: Sujatha Lipscomb M.D. on 12/19/2016 at 15:34 Approved by: Sujatha Lipscomb M.D. on 12/19/2016 at 15:36 PROCEDURE: CT CHEST, ABDOMEN AND PELVIS WITH CONTRAST ([id number]) INDICATIONS: right sided chest, abd, back pain IMPRESSION: 1. Nondisplaced right lateral rib 4th through 12th rib fractures. 2. Mild widened appearance of right major fissure. Given adjacent rib fractures and areas of pleural effusion and pulmonary opacity likely contusion/ hemothorax, appearance is most suggestive of small pneumothorax along the fissure line. A ruptured bronchus cannot be definitely excluded. 3. Nondisplaced lucency most suggestive of right scapular fracture. 4. Multiple right transverse fractures within the thoracic and lumbar spine as above. 5. Right lower pelvic subcutaneous fat contusion. 6. Sub-centimeter low attenuation hepatic foci, too small to definitively characterize. Dictated by: Sujatha Lipscomb M.D. on 12/19/2016 at 15:11 Approved by: Sujatha Lipscomb M.D. on 12/19/2016 at 15:34 PROCEDURE: MRI STROKE PROTOCOL ([id number]) Pre- and post-contrast brain MRI, non-contrast brain MR angiogram, pre- and postcontrast neck MR angiogram INDICATIONS: fall, unknown reasons, r/o stroke BRAIN MRI: 1. No acute intracranial disease process. 2. No areas of acute or chronic infarction. 3. No abnormal intracranial mass. 4. No abnormal postcontrast enhancement. BRAIN MR ANGIOGRAM: 1. High grade stenosis involving the M1 segment of the left middle cerebral artery. 2. Moderate to high-grade stenosis involving the A1 segment of the left anterior cerebral artery. 3. Moderate stenosis involving the M1 segment of the right middle cerebral artery. NECK MR ANGIOGRAM: 1. The cervical segments of the internal carotid arteries are fully patent. 2. Right vertebral artery is fully patent. 3. Moderate stenosis of the origin of the left vertebral artery. The estimate of stenosis included in the report of the imaging study was calculated using the NASCET method Dictated by: Delma Guerra MD, PhD on 12/20/2016 at 9:22 Approved by: Delma Guerra MD, PhD on 12/20/2016 at 9:45 PROCEDURE: CT ANGIOGRAPHY OF THE BRAIN WITH AND WITHOUT CONTRAST ([id number]) INDICATIONS: stroke IMPRESSION: 1. Moderate to severe atherosclerotic stenosis involving the proximal cavernous segment of the right internal carotid artery. 2. Severe atherosclerotic stenosis of the distal M1 segment of the right middle cerebral artery. 3. Mild atherosclerotic stenosis of the M1 segment of the right middle cerebral artery. 4. No evidence of large vessel occlusion. 12-lead ECG Nonspecific ST changes Cardiac Echo Impressions Echocardiogram Report from 12/20 Interpretation Summary 1. Small left ventricular cavity size with evidence for LVH (wall thickness in the range of 1.6 to 1.8 cm) with hyperdynamic systolic function. 2. Normal right ventricular size and systolic function. 3. No evidence for valvular pathology The patient was tachycardic during the exam. No old study for comparison Additional Diagnostics Electroencephalogram (12/21/16) IMPRESSION: This electroencephalogram performed in the awake, drowsy and asleep states is within normal limits. 1. Given the prominent snoring, obstructive sleep apnea cannot be excluded. I recommend evaluation for this condition if clinically indicated. 2. The EKG rhythm strip was remarkable for intermittent supraventricular tachycardia. However it should be noted that the EKG study is limited as this is a single lead EKG. If clinically indicated, I do recommend obtaining a 12 lead electrocardiogram, and especially given the abnormalities appreciated on this single lead EKG, I do recommend obtaining a 12 lead electrocardiogram if this has not already been performed and this condition is noted to be new. Clinical correlation is advised. Anthony Leija MD 12/20/16 7839 Assessment & Plan 1. Sinus tachycardia : Resolved . Likely due to dehydration , pain and anxiety . Patient presented s/p fall with multiple rib fracture HR now around 75 BPM . Episodic tachycardia and hypertension reported . 2. Fall secondary to dizziness possibly secondary to cerebrovascular stenosis and poor vascular perfusion, POA -- ACS was ruled out -- Small left ventricular cavity size with evidence for LVH (wall thickness in the range of 1.6 to 1.8 cm) with hyperdynamic systolic function", discussed findings with a financial rep Dr. Wynne. 3. Stenosis involving the proximal cavernous segment of the right internal carotid artery and distal M1 segment of the right middle cerebral artery. Mild atherosclerotic stenosis of the M1 segment of the right middle cerebral artery. and High grade stenosis involving the M1 segment of the left middle cerebral artery., Moderate to high-grade stenosis involving the A1 segment of the left anterior cerebral artery.. Moderate stenosis involving the M1 segment of the right middle cerebral artery. Continue his antiplatelet agents as well as pushing his atorvastatin up to 80 mg a day as recommended by neurology. 4 Post concussive syndrome, POA : Improved . Follow clinically. 5. Anxiety disorder, POA, stable., This continues to be management problem. 6. Hypertensive urgency, POA Patient has malignant accelerated hypertension Currently on Clonidin patch 0.1 transdermally ( Started on 12/22/2016) Metoprolol 50mg BID , Hydralazine 25 mg TID, enalapril 20 mg combined with IV vasotec PRN . Will add HCTZ 25 mg PO daily . If still no control of BP , consider a higher dose of metoprolol if HR allows His blood pressure is still in the 180 190 systolic Our goal is to achieve a systolic of 150 at this time . He will follow up with primary care doctor for further titration of his BP. We will increase his metoprolol to 75 twice a day today. 7. Small pneumothorax : , resolved - Repeat chest X-ray reviewed , no further workup. 8. Multiple rib fractures, thoracolumbar fractures, scapular fracture on the right side, ongoing -- Pain control is adequate. No further workup. Surgery will sign off today. - Unchanged > BP remained in the 180-190 systolic Will increase enalapril to 40 mg PO daily . I had a long meeting with her daughter today, who is a nurse in this hospital. Patient will need close home BP monitoring and BP control to prevent another TIA /CVA and to decrease cardiovascular event risks Add Xanax 0.25mg PO BID for anxiety Hopefully home within 2 days VTE Prophylaxis: Sub-Q Heparin (Unfractionated), SCDs VTE Mechanical Devices: Intermittant Pneumatic CD Resuscitation Status: CPR: Attempt Resuscitation ( is his alternate decision maker) Time spent 25 minutes Anticipated discharge on December 25. VTE Prophylaxis: Sub-Q Heparin (Unfractionated), SCDs VTE Mechanical Devices: Intermittant Pneumatic CD Resuscitation Status: CPR: Attempt Resuscitation ( is his alternate decision maker) Bernard Manrique MD Dec 24, 2016 13:22
--- NOTE | 2016-12-24 18:42 | NUR ---
Blood pressure/activity Pt's SBP ranging from 150-180 during this shift, DBP from 60's-80's. Antihypertensives given as per ordersHe denies chest pain. Heart rate is has been stable; sinus rhythm in the 70s-80s. Pt has been up ambulating in the hallway several times during the shift. He reports "I feel good". Pain is present but tolerable, current pain regimen (2 tabs of percocet and IV toradol) has been effective in managing pain.
[2016-12-25] MEDS: oxyCODONE-Acetamin 5-325 mg Tablet PO PRN ×3 (02:02→12:53)
[2016-12-25] MEDS: Heparin 5,000 Unit/mL Inj SUBQ SCH ×2 (02:03→08:42)
[2016-12-25 04:37] VITALS: BP 153/76; PULSE 63; RESP 18; O2SAT 98
[2016-12-25 07:45] VITALS: BP 211/108; PULSE 67; RESP 16; O2SAT 100
[2016-12-25] MEDS: ALPRAZolam 0.25 mg Tablet PO SCH (08:41)
[2016-12-25] MEDS: Polyethylene Glycol (PEG) 17 Gm Powder PO SCH (08:42)
--- NOTE | 2016-12-25 08:55 | PCM.PNMED ---
Subjective Date of Service Dec 25, 2016 Subjective Neurology Consultation Note Patient is a 61 year old male with a history of hypertension and hyperlipidemia who presented with multiple rib fractures, pneumothorax, and confusion after a fall from a ladder. There was no clear trigger for the fall and he was uncertain whether he lost consciousness at all. Since then, his mental status has returned to baseline. Overnight, he did not have any pain medication for his rib fractures, and states his pain is "worse than it's ever been." His BP overnight was in the 140s -150s, but miguel to 211/108 this morning. He currently denies speech difficulties , vision changes, confusion, focal weakness or numbness, dizziness, loss of consciousness, nausea, vomiting, or palpitations. He has been able to ambulate well. Exam Vital Signs Vital Sign - Last Date Time Temp Pulse Resp B/P Pulse Ox O2 Delivery O2 Flow Rate FiO2 12/25/16 07:45 36.6 67 16 211/108 100 Room Air Intake and Output 12/24/16 12/24/16 12/25/16 Cumulative From/Thru 15:00 23:00 07:00 12/19/16 15:54 - 12/25/16 06:09 Intake Total 1800 ml 1150 ml 42404 ml Output Total 1650 ml 1200 ml 41019 ml Balance 150 ml -50 ml -3891 ml Intake Oral 1800 ml 1150 ml 9365 ml IV Total 5354 ml Output Urine Total 1650 ml 1200 ml 46840 ml # Voids 3 # Bowel Movements 2 Exam General: Alert, Oriented X3, Cooperative, No acute distress Head: Normocephalic, atraumatic. External ears normal. Eyes: PERRLA, EOMI. Anicteric sclerae. Mouth: Mouth normal, Mucous membranes moist/pink Neck: Neck supple with full range of motion. Chest& Lungs: Clear to auscultation bilaterally with no crackles, wheezes, or rhonchi. Cardiovascular: Regular rate/rhythm, Normal S1, Normal S2, No murmurs/rubs/ gallops Abdomen: Non-tender, Non-distended, No masses, Normoactive bowel tones, Soft Musculoskeletal: Limited range of motion of the right shoulder and arm due to pain from rib fractures. Large ecchymosis across back and right flank Extremities: No cyanosis/clubbing/edema bilaterally Neurological: Normal speech. Strength 4/4 left leg, right arm and leg. Strength 2-3/4 in right arm due to pain. Cranial Nerves 2-12 Intact, Sensation Intact, Normal Gait Lab and Diagnostics Result Diagram: 12/21/16 0349 12/20/16 0455 X-Rays, CTs and MRIs PROCEDURE: X-RAY RIGHT ELBOW COMPLETE, MINIMUM THREE VIEWS ([id number]) INDICATIONS: 61 year-old male with right elbow pain after fall from ladder. IMPRESSION: No acute bony injury to the right elbow. Dictated by: Alex Ren M.D. on 12/19/2016 at 17:46 Approved by: Alex Ren M.D. on 12/19/2016 at 17:47 PROCEDURE: CT CERVICAL SPINE WITHOUT CONTRAST ([id number]) IMPRESSION: 1. No acute bony injury to the cervical and upper thoracic spine from the foramen magnum to the T4 level. 2. Tiny right apical pneumothorax, secondary to previously noted multiple right rib fractures. Dictated by: Alex Ren M.D. on 12/19/2016 at 16:59 Approved by: Alex Ren M.D. on 12/19/2016 at 17:05 PROCEDURE: CT BRAIN WITHOUT CONTRAST ([id number]) INDICATIONS: fall off ladder, acute confusion IMPRESSION: No acute process. Dictated by: Guanako Ruiz M.D. on 12/19/2016 at 16:09 Approved by: Guanako Ruiz M.D. on 12/19/2016 at 16:09 PROCEDURE: X-RAY CHEST ONE VIEW, PORTABLE ([id number]) INDICATIONS: right sided chest pain IMPRESSION: Right-sided pulmonary opacity and multiple rib fractures, better visualized on CT chest dated 12/19/06. In addition, CT chest also demonstrated likely small pneumothorax versus bronchus injury. Dictated by: Sujatha Lipscomb M.D. on 12/19/2016 at 15:34 Approved by: Sujatha Lipscomb M.D. on 12/19/2016 at 15:36 PROCEDURE: CT CHEST, ABDOMEN AND PELVIS WITH CONTRAST ([id number]) INDICATIONS: right sided chest, abd, back pain IMPRESSION: 1. Nondisplaced right lateral rib 4th through 12th rib fractures. 2. Mild widened appearance of right major fissure. Given adjacent rib fractures and areas of pleural effusion and pulmonary opacity likely contusion/ hemothorax, appearance is most suggestive of small pneumothorax along the fissure line. A ruptured bronchus cannot be definitely excluded. 3. Nondisplaced lucency most suggestive of right scapular fracture. 4. Multiple right transverse fractures within the thoracic and lumbar spine as above. 5. Right lower pelvic subcutaneous fat contusion. 6. Sub-centimeter low attenuation hepatic foci, too small to definitively characterize. Dictated by: Sujatha Lipscomb M.D. on 12/19/2016 at 15:11 Approved by: Sujatha Lipscomb M.D. on 12/19/2016 at 15:34 PROCEDURE: MRI STROKE PROTOCOL ([id number]) Pre- and post-contrast brain MRI, non-contrast brain MR angiogram, pre- and postcontrast neck MR angiogram INDICATIONS: fall, unknown reasons, r/o stroke BRAIN MRI: 1. No acute intracranial disease process. 2. No areas of acute or chronic infarction. 3. No abnormal intracranial mass. 4. No abnormal postcontrast enhancement. BRAIN MR ANGIOGRAM: 1. High grade stenosis involving the M1 segment of the left middle cerebral artery. 2. Moderate to high-grade stenosis involving the A1 segment of the left anterior cerebral artery. 3. Moderate stenosis involving the M1 segment of the right middle cerebral artery. NECK MR ANGIOGRAM: 1. The cervical segments of the internal carotid arteries are fully patent. 2. Right vertebral artery is fully patent. 3. Moderate stenosis of the origin of the left vertebral artery. The estimate of stenosis included in the report of the imaging study was calculated using the NASCET method Dictated by: Delma Guerra MD, PhD on 12/20/2016 at 9:22 Approved by: Delma Guerra MD, PhD on 12/20/2016 at 9:45 PROCEDURE: CT ANGIOGRAPHY OF THE BRAIN WITH AND WITHOUT CONTRAST ([id number]) INDICATIONS: stroke IMPRESSION: 1. Moderate to severe atherosclerotic stenosis involving the proximal cavernous segment of the right internal carotid artery. 2. Severe atherosclerotic stenosis of the distal M1 segment of the right middle cerebral artery. 3. Mild atherosclerotic stenosis of the M1 segment of the right middle cerebral artery. 4. No evidence of large vessel occlusion. 12-lead ECG Nonspecific ST changes Cardiac Echo Impressions Echocardiogram Report from 12/20 Interpretation Summary 1. Small left ventricular cavity size with evidence for LVH (wall thickness in the range of 1.6 to 1.8 cm) with hyperdynamic systolic function. 2. Normal right ventricular size and systolic function. 3. No evidence for valvular pathology The patient was tachycardic during the exam. No old study for comparison Additional Diagnostics Electroencephalogram (12/21/16) IMPRESSION: This electroencephalogram performed in the awake, drowsy and asleep states is within normal limits. 1. Given the prominent snoring, obstructive sleep apnea cannot be excluded. I recommend evaluation for this condition if clinically indicated. 2. The EKG rhythm strip was remarkable for intermittent supraventricular tachycardia. However it should be noted that the EKG study is limited as this is a single lead EKG. If clinically indicated, I do recommend obtaining a 12 lead electrocardiogram, and especially given the abnormalities appreciated on this single lead EKG, I do recommend obtaining a 12 lead electrocardiogram if this has not already been performed and this condition is noted to be new. Clinical correlation is advised. Anthony Leija MD 12/20/16 [id number] Assessment & Plan Patient is a 61 year old male with a history of hypertension and hyperlipidemia who presented with multiple rib fractures, pneumothorax, and confusion after a fall from a ladder. At this point, it is uncertain what caused his fall, although the differential includes TIA/stroke vs hypotension from dehydration leading to decreased cerebral perfusion in the context of atherosclerotic stenosis of the right and left middle cerebral arteries. He has had intermittent episodes of SVT, which have been associated with right hemispheric strokes and TIAs, but these have since resolved. Fall secondary to dizziness due to poor cerebral perfusion from bilateral MCA stenosis He should continue with Aspirin and Plavix for at least 3 months for now. He should follow up with Neurology outpatient in 3 months after obtaining a repeat CT angio head/neck. If there is stabilization or improvement in intracranial stenosis, he may be able to continue with Aspirin 81 mg daily alone. If there is progression of his intracranial stenosis, he may require a referral to [facility] for further evaluation and treatment. Recommend optimization of control of risk factors including hypertension and hyperlipidemia. His 10 year risk of ND/stroke is 12.8% based on the ACC/AHA risk calculator. Based on the ACC/AHA guidelines, he should be on a high intensity statin. While his EEG was normal, the sleep portion of the study revealed prominent snoring, so obstructive sleep apnea may be a contributing factor to his severe hypertension. His blood pressure is improving but is still elevated and should be improved to an SBP of 130-140 before discharge. It appears to be gradually improving to 140s/150s with medications, but increased to 211/108 today. This was presumably due to pain from rib fractures, as he had not received any pain medications overnight. We recommend consulting Nephrology for management of blood pressure. - Recommend systolic blood pressures between 130-140. - Recommend Nephrology consult for control of hypertension. - Aspirin 81 mg and Plavix 75 mg for three months. - Continue atorvastatin to 80 mg qhs - Repeat the CT angiogram of the head and neck in three months - Follow up in the Neurology Clinic in three months, after CT angio of head/ neck is completed - Establish with a primary care provider and possibly even a hypertension specialist/plasma center technician outpatient - Recommend a Sleep Study to rule out obstructive sleep apnea, which may be contributing to his severe hypertension and cardiovascular risk factors. VTE Prophylaxis: Sub-Q Heparin (Unfractionated), SCDs VTE Mechanical Devices: Intermittant Pneumatic CD Resuscitation Status: CPR: Attempt Resuscitation ( is his alternate decision maker) Jordan Michele Dec 25, 2016 08:54
[2016-12-25 10:00] VITALS: BP 157/85
[2016-12-25 11:04] VITALS: PULSE 60
--- NOTE | 2016-12-25 11:56 | PCM.DIMED ---
Discharge Instructions Date of Service Dec 25, 2016 Dates of Hospitalization Dec 19, 2016 at 17:36 Discharge Diagnosis Discharge Diagnosis #. Sinus tachycardia : Resolved . #. Fall #. Cerebral vascular disease, POA. #. Post concussive syndrome, POA : Improved . Follow clinically. #. Anxiety disorder, stable., #. Hypertensive urgency improved. #. Small pneumothorax , resolved #.. Multiple rib fractures, thoracolumbar fractures, scapular fracture on the right side, ongoing Diet Discharge Diet: Low fat, Low Sodium Activity Discharge Activity: Limited until seen by PCP Call your provider Call your provider for: Shortness of breath, Chest pain Patient Instructions Follow-up Provider: Dewey Zambrano DO Follow-up with PCP in: 1 week Bernard Manrique MD Dec 25, 2016 11:56
[2016-12-25] MEDS ORDERED: HYDR25TA4 PO (11:59)
[2016-12-25] MEDS ORDERED: LISI-567 PO (11:59)
[2016-12-25] MEDS ORDERED: ASPI81TA3 PO (11:59)
[2016-12-25] MEDS ORDERED: CLOP75TA28 PO (11:59)
[2016-12-25] MEDS ORDERED: ATOR20TA65 PO (11:59)
[2016-12-25] MEDS ORDERED: OXYC1TAB24 PO (11:59)
[2016-12-25] MEDS ORDERED: CLON1PAT TOPICAL (11:59)
[2016-12-25] MEDS ORDERED: HYDR-3939 PO (11:59)
[2016-12-25] MEDS ORDERED: METO25TA6 PO (11:59)
--- NOTE | 2016-12-25 12:59 | NUR ---
Pt stated he went for 8 hours without pain medication, pt states he is unable to keep his pain under control. BP 211/108 at 0830. Administered 2 tablets 5 mg/325 oxycodone at 0841. MD aware. Care continues.
--- NOTE | 2016-12-25 13:54 | PCM.DC.MED ---
Discharge Summary Date of Service Dec 25, 2016 Dates of Hospitalization Date of Hospital Admission Dec 19, 2016 at 17:36 Date of Discharge: Dec 25, 2016 Providers: Admitting Physician: Natalie Pedroza DO Primary Care Physician: N[place] Attending Physician: Natalie Pedroza DO Diagnosis at Time of Discharge Diagnosis at Time of Discharge #. Sinus tachycardia : Resolved . #. Fall #. Cerebral vascular disease, POA. #. Post concussive syndrome, POA : Improved . Follow clinically. #. Anxiety disorder, stable., #. Hypertensive urgency improved. #. Small pneumothorax , resolved #.. Multiple rib fractures, thoracolumbar fractures, scapular fracture on the right side, ongoing Consultations Surgery and neurology Procedures XRay, CTs & MRIs PROCEDURE: X-RAY RIGHT ELBOW COMPLETE, MINIMUM THREE VIEWS ([id number]) INDICATIONS: 61 year-old male with right elbow pain after fall from ladder. IMPRESSION: No acute bony injury to the right elbow. Dictated by: Alex Ren M.D. on 12/19/2016 at 17:46 Approved by: Alex Ren M.D. on 12/19/2016 at 17:47 PROCEDURE: CT CERVICAL SPINE WITHOUT CONTRAST ([id number]) IMPRESSION: 1. No acute bony injury to the cervical and upper thoracic spine from the foramen magnum to the T4 level. 2. Tiny right apical pneumothorax, secondary to previously noted multiple right rib fractures. Dictated by: Alex Ren M.D. on 12/19/2016 at 16:59 Approved by: Alex Ren M.D. on 12/19/2016 at 17:05 PROCEDURE: CT BRAIN WITHOUT CONTRAST ([id number]) INDICATIONS: fall off ladder, acute confusion IMPRESSION: No acute process. Dictated by: Guanako Ruiz M.D. on 12/19/2016 at 16:09 Approved by: Guanako Ruiz M.D. on 12/19/2016 at 16:09 PROCEDURE: X-RAY CHEST ONE VIEW, PORTABLE ([id number]) INDICATIONS: right sided chest pain IMPRESSION: Right-sided pulmonary opacity and multiple rib fractures, better visualized on CT chest dated 12/19/06. In addition, CT chest also demonstrated likely small pneumothorax versus bronchus injury. Dictated by: Sujatha Lipscomb M.D. on 12/19/2016 at 15:34 Approved by: Sujatha Lipscomb M.D. on 12/19/2016 at 15:36 PROCEDURE: CT CHEST, ABDOMEN AND PELVIS WITH CONTRAST ([id number]) INDICATIONS: right sided chest, abd, back pain IMPRESSION: 1. Nondisplaced right lateral rib 4th through 12th rib fractures. 2. Mild widened appearance of right major fissure. Given adjacent rib fractures and areas of pleural effusion and pulmonary opacity likely contusion/ hemothorax, appearance is most suggestive of small pneumothorax along the fissure line. A ruptured bronchus cannot be definitely excluded. 3. Nondisplaced lucency most suggestive of right scapular fracture. 4. Multiple right transverse fractures within the thoracic and lumbar spine as above. 5. Right lower pelvic subcutaneous fat contusion. 6. Sub-centimeter low attenuation hepatic foci, too small to definitively characterize. Dictated by: Sujatha Lipscomb M.D. on 12/19/2016 at 15:11 Approved by: Sujatha Lipscomb M.D. on 12/19/2016 at 15:34 PROCEDURE: MRI STROKE PROTOCOL ([id number]) Pre- and post-contrast brain MRI, non-contrast brain MR angiogram, pre- and postcontrast neck MR angiogram INDICATIONS: fall, unknown reasons, r/o stroke BRAIN MRI: 1. No acute intracranial disease process. 2. No areas of acute or chronic infarction. 3. No abnormal intracranial mass. 4. No abnormal postcontrast enhancement. BRAIN MR ANGIOGRAM: 1. High grade stenosis involving the M1 segment of the left middle cerebral artery. 2. Moderate to high-grade stenosis involving the A1 segment of the left anterior cerebral artery. 3. Moderate stenosis involving the M1 segment of the right middle cerebral artery. NECK MR ANGIOGRAM: 1. The cervical segments of the internal carotid arteries are fully patent. 2. Right vertebral artery is fully patent. 3. Moderate stenosis of the origin of the left vertebral artery. The estimate of stenosis included in the report of the imaging study was calculated using the NASCET method Dictated by: Delma Guerra MD, PhD on 12/20/2016 at 9:22 Approved by: Delma Guerra MD, PhD on 12/20/2016 at 9:45 PROCEDURE: CT ANGIOGRAPHY OF THE BRAIN WITH AND WITHOUT CONTRAST ([id number]) INDICATIONS: stroke IMPRESSION: 1. Moderate to severe atherosclerotic stenosis involving the proximal cavernous segment of the right internal carotid artery. 2. Severe atherosclerotic stenosis of the distal M1 segment of the right middle cerebral artery. 3. Mild atherosclerotic stenosis of the M1 segment of the right middle cerebral artery. 4. No evidence of large vessel occlusion. ECG [address] changes Cardiac Echo Impression Echocardiogram Report from 12/20 Interpretation Summary 1. Small left ventricular cavity size with evidence for LVH (wall thickness in the range of 1.6 to 1.8 cm) with hyperdynamic systolic function. 2. Normal right ventricular size and systolic function. 3. No evidence for valvular pathology The patient was tachycardic during the exam. No old study for comparison Other Diagnostics Electroencephalogram (12/21/16) IMPRESSION: This electroencephalogram performed in the awake, drowsy and asleep states is within normal limits. 1. Given the prominent snoring, obstructive sleep apnea cannot be excluded. I recommend evaluation for this condition if clinically indicated. 2. The EKG rhythm strip was remarkable for intermittent supraventricular tachycardia. However it should be noted that the EKG study is limited as this is a single lead EKG. If clinically indicated, I do recommend obtaining a 12 lead electrocardiogram, and especially given the abnormalities appreciated on this single lead EKG, I do recommend obtaining a 12 lead electrocardiogram if this has not already been performed and this condition is noted to be new. Clinical correlation is advised. 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 He reportedly fell 6 feet, his coworker dropped him off at home. He was confused and complaining of elbow and back pain but able to ambulate independently. His daughter called EMS. Due to his level of confusion and memory loss he was evaluated for stroke. He was found to have an NIH stroke scale of 2 which is not concerning for stroke but continues to be unsure of how he got here to the hospital though he knows he is at the hospital and that the president is Khushbu. Subsequent imaging revealed multiple fractures as listed below. He is complaining of right-sided elbow and posterior rib pain. Patient's daughter is a manager shift nurse here. She reports patient has white coat hypertension in that he has elevated blood pressures when he goes to see the doctor and has even been evaluated for hypertensive crisis however when he checks his blood pressures at home (which he did daily for 6 months) they are always less than 120 systolic. Patient himself states that he was on metoprolol , lisinopril and it did not work. Patient does not have a primary care doctor. Patient states that he has really no idea how he fell, cannot recall whether he blacked out or had any kind of pain prior to the incident. His coworkers also did not know why he fell. In the ER CT of head was negative for hemorrhage chest x-ray showed right-sided pulmonary opacity multiple different fractures CT of C-spine showed tiny right apical pneumothorax, multiple rib fractures, a CT abdominopelvic showed a right scapular fracture, right transverse fracture of lumbar thoracic spine, small pneumothorax, nondisplaced fractures of ribs 4 through 12. EKG was read as nonspecific ST changes, normal sinus rhythm labs were fairly unremarkable with the exception of elevated white count at 11.7. Troponins negative. Patient currently denies any fevers, chills or prior infections. He states that his short-term memory loss, it appears to be confused, he just had a course of Bactrim for right axilla MRSA infection. He does not believe he was dehydrated but was quite unsure. He was repeatedly asking "why am I here?". And "do I have to stay here in the hospital?". He denies photophobia, phonophobia and headaches. Hospital Course 1. Sinus tachycardia : Resolved . Likely due to dehydration , pain and anxiety . Patient presented s/p fall with multiple rib fracture HR now around 75 BPM . Episodic tachycardia and hypertension reported . 2. Fall secondary to dizziness possibly secondary to cerebrovascular stenosis and poor vascular perfusion, POA -- ACS was ruled out -- Small left ventricular cavity size with evidence for LVH (wall thickness in the range of 1.6 to 1.8 cm) with hyperdynamic systolic function", discussed findings with a public health technologist Dr. Wynne. 3. Cerebrovascular disease with stenosis involving the proximal cavernous segment of the right internal carotid artery and distal M1 segment of the right middle cerebral artery. Mild atherosclerotic stenosis of the M1 segment of the right middle cerebral artery. and High grade stenosis involving the M1 segment of the left middle cerebral artery., Moderate to high-grade stenosis involving the A1 segment of the left anterior cerebral artery.. Moderate stenosis involving the M1 segment of the right middle cerebral artery. Continue his antiplatelet agents as well as pushing his atorvastatin up to 80 mg a day as recommended by neurology. The patient was started on dual antiplatelet agents as well as high-dose atorvastatin. No neurologic symptoms. 4 Post concussive syndrome, POA : Improved . Follow clinically. Medically he improved without any further complications. His mental status will return to baseline. 5. Anxiety disorder, POA, stable., This continues to be management problem. 6. Hypertensive urgency, POA The patient's current hospitalization was control of blood pressure. He required escalating doses in addition to multiple medications for reflux control. He had diarrhea more problems with blood pressure 1 poor pain control. Patient has malignant accelerated hypertension Currently on Clonidin patch 0.1 transdermally ( Started on 12/22/2016) Metoprolol 50mg BID , Hydralazine 25 mg TID, enalapril 20 mg combined with IV vasotec PRN . Will add HCTZ 25 mg PO daily . If still no control of BP , consider a higher dose of metoprolol if HR allows His blood pressure is still in the 180 190 systolic Our goal is to achieve a systolic of 150 at this time . He will follow up with primary care doctor for further titration of his BP. We will increase his metoprolol to 75 twice a day today. 7. Small pneumothorax : , resolved - Repeat chest X-ray reviewed , no further workup. No chest tube was required 8. Multiple rib fractures, thoracolumbar fractures, scapular fracture on the right side, ongoing -- Pain control is adequate. No further workup. The patient did generally well but had ongoing blood pressure issues with his pain when those are controlled. He was however able to get good pain control by taking 2 tabs of Percocet every 4-6 hours. - Exam Vital Signs (Last) Date Time Temp Pulse Resp B/P Pulse Ox O2 Delivery O2 Flow Rate FiO2 12/25/16 11:04 60 12/25/16 10:00 157/85 12/25/16 07:45 36.6 16 100 Room Air Exam Patient seen and examined on the day of discharge Test 12/19/16 15:52 12/19/16 20:19 12/20/16 04:55 12/21/16 03:49 Prothrombin Time 11.0sec (8.1-12.5) Prothromb Time International Ratio 1.03ratio Activated Partial Thromboplast Time 22.9sec (22.8-33.0) Total Bilirubin 0.6mg/dL (0.0-1.2) Aspartate Amino Transf (AST/SGOT) 40U/L (0-50) Alanine Aminotransferase (ALT/SGPT) 31U/L (0-44) Alkaline Phosphatase 89U/L (25-160) Total Protein 8.0g/dL (6.4-8.4) Albumin 4.7g/dL (3.4-5.0) Hold Louie Top Tube Received (Received) Alcohols < 10mg/dL (0-10) Urine Color Yellow (YELLOW) Urine Appearance Clear (CLEAR,HAZY) Urine pH 5.0 (5.0-8.0) Urine Specific [place] 1.015 (1.003-1.035) Urine Protein Negativemg/dL (NEG,TRACE) Urine Glucose (UA) Negativemg/dL (NEGATIVE) Urine Ketones Negativemg/dL (NEGATIVE) Urine Occult Blood Moderate (NEGATIVE) Urine Nitrite Negative (NEGATIVE) Urine Bilirubin Negative (NEGATIVE) Urine Urobilinogen Normalmg/dL (NORMAL) Urine Leukocyte Esterase Negative (NEGATIVE) Urine RBC 3-10/hpf (0-2) Urine WBC 0-5/hpf (0-5) Urine Epithelial Cells Few/hpf (NONE-MOD) Urine Crystals None seen (NONE SEEN) Urine Bacteria Few/hpf (NONE-FEW) Urine Hyaline Casts None/lpf (NONE) Urine Granular Casts None seen (NONE SEEN) Urine Waxy Casts None seen (NONE SEEN) Urine Red Blood Cell Casts None seen (NONE SEEN) Urine White Blood Cell Casts None seen (NONE SEEN) Urine Mucus None seen (None Seen) Urine Trichomonas None seen (NONE SEEN) Urine Yeast None (NONE SEEN) Urinalysis Comment None Sodium Level 135mEq/L (134-144) Potassium Level 4.7mEq/L (3.5-5.2) Chloride Level 96mEq/L (97-108) Carbon Dioxide Level 24mmol/L (18-29) Blood Urea Nitrogen 12mg/dL (8-27) Creatinine 0.78mg/dL (0.76-1.27) Estimat Glomerular Filtration Rate 108mL/min (>59) Glucose Level 135mg/dL (60-99) Calcium Level 9.1mg/dL (8.5-10.1) Total Creatine Kinase 397U/L (21-232) Creatine Kinase MB 6.0ng/mL (0.0-10.4) Creatine Kinase MB % % (0.0-5.0) Troponin T 0.010ug/L (0.0-0.011) White Blood Count 8.5th/mm3 (3.8-10.1) Red Blood Count 4.36mil/mm3 (4.40-5.80) Hemoglobin 12.2g/dL (13.8-17.2) Hematocrit 38.0% (41.0-50.0) Mean Corpuscular Volume 87.2fL (81-100) Mean Corpuscular Hemoglobin 28.0pg (27.0-35.0) Mean Corpuscular Hemoglobin Concent 32.1% (32.0-37.0) Red Cell Distribution Width 12.9% (12.3-15.4) Platelet Count 167bil/L (150-400) Neutrophils (%) (Auto) 74.9% (40-74) Lymphocytes (%) (Auto) 12.8% (14-46) Monocytes (%) (Auto) 11.3% (4-12) Eosinophils (%) (Auto) 0.7% (0-5) Basophils (%) (Auto) 0.2% (0-3) Triglycerides Level 84mg/dL (0-149) Cholesterol Level 179mg/dL (100-199) LDL Cholesterol, Calculated 78.200mg/dL (0-99) VLDL Cholesterol 16.800mg/dL HDL Cholesterol 84mg/dL (>39) Cholesterol/HDL Ratio 2.13 (0.0-4.4) Discharge Medications Discharge Medications Aspirin Chew (Aspirin Chew) 81 Mg Chew 81 MG PO DAILY Prescribed by: BERNARD CALIX MD Atorvastatin Calcium (Atorvastatin Calcium) 20 Mg Tablet 80 MG PO HS Prescribed by: BERNARD CALIX MD Clonidine 0.1 mg/day Patch (Catapres TTS-1) 1 Each Patch 1 PATCH TOPICAL Q7D Prescribed by: BERNARD CALIX MD Clopidogrel (Clopidogrel) 75 Mg Tablet 75 MG PO DAILY Prescribed by: BERNARD CALIX MD Hydralazine (Hydralazine) 25 Mg Tablet 25 MG PO QID Prescribed by: BERNARD CALIX MD Hydrochlorothiazide (Hydrochlorothiazide) 25 Mg Tablet 25 MG PO DAILY Prescribed by: BERNARD CALIX MD Lisinopril (Lisinopril) 20 Mg Tablet 20 MG PO DAILY Prescribed by: BERNARD CALIX MD Metoprolol Tartrate (Metoprolol Tartrate) 25 Mg Tablet 75 MG PO BID Prescribed by: BERNARD CALIX MD As needed oxyCODONE-Acetaminophen 5-325 mg (oxyCODONE-Acetaminophen 5-325 mg) 1 Each Tablet 1-2 TAB PO Q4H PRN PRN For Pain Prescribed by: BERNARD CALIX MD Followup Plan Disposition: Home with family Discharge Diet: Low fat, Low Sodium Discharge Activity: Limited until seen by PCP Follow-up Provider: Dewey Zambrano DO Follow-up with PCP in: 1 week Time spent 45 minutes Bernard Calix MD Dec 25, 2016 13:54
--- NOTE | 2016-12-25 14:28 | NUR ---
Social Work Note: Discharge Data& Assessment: Per pt is medically ready to discharge home via POV. SW met with pt and pt daughter at bedside to confirm discharge plan and assess for any unmet needs. bg Stanton is a 61 year old male admitted on 12/19/2016 for ALT loc, rib fractures and pulmonary contusions. Per pt is medically improved and ready for discharge. Pt is ambulating independently in his room and denies any need for Home Health PT machine ii coremaker as previously discussed per pt daughter. Pt would also not be homebound and meet criteria for Home Health. Pt daughter explained that pt will also be home with pt for the next week while he recovers from this hospitalization. Pt family to transport pt home this afternoon. Pt and pt family denies any other needs. No other discharge needs identified. Plan: Per pt is medically ready to discharge home via POV. Pt and pt family denies any other needs. No other discharge needs identified. All updated and agreeable to plan. URMILA Bagley
--- NOTE | 2016-12-25 15:18 | NUR ---
Discharge Pt discharged at approximately 1410 to home with . Pt given educational material for Hypertension, rib fracture, Aspirin, Atorvastatin, Clonidine, Hydrochlorithiazide, Lisinopril, Clopidogrel, Hydralazine, Metoprolol, oxycodone. Follow up appt with PCP noted. IV DCd with catheter intact. Tele DC'd gis mapping technician notified. Pt left with all personal belongings. Escorted by BUS MECHANIC with to door.
== END 2016-12-25 14:00 | disposition home or self-care (01) | DRG 309 ==
LOC: SED 15:36 → EDBD 15:36 → OBSVTOIN 17:36 → OSC 17:36 → PCC 12-20 12:09
PROVIDERS: ADMIT Family Medicine; ATTEND Family Medicine
PROC: 4A00X4Z Measurement of Central Nervous Electrical Activity, External Approach (ICD-10-PCS; principal; 2016-12-20)
DX: I47.1 Supraventricular tachycardia (principal); S22.41XA Multiple fractures of ribs, right side, initial encounter for closed fracture; S32.018A Other fracture of first lumbar vertebra, initial encounter for closed fracture; S32.028A Other fracture of second lumbar vertebra, initial encounter for closed fracture; S32.038A Other fracture of third lumbar vertebra, initial encounter for closed fracture; S22.071A Stable burst fracture of T9-T10 vertebra, initial encounter for closed fracture; S27.0XXA Traumatic pneumothorax, initial encounter; S27.329A Contusion of lung, unspecified, initial encounter; F07.81 Postconcussional syndrome; S42.101A Fracture of unspecified part of scapula, right shoulder, initial encounter for closed fracture; W11.XXXA Fall on and from ladder, initial encounter; Y99.0 Civilian activity done for income or pay; F06.4 Anxiety disorder due to known physiological condition; S30.0XXA Contusion of lower back and pelvis, initial encounter; E86.0 Dehydration; R42 Dizziness and giddiness; I65.21 Occlusion and stenosis of right carotid artery; I66.03 Occlusion and stenosis of bilateral middle cerebral arteries; I66.12 Occlusion and stenosis of left anterior cerebral artery; I16.0 Hypertensive urgency